=== PATIENT | male | born 1950 | race Caucasian/White ===

== ENCOUNTER 2022-11-16 11:36 | Observation (INO) | payer OTHER, SELFPAY ==
--- NOTE | ~2022-11-16 | CT_ITS ---
EXAMINATION: CT chest, abdomen and pelvis without IV contrast. CLINICAL INDICATIONS: Elevated LFTs. Unintentional weight loss. Smoker. COMPARISON: None. TECHNIQUE: 5 mm thin axial and reformatted 3 mm thin sagittal and coronal images of chest, abdomen and pelvis were obtained without contrast. DLP [id number]. This CT examination was performed using dose optimization technique as appropriate, variously including the following: Automated exposure control Adjustment of MA and/or KV according to patient size(this includes techniques or standardized protocols for targeted exams where dose is matched to indication/reason for exam; extremities or head. Use of iterative reconstruction techniques. FINDINGS: CHEST: LUNGS: There is minimal right apical scarring. Both lungs are otherwise fairly well-expanded and clear of acute pneumonic process. There is no consolidation, mass or atelectasis. Mediastinum: The thyroid lobes are symmetrical and normal. The central trachea and the bronchi widely patent. Heart size and the great vessels are normal caliber. No abnormal size mediastinal or hilar lymph nodes seen. No pericardial effusion seen. Pleura: There is no pleural effusion, thickening or calcified pleural plaques. Axilla: Benign lymph nodes are seen axilla. The chest wall is unremarkable. Osseous structures: No aggressive lytic or sclerotic process seen. Abdomen and pelvis: Liver, ducts and gallbladder: The liver is homogeneous in density, lobulated contour and normal size. There is diffuse ascites. No radiopaque gallstones or wall thickening seen. Spleen: Spleen is borderline normal measuring 12). There is a small accessory splenule inferior to the hilum Pancreas: Unremarkable. Adrenal glands: Unremarkable. Kidneys: There is maintained cortical thickness without any radiopaque calculi or hydronephrosis. Right renal cysts with the largest exophytic midpole cyst measures 4.3 x 4.3 cm. GI tract: There is moderate scattered stool, diverticuli and gas seen throughout the colon without significant distention or diverticulitis. The small bowel loops is nondistended and appears unremarkable. There is diffuse ascites. Scratch that Abdominal wall: Unremarkable. Lymphovascular structures: Abdominal aorta is normal caliber. There are small bilateral retroperitoneal shotty lymph nodes. Prominent collateral vessels are seen in the upper abdomen. Pelvis: The bladder is distended without radiopaque calculi or bladder wall thickening. There is slightly high density urine noted in the bladder measuring 26 Hounsfield units. There is diffuse pelvic ascites. Osseous structures: No aggressive lytic or sclerotic process seen. There is superior endplate Schmorl's node L3 vertebra and vacuum disc phenomena from L2-L3 through L5/S1 disc level. CT/CT abdomen pelvis wo IV con IMPRESSION: No acute cardiopulmonary process seen in the chest. Cirrhosis with diffuse ascites and prominent collateral vessels likely varicose veins in the upper abdomen. Right renal cysts.
--- NOTE | ~2022-11-16 | US_ITS ---
EXAMINATION: US VENOUS ULTRASOUND WITH DOPPLER LOWER EXTREMITY, RIGHT CLINICAL INFORMATION: Evaluate for DVT COMPARISON: None available. TECHNIQUE: Ultrasound of the deep veins is performed from the hip to the calf with compression sonography and color and pulse Doppler assessment. Spectral analysis with color-flow imaging is performed. FINDINGS: There is normal venous compression and respiratory variation and augmented flow. The visualized common femoral vein, superficial femoral vein, profunda femoral vein, popliteal vein, and the trifurcation region shows no evidence of deep venous thrombosis. There is no significant popliteal fossa cyst. 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 Lymph node seen in the proximal left thigh measuring 0.7 cm in short axis (3.7 cm long, 2 cm transverse). If the patient's symptoms persist, followup ultrasound in 5 days 7 days might be of value to exclude proximal propagation from a non-visualized calf vein. US/US venous duplex LE RT IMPRESSION: No DVT demonstrated in the right lower extremity.
--- NOTE | ~2022-11-16 | US_ITS ---
EXAMINATION: Ultrasound-guided paracentesis CLINICAL INFORMATION: Ascites COMPARISON: Previous CT of the abdomen and pelvis 11/16/2022 TECHNIQUE: Procedure and risks and benefits including bleeding and infection were discussed with the patient and informed consent was obtained. The midline pelvis was prepped and draped in the usual sterile fashion. The skin and soft tissues were anesthetized with 1% lidocaine plain. Using ultrasound guidance and a 4 Maltese one stick catheter, access to the ascitic fluid was obtained. 120 mL of clear yellow fluid was removed. Diagnostic specimen was sent as requested by the ordering physician. FINDINGS: There is a small amount of ascites. US/US paracentesis abd w/image IMPRESSION: Ultrasound-guided paracentesis.
[2022-11-16 11:49] LABS: Glucose, Whole Blood 372 mg/dL (60-115)
[2022-11-16 12:05] VITALS: BP 159/94; PULSE 79; RESP 16; TEMP 36.4; O2SAT 97; BMI 23.6
--- NOTE | 2022-11-16 12:06 | ED_ITS ---
HPI - General Adult General Chief complaint: Extremity Injury, Lower Stated complaint: high bs Time Seen by Provider: 11/16/22 12:51 Source: patient Mode of arrival: ambulatory Limitations: no limitations History of Present Illness HPI narrative: This is a 72 years old male presented to the emergency room referred by the urgent care complaining of elevated blood sugar her right lower extremity rash pain ongoing for about 3 or 4 days. Patient denies any past medical history he does not take any medicine he is not a smoker Onset (ago): day(s) (3) Location: lower extremity (rt leg) Radiation: non-radiation Severity: moderate Pain Consistency: constant Relieving factors: none Exacerbating factors: none Related Data Home Medications Medication Instructions Recorded Confirmed No Known Home Meds 11/16/22 11/16/22 Allergies Allergy/AdvReac Type Severity Reaction Status Date / Time No Known Allergies Allergy Verified 11/16/22 11:42 Review of Systems Constitutional: Constitutional: Reports as per HPI Cardiovascular: Cardiovascular: Reports no additional cardiovascular complaints Neurologic: Reports system reviewed and no additional complaints, except as documented PMFSH Past Medical History Attestation statement: The following information was validated with the patient. Social History Social History Smoked in Last 30 Days: Yes Use of substances other than those prescribed or required for medical reasons: No Advance Directives: No Advance Directives Information Provided: Yes Physical Exam ED Vital Signs: Vital Signs - 24 hr 11/16/22 12:05 11/16/22 12:49 11/16/22 14:00 Temperature 97.6 F Pulse Rate 79 Respiratory Rate 16 16 16 Blood Pressure 159/94 H Pulse Oximetry 97 Oxygen Delivery Method Room Air 11/16/22 15:29 Temperature 98.5 F Pulse Rate 73 Respiratory Rate 18 Blood Pressure 148/87 H Pulse Oximetry 96 Oxygen Delivery Method BMI result Body Mass Index 23.6 No toxic-appearing Const General: cooperative Nutritional Appearance: well nourished Orientation/consciousness: patient oriented x3 HENMT Head: Yes normal to inspection General nose exam: Normal external nose present Face and sinus: Yes normal facial exam Mouth: Normal oral and palatal mucosa present Throat: Yes posterior oropharynx normal Neck Neck: Yes normal visual inspection Chest Chest palpation & inspection: normal inspection of the chest Breast/axilla palpation: normal palpation of the breasts Resp Effort & Inspection: normal respiratory effort Auscultation: clear to auscultation bilaterally Cardio Jugular venous distension: no JVD Rate: regular rate Rhythm: regular rhythm GI Inspection: Yes normal to inspection Palpation (GI): Soft to palpation, not firm and nontender Auscultation: normal bowel sounds Neuro General: patient oriented x3 Extrem Other: Right lower extremity exam shows good perfusion of the foot I was able to palpate the pulses. There is a large area of of redness in the ant leg General: Yes capillary refill normal Course Course Course Narrative: This is an RME: Additional HPI, ROS, PE not included below will be deferred to primary provider. Patient is a 72-year-old male presents emergency department from urgent care. He presented there initially for evaluation of a painful itchy rash to the right lower extremity present for about 3 days, He states that he was informed while they are that he has high blood sugar, 370's and was referred to the emergency department. Plan: Labs, placed in WR pending bed availability Medications Administered Generic Name Dose Route Start Last Admin Trade Name Freq PRN Reason Stop Dose Admin Cephalexin HCl 500 mg 11/16/22 15:30 11/16/22 15:43 Cephalexin 500 Mg Capsule PO 500 mg Q12H BHUMIKA Administration Sodium Chloride 3 ml 11/16/22 16:00 11/16/22 15:44 0.9 % Sodium Chloride Flush 3 Ml Syringe IVFLUSH Not Given QSHIFT BHUMIKA Discontinued Medications Generic Name Dose Route Start Last Admin Trade Name Freq PRN Reason Stop Dose Admin Sodium Chloride 1,000 mls @ 999 mls/hr 11/16/22 13:15 11/16/22 15:03 Ns IVCONT 11/16/22 14:15 Infused .Q1H1M BHUMIKA Infusion Ceftriaxone Sodium 1 gm/ 50 mls @ 100 mls/hr 11/16/22 14:45 11/16/22 15:44 Sodium Chloride IV 11/16/22 15:14 Infused ONCE ONE Infusion Insulin Human Lispro 5 unit 11/16/22 14:45 11/16/22 15:04 Insulin Lispro 100 Unit/Ml 3 Ml Vial SUBCUT 11/16/22 14:46 5 unit ONCE ONE Administration Medical Decision Making Medical Decision Making MDM Narrative: Patient presented to the emergency department complaining of with a blood sugar and right lower extremity redness. It is reasonable to do an ultrasound to rule out DVT Differential Diagnosis Differential Diagnoses: The differential diagnosis associated with the presentation includes DVT/ cellulitis Admission/Observation Consideration of admission/observation: Escalation of care including admission/observation considered Consult Healthcare Provider Management of the patient was discussed with: Hospitalist Lab Data MDM Lab Attestation statement: I reviewed the patient's lab results. 11/16/22 12:15 11/16/22 12:15 Labs: Lab Results 11/16/22 11/16/22 11/16/22 Range/Units 11:43 12:15 12:15 WBC 8.3 (4.8-10.8) X10*3/uL RBC 4.13 L (4.60-5.80) X10*6/uL Hgb 14.0 (14.0-18.0) g/dl Hct 41.1 L (42.0-52.0) % MCV 99.5 H (80.0-98.0) fL MCH 33.9 H (27.0-33.0) pg MCHC 34.1 (31.0-36.0) g/dl RDW 12.4 (11.0-16.0) % Plt Count 91 L (160-400) X10*3/uL MPV 10.1 (9.4-12.4) fL Immature Gran % (Auto) 0.4 (0.0-0.4) % Neut % (Auto) 65.3 (45-73) % Lymph % (Auto) 25.3 (20-40) % [place] % (Auto) 7.8 (2-11) % Eos % (Auto) 0.8 (0-4) % Baso % (Auto) 0.4 (0-2) % Lymph # (Auto) 2.1 (1.2-4.9) X10*3/uL [place] # (Auto) 0.7 (0.1-1.2) X10*3/uL Eos # (Auto) 0.1 (0.0-0.4) X10*3/uL Baso # (Auto) 0.0 (0.0-0.2) X10*3/uL Abs Immat Gran (auto) 0.03 (0.00-0.03) X10*3/uL Absolute Neuts (auto) 5.4 (2.0-8.3) x10*3/uL Absolute Nucleated RBC 0.000 (0.0-0.012) X10*3/uL Nucleated RBC % (auto) 0.0 (0.0-0.2) /100WBC ESR (0-15) MM/HR Sodium 137 (135-145) mmol/L Potassium 4.8 (3.3-5.1) mmol/L Chloride 102 (96-108) mmol/L Carbon Dioxide 30 H (22-29) mmol/L Anion Gap 10 L (12-20) BUN 11 (9-16) mg/dL Creatinine 0.97 (0.5-1.4) mg/dL Estim Creat Clear Calc 70.8 Estimated GFR > 60 POC Glucose 372 H* (60-115) mg/dL Random Glucose 387 H* (60-115) mg/dL Estimat Average Glucose mg/dL Hemoglobin A1c % % Calcium 9.0 (8.4-10.2) mg/dL Total Bilirubin 1.2 H (0.0-1.0) mg/dL AST 56 H (5-37) U/L ALT 86 H (0-40) U/L Alkaline Phosphatase 181 H (39-117) U/L C-Reactive Protein Cancelled Total Protein 6.9 (6.5-8.0) g/dL Albumin 3.1 L (3.5-5.0) g/dL 11/16/22 11/16/22 11/16/22 Range/Units 12:15 12:15 13:55 WBC (4.8-10.8) X10*3/uL RBC (4.60-5.80) X10*6/uL Hgb (14.0-18.0) g/dl Hct (42.0-52.0) % MCV (80.0-98.0) fL MCH (27.0-33.0) pg MCHC (31.0-36.0) g/dl RDW (11.0-16.0) % Plt Count (160-400) X10*3/uL MPV (9.4-12.4) fL Immature Gran % (Auto) (0.0-0.4) % Neut % (Auto) (45-73) % Lymph % (Auto) (20-40) % [place] % (Auto) (2-11) % Eos % (Auto) (0-4) % Baso % (Auto) (0-2) % Lymph # (Auto) (1.2-4.9) X10*3/uL [place] # (Auto) (0.1-1.2) X10*3/uL Eos # (Auto) (0.0-0.4) X10*3/uL Baso # (Auto) (0.0-0.2) X10*3/uL Abs Immat Gran (auto) (0.00-0.03) X10*3/uL Absolute Neuts (auto) (2.0-8.3) x10*3/uL Absolute Nucleated RBC (0.0-0.012) X10*3/uL Nucleated RBC % (auto) (0.0-0.2) /100WBC ESR 18 H (0-15) MM/HR Sodium (135-145) mmol/L Potassium (3.3-5.1) mmol/L Chloride (96-108) mmol/L Carbon Dioxide (22-29) mmol/L Anion Gap (12-20) BUN (9-16) mg/dL Creatinine (0.5-1.4) mg/dL Estim Creat Clear Calc Estimated GFR POC Glucose (60-115) mg/dL Random Glucose (60-115) mg/dL Estimat Average Glucose 260 mg/dL Hemoglobin A1c % 10.7 % Calcium (8.4-10.2) mg/dL Total Bilirubin (0.0-1.0) mg/dL AST (5-37) U/L ALT (0-40) U/L Alkaline Phosphatase (39-117) U/L C-Reactive Protein 4.73 H Total Protein (6.5-8.0) g/dL Albumin (3.5-5.0) g/dL Independent Interpretation I performed an independent interpretation of an: Ultrasound Interpretation: no dvt Radiology Impression Discussion of test interpretation with radiology: I have reviewed the radiologist's reading. Independent Historian FINDINGS: There is normal venous compression and respiratory variation and augmented flow. The visualized common femoral vein, superficial femoral vein, profunda femoral vein, popliteal vein, and the trifurcation region shows no evidence of deep venous thrombosis. ? There is no significant popliteal fossa cyst. There is a spray unit feeder vessel demonstrated in the calf. Lymph node seen in the proximal left thigh measuring 0.7 cm in short axis (3.7 cm long, 2 cm transverse). If the patient's symptoms persist, followup ultrasound in 5 days 7 days might be of value to exclude proximal propagation from a non-visualized calf vein. US/US venous duplex LE RT IMPRESSION: No DVT demonstrated in the right lower extremity. Dictated By: Giovanny Crawford MD Signed By: <Electronically signed by Giovanny Crawford MD in [place]> 11/16/22 1405 Prescription Management I considered prescription management with: Antibiotic Discharge Plan Discharge Clinical Impression: Cellulitis of right leg, Newly diagnosed diabetes, Thrombocytopenia Patient Disposition: Admitted As Inpatient
[2022-11-16 12:19] LABS: MANUAL DIFF FLAG NO
[2022-11-16 12:26] LABS: Basophils Percent Auto 0.4 % (0-2); Eosinophils Absolute Auto 0.1 X10*3/uL (0.0-0.4); Eosinophils Percent Auto 0.8 % (0-4); Hematocrit 41.1 % (42.0-52.0); Imm Gran Abs Auto 0.03 X10*3/uL (0.00-0.03); Imm Gran Pct Auto 0.4 % (0.0-0.4); Lymphocytes Absolute Auto 2.1 X10*3/uL (1.2-4.9); Lymphocytes Percent Auto 25.3 % (20-40); Mean Corpuscular HGB Conc 34.1 g/dl (31.0-36.0); Mean Corpuscular Hemoglobin 33.9 pg (27.0-33.0); Mean Corpuscular Volume 99.5 fL (80.0-98.0); Mean Platelet Volume 10.1 fL (9.4-12.4); Monocytes Absolute Auto 0.7 X10*3/uL (0.1-1.2); Monocytes Percent Auto 7.8 % (2-11); Neutrophils Absolute Auto 5.4 x10*3/uL (2.0-8.3); Neutrophils Percent Auto 65.3 % (45-73); Platelet Count 91 X10*3/uL (160-400); Red Blood Count 4.13 X10*6/uL (4.60-5.80); Red Cell Distribution Width 12.4 % (11.0-16.0); White Blood Count 8.3 X10*3/uL (4.8-10.8)
[2022-11-16 12:27] LABS: Estimated Average Glucose 260 mg/dL; Hemoglobin A1c % 10.7 %
[2022-11-16 12:39] LABS: Alanine Aminotransferase 86 U/L (0-40); Albumin Level 3.1 g/dL (3.5-5.0); Alkaline Phosphatase 181 U/L (39-117); Anion Gap 10 (12-20); Aspartate Amino Transferase 56 U/L (5-37); Bilirubin Total 1.2 mg/dL (0.0-1.0); Blood Urea Nitrogen 11 mg/dL (9-16); Carbon Dioxide 30 mmol/L (22-29); Chloride 102 mmol/L (96-108); Creatinine Clr Calc Pharmacy 70.8; Estimated Glomerular Filt Rate > 60; Glucose Random 387 mg/dL (60-115); Potassium 4.8 mmol/L (3.3-5.1); Sodium 137 mmol/L (135-145); Total Protein 6.9 g/dL (6.5-8.0)
[2022-11-16 12:49] VITALS: RESP 16
[2022-11-16] MEDS: 0.9 % Sodium Chloride 1,000 ML 999 ML IVCONT (13:56)
[2022-11-16 13:57] LABS: Erythrocyte Sedimentation Rate 18 MM/HR (0-15)
[2022-11-16 14:00] VITALS: RESP 16
[2022-11-16 14:14] LABS: C Reactive Protein 4.73 mg/dL (< or = 0.50)
[2022-11-16] MEDS: cefTRIAXone sodium 1 GM in 0.9 % Sodium Chloride 50 ML IV (15:04)
[2022-11-16] MEDS: Insulin Lispro 100 UNIT/ML 3 ML VIAL SUBCUT ×3 (15:04→20:53)
--- NOTE | 2022-11-16 15:19 | PC.NURSE ---
pt a&o x4, pleasant, calm, and cooperative. resting quietly on stretcher in no apparent distress. medicated per mar. compliant with care plan. rr even/unlabored. given warm blanket. wctm
--- NOTE | 2022-11-16 15:25 | PHA.MEDREC ---
Pharmacy Consult ? Medication Reconciliation Pharmacy has completed the medication reconciliation.
[2022-11-16 15:29] VITALS: BP 148/87; PULSE 73; RESP 18; TEMP 36.9; O2SAT 96
--- NOTE | 2022-11-16 15:33 | PM.IMHP ---
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 noted several days of RLE cramping, prutitis, then 2 days ptp had red/purple rash on lower leg. denies fever or chills. reports on and off swelling after driving. also reporting about 20lbs unintentional weight loss over several weeks. polydypsia. in ED found to have hyperglycemia. Review of Systems Review of Systems: Yes all other systems are reviewed and are negative [facility] Social History Smoked in Last 30 Days: Yes Use of substances other than those prescribed or required for medical reasons: No Advance Directives: No Advance Directives Information Provided: Yes Meds Allergies Allergy/AdvReac Type Severity Reaction Status Date / Time No Known Allergies Allergy Verified 11/16/22 11:42 Active Medications: Current Medications Cephalexin HCl (Cephalexin 500 Mg Capsule) 500 mg PO Q12H BHUMIKA Dextrose (Dextrose 50 % 25 Gm/50 Ml Syringe) 25 gm IVPUSH Q15M PRN; Protocol PRN Reason: per Hypoglycemia Standing Ord. Glucose (Glucose Gel 15 Gm Gel..Gram.) 15 gm PO Q15M PRN; Protocol PRN Reason: per Hypoglycemia Standing Ord. Insulin Glargine (Insulin Glargine,Hum.Rec.Anlog 100 Unit/Ml 10 Ml Vial) 15 unit SUBCUT BEDTIME BHUMIKA Insulin Human Lispro (Insulin Lispro 100 Unit/Ml 3 Ml Vial) 0 unit SUBCUT QIDACHS BHUMIKA; Protocol Home Medications Medication Instructions Recorded Confirmed Last Taken Type No Known Home Meds 11/16/22 11/16/22 Unknown History Physical Exam Vital Signs and Narrative: Vital Signs: Last Vital Signs Temp 98.5 F 11/16/22 15:29 Pulse 73 11/16/22 15:29 Resp 18 11/16/22 15:29 BP 148/87 H 11/16/22 15:29 Pulse Ox 96 11/16/22 15:29 O2 Del Method Room Air 11/16/22 12:05 BMI result Body Mass Index 23.6 General: AO X 3, no acute distress Resp: CTA bilateral, no accessory muscles used CVS: S1,S2,RRR GI: soft, non tender, non distended Neuro: motor grossly intact, alert Psych: appropriate affect, appropriate insight skin: RLE purple/red rash, non tender, no swelling Results Labs 11/16/22 12:15 11/16/22 12:15 Labs: Laboratory Results - last 24 hr 11/16/22 11/16/22 11/16/22 11:43 12:15 12:15 MCV 99.5 H MCH 33.9 H MCHC 34.1 RDW 12.4 Plt Count 91 L MPV 10.1 Immature Gran % (Auto) 0.4 Neut % (Auto) 65.3 Lymph % (Auto) 25.3 [place] % (Auto) 7.8 Eos % (Auto) 0.8 Baso % (Auto) 0.4 Lymph # (Auto) 2.1 [place] # (Auto) 0.7 Eos # (Auto) 0.1 Baso # (Auto) 0.0 Abs Immat Gran (auto) 0.03 Absolute Neuts (auto) 5.4 Absolute Nucleated RBC 0.000 Nucleated RBC % (auto) 0.0 ESR Anion Gap 10 L Estim Creat Clear Calc 70.8 Estimated GFR > 60 POC Glucose 372 H* Random Glucose 387 H* Estimat Average Glucose Hemoglobin A1c % Calcium 9.0 Total Bilirubin 1.2 H AST 56 H ALT 86 H Alkaline Phosphatase 181 H C-Reactive Protein Cancelled Total Protein 6.9 Albumin 3.1 L 11/16/22 11/16/22 11/16/22 12:15 12:15 13:55 MCV MCH MCHC RDW Plt Count MPV Immature Gran % (Auto) Neut % (Auto) Lymph % (Auto) [place] % (Auto) Eos % (Auto) Baso % (Auto) Lymph # (Auto) [place] # (Auto) Eos # (Auto) Baso # (Auto) Abs Immat Gran (auto) Absolute Neuts (auto) Absolute Nucleated RBC Nucleated RBC % (auto) ESR 18 H Anion Gap Estim Creat Clear Calc Estimated GFR POC Glucose Random Glucose Estimat Average Glucose 260 Hemoglobin A1c % 10.7 Calcium Total Bilirubin AST ALT Alkaline Phosphatase C-Reactive Protein 4.73 H Total Protein Albumin Imaging Radiologist's Impressions: Impressions Venous Duplex 11/16/22 13:24 IMPRESSION: No DVT demonstrated in the right lower extremity. Assessment and Plan (1) Newly diagnosed diabetes: Status: Acute Plan 72M no significant PMH presented with new onset DM and RLE erythema new onset DM with hyperglycemia start basal bolus insulin monitor pocs diabetes education RLE ertyhema differential includes: cellulitis - though not septic, will cover with keflex venous stasis dermaitis - unusual to be unilateral ?vasculitis - also unusual to be unilateral, surgery eval for possible biopsy, check anca, hiv, viral hepatitis thrombocytopenia unkown chornicity monitor elevated lfts ?[place] check ct abd unintentioanl wieght loss in smoker could be from DM check ct chest rule out lung malignancy dvt prophylaxis - lovenox full code Time Spent With Patient Time: Total time managing care of this patient today ____ minutes. Quality Stroke Does the patient have a stroke diagnosis?: No VTE Prior VTE?: No VTE Risk Level:: Medical - moderate - high VTE Device Contraindication: Treatment Not Indicated VTE Drug Contraindication: N/A - Med Ordered
[2022-11-16] MEDS: cephALEXin 500 MG CAPSULE PO (15:43)
--- NOTE | 2022-11-16 16:25 | PM.CNGS ---
History of Present Illness Consult details Consult date: 11/16/22 Narrative: 72M referred for possible biopsy of a leg rash. He ahs noticed red to purplish discoloration of his right lower from belokw the knee to just above the ankle for about 3 days now. He denies trauma to the area. He says he has had itching as well. He does state that the total area seems to have subsided a little bit today. He does not see any PCP. He was found top have elevated blood sugars, and a plately ct of 91. Review of Systems Constitutional: Constitutional: Denies chills and Denies fever(s) Cardiovascular: Cardiovascular: Denies chest pain, Denies dyspnea and Denies dyspnea on exertion Respiratory: Respiratory: Denies cough, Denies dyspnea and Denies dyspnea on exertion Gastrointestinal: Gastrointestinal: Denies hematochezia and Denies change in bowel habits Genitourinary: Genitourinary: Denies hematuria and Denies difficulty urinating Musculoskeletal: Musculoskeletal: Denies back pain and Denies limited range of motion Neurologic: Denies focal weakness and Denies convulsions Psychiatric: Psychiatric: Denies depression and Denies mood swings [facility] Social History Social History Household Members: None Housing: Other 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, 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 Do you presently have visiting nurse or other home services: No Patient Tobacco Use Status: Current someday Tobacco user Tobacco use type: Cigarette Cigarette Packs Per Day: 1 Cigarettes Per Day: 20.0 Smoked in Last 30 Days: Yes Patient Interested in Nicotine Replacement: Yes Patient Given Instructions on How to Stop Smoking: Yes Date Education Initiated: 11/17/22 Second Hand Smoke Exposure: Yes Use of substances other than those prescribed or required for medical reasons: No Currently Displaying Signs/Symptoms of Drug Intoxication Withdrawal: No Have you been hit, kicked, punched, or otherwise hurt by someone within the past year? If so, by whom?: No Do you feel safe in your current relationship?: No Current Relationship Is there a partner from a previous relationship who is making you feel unsafe now?: No Are you made to feel afraid or neglected: No Advance Directives: No Advance Directives Information Provided: Yes Do you have thoughts of harming others: None Do you have a plan to hurt others: No Plan Recently lost weight without trying: No Eating poorly because of decreased appetite: No Nutrition Risks: No Nutritional Risk Poor oral hygiene: No service: No Meds Allergies Allergy/AdvReac Type Severity Reaction Status Date / Time No Known Allergies Allergy Verified 11/16/22 11:42 Active Medications: Current Medications Cephalexin HCl (Cephalexin 500 Mg Capsule) 500 mg PO Q12H [facility] Last Admin: 11/16/22 15:43 Dose: 500 mg Dextrose (Dextrose 50 % 25 Gm/50 Ml Syringe) 25 gm IVPUSH Q15M PRN; Protocol PRN Reason: per Hypoglycemia Standing Ord. Enoxaparin Sodium (Enoxaparin Sodium 40 Mg/0.4 Ml Syringe) 40 mg SUBCUT Q24H BHUMIKA Glucose (Glucose Gel 15 Gm Gel..Gram.) 15 gm PO Q15M PRN; Protocol PRN Reason: per Hypoglycemia Standing Ord. Insulin Glargine (Insulin Glargine,Hum.Rec.Anlog 100 Unit/Ml 10 Ml Vial) 15 unit SUBCUT BEDTIME BHUMIKA Insulin Human Lispro (Insulin Lispro 100 Unit/Ml 3 Ml Vial) 0 unit SUBCUT QIDACHS [facility]; Protocol Sodium Chloride (0.9 % Sodium Chloride Flush 3 Ml Syringe) 3 ml IVFLUSH QSHIFT [facility] Last Admin: 11/16/22 15:44 Dose: Not Given Home Medications Medication Instructions Recorded Confirmed Last Taken Type No Known Home Meds 11/16/22 11/16/22 Unknown History Physical Exam Vital Signs: Vital Signs: Last Vital Signs Temp 98.5 F 11/16/22 15:29 Pulse 73 11/16/22 15:29 Resp 18 11/16/22 15:29 BP 148/87 H 11/16/22 15:29 Pulse Ox 96 11/16/22 15:29 O2 Del Method Room Air 11/16/22 12:05 BMI result Body Mass Index 23.6 Const: General: comfortable and no acute distress Orientation/consciousness: patient oriented x3 Neck: Neck: Yes no lymphadenopathy Resp: Auscultation: clear to auscultation bilaterally Cardio: Rhythm: regular rhythm GI: Palpation (GI): Soft to palpation, nontender and no guarding Neuro: General: patient oriented x3 Extrem: Other: entire skin from below knee to just above ankle with a diffuse confluent macular rash, no oepn wound, no flcutuance Results Labs 11/16/22 12:15 11/16/22 12:15 Labs: Abnormal lab results 11/16/22 11/16/22 11/16/22 Range/Units 11:43 12:15 12:15 RBC 4.13 L (4.60-5.80) X10*6/uL Hct 41.1 L (42.0-52.0) % MCV 99.5 H (80.0-98.0) fL MCH 33.9 H (27.0-33.0) pg Plt Count 91 L (160-400) X10*3/uL ESR (0-15) MM/HR Carbon Dioxide 30 H (22-29) mmol/L Anion Gap 10 L (12-20) POC Glucose 372 H* (60-115) mg/dL Random Glucose 387 H* (60-115) mg/dL Total Bilirubin 1.2 H (0.0-1.0) mg/dL AST 56 H (5-37) U/L ALT 86 H (0-40) U/L Alkaline Phosphatase 181 H (39-117) U/L C-Reactive Protein (< or = 0.50) mg/dL Albumin 3.1 L (3.5-5.0) g/dL 11/16/22 11/16/22 Range/Units 12:15 13:55 RBC (4.60-5.80) X10*6/uL Hct (42.0-52.0) % MCV (80.0-98.0) fL MCH (27.0-33.0) pg Plt Count (160-400) X10*3/uL ESR 18 H (0-15) MM/HR Carbon Dioxide (22-29) mmol/L Anion Gap (12-20) POC Glucose (60-115) mg/dL Random Glucose (60-115) mg/dL Total Bilirubin (0.0-1.0) mg/dL AST (5-37) U/L ALT (0-40) U/L Alkaline Phosphatase (39-117) U/L C-Reactive Protein 4.73 H (< or = 0.50) mg/dL Albumin (3.5-5.0) g/dL Short CBC 11/16/22 Range/Units 12:15 WBC 8.3 (4.8-10.8) X10*3/uL Hgb 14.0 (14.0-18.0) g/dl Hct 41.1 L (42.0-52.0) % Plt Count 91 L (160-400) X10*3/uL BMP 11/16/22 12:15 Sodium 137 Potassium 4.8 Chloride 102 Carbon Dioxide 30 H BUN 11 Creatinine 0.97 Calcium 9.0 Liver Function 11/16/22 Range/Units 12:15 Total Bilirubin 1.2 H (0.0-1.0) mg/dL AST 56 H (5-37) U/L ALT 86 H (0-40) U/L Alkaline Phosphatase 181 H (39-117) U/L Albumin 3.1 L (3.5-5.0) g/dL All other labs normal. Assessment and Plan (1) Cellulitis of right leg: Status: Acute This appears to be more a macular rash and may be related to his low paltelet count. He has newly diagnosed diabetes. He looks well clinically. He does state that the area of the rash may have lessened compalred to yesterday. If this persists and biopsy for diagnosis is required, I can do it at bedside. I will follow while he is in the hospital. Time Spent With Patient Time: Total time managing care of this patient today ____ minutes. Procedures Date of Service Date of Service: 11/19/22
--- NOTE | 2022-11-16 17:11 | PC.NURSE ---
pt changed over to hospital attire, IV placed, labs drawn, pt medicated per mar. awaiting bed assignment. warm blanket given. in no apparent distress gabby. wctm
[2022-11-16 18:21] VITALS: BP 135/70; PULSE 75; RESP 18; TEMP 36.8; O2SAT 97
[2022-11-16 18:23] LABS: Glucose, Whole Blood 167 mg/dL (60-115)
[2022-11-16 20:36] LABS: Glucose, Whole Blood 280 mg/dL (60-115)
[2022-11-16] MEDS: Insulin Glargine,Hum.rec.anlog 100 UNIT/ML 10 ML VIAL 15 UNIT SUBCUT (20:52)
--- NOTE | 2022-11-16 23:33 | PC.NURSE ---
pt awake, denies any pain, waiting for admission
[2022-11-17 00:09] VITALS: BP 138/67; PULSE 76; RESP 16; TEMP 36.8; O2SAT 95
[2022-11-17] MEDS: cephALEXin 500 MG CAPSULE PO ×2 (03:19→16:07)
[2022-11-17 04:15] VITALS: BP 126/68; PULSE 71; RESP 18; TEMP 37; O2SAT 93
[2022-11-17 05:24] LABS: PLT CLUMP 1; Red Cell Distribution Width 12.5 % (11.0-16.0)
[2022-11-17 05:26] LABS: Hematocrit 36.2 % (42.0-52.0); Hemoglobin 12.7 g/dl (14.0-18.0); Mean Corpuscular HGB Conc 35.1 g/dl (31.0-36.0); Mean Corpuscular Hemoglobin 34.5 pg (27.0-33.0); Mean Corpuscular Volume 98.4 fL (80.0-98.0); Mean Platelet Volume 10.4 fL (9.4-12.4); Platelet Count 87 X10*3/uL (160-400); Red Blood Count 3.68 X10*6/uL (4.60-5.80); White Blood Count 5.8 X10*3/uL (4.8-10.8)
[2022-11-17 05:33] LABS: INTERNATIONAL NORM RATIO 1.2 (0.9-1.1); Prothrombin Time 13.8 SEC (10.0-13.1)
[2022-11-17 05:36] LABS: Partial Thromboplastin Time 31.3 SEC (26.0-36.4)
[2022-11-17 05:43] LABS: Anion Gap 9 (12-20); Blood Urea Nitrogen 10 mg/dL (9-16); Calcium 8.2 mg/dL (8.4-10.2); Carbon Dioxide 27 mmol/L (22-29); Chloride 106 mmol/L (96-108); Creatinine Clr Calc Pharmacy 89.2; Estimated Glomerular Filt Rate > 60; Glucose Fasting 273 mg/dL (60-99); Potassium 3.4 mmol/L (3.3-5.1); Sodium 139 mmol/L (135-145)
[2022-11-17 05:57] VITALS: BP 131/76; PULSE 71; RESP 18; TEMP 37.1; O2SAT 93
[2022-11-17 07:46] LABS: Glucose, Whole Blood 275 mg/dL (60-115)
[2022-11-17] MEDS: Insulin Lispro 100 UNIT/ML 3 ML VIAL SUBCUT ×4 (07:47→20:59)
--- NOTE | 2022-11-17 08:29 | PC.NURSE ---
assumed care of pt at 0700. pt a&o x4, pleasant, calm, and cooperative. ate breakfast. medicated per jun. resting quietly on stretcher. awaiting urine sample and bed assignment. currently resting quietly on stretcher in no apparent distress. vss. [email or web address]
[2022-11-17 08:49] LABS: Iron 110 mcg/dL (45-160); Percent Iron Saturation 59 % (15-50); Total Iron Binding Capacity 185 mcg/dL (228-428); Unsaturated Iron Binding 75 ug/dL
--- NOTE | 2022-11-17 09:19 | P.PNIM_ITS ---
Subjective Subjective Date of Service: 11/17/22 Interval History: bloated Physical Exam Vital Signs: Vital Signs: Last Vital Signs Temp 98.7 F 11/17/22 05:57 Pulse 71 11/17/22 05:57 Resp 18 11/17/22 05:57 BP 131/76 11/17/22 05:57 Pulse Ox 93 11/17/22 05:57 O2 Del Method Room Air 11/17/22 05:57 BMI result Body Mass Index 23.6 General: AO X 3, no acute distress Resp: CTA bilateral, no accessory muscles used CVS: S1,S2,RRR GI: soft, non tender, distended Neuro: motor grossly intact, alert Psych: appropriate affect, appropriate insight rle unchanged Objective Data Active Medications Cephalexin HCl (Cephalexin 500 Mg Capsule) 500 mg PO Q12H [facility] Last Admin: 11/17/22 03:19 Dose: 500 mg Documented By: PILO Dextrose (Dextrose 50 % 25 Gm/50 Ml Syringe) 25 gm IVPUSH Q15M PRN; Protocol PRN Reason: per Hypoglycemia Standing Ord. Enoxaparin Sodium (Enoxaparin Sodium 40 Mg/0.4 Ml Syringe) 40 mg SUBCUT Q24H [facility] Glucose (Glucose Gel 15 Gm Gel..Gram.) 15 gm PO Q15M PRN; Protocol PRN Reason: per Hypoglycemia Standing Ord. Insulin Glargine (Insulin Glargine,Hum.Rec.Anlog 100 Unit/Ml 10 Ml Vial) 15 unit SUBCUT BEDTIME [facility] Last Admin: 11/16/22 20:52 Dose: 15 unit Documented By: PILO Insulin Human Lispro (Insulin Lispro 100 Unit/Ml 3 Ml Vial) 0 unit SUBCUT QIDACHS [facility]; Protocol Last Admin: 11/17/22 07:47 Dose: 6 unit Documented By: JOHN Sodium Chloride (0.9 % Sodium Chloride Flush 3 Ml Syringe) 3 ml IVFLUSH QSHIFT [facility] Last Admin: 11/17/22 07:07 Dose: Not Given Documented By: JOHN Non-Admin Reason: Med Not Available Labs 11/17/22 04:54 11/17/22 04:54 Labs: Laboratory Results - last 24 hr 11/16/22 11/16/22 11/16/22 11:43 12:15 12:15 MCV 99.5 H MCH 33.9 H MCHC 34.1 RDW 12.4 Plt Count 91 L MPV 10.1 Immature Gran % (Auto) 0.4 Neut % (Auto) 65.3 Lymph % (Auto) 25.3 Mchenry % (Auto) 7.8 Eos % (Auto) 0.8 Baso % (Auto) 0.4 Lymph # (Auto) 2.1 Mchenry # (Auto) 0.7 Eos # (Auto) 0.1 Baso # (Auto) 0.0 Abs Immat Gran (auto) 0.03 Absolute Neuts (auto) 5.4 Absolute Nucleated RBC 0.000 Nucleated RBC % (auto) 0.0 ESR PT INR APTT Anion Gap 10 L Estim Creat Clear Calc 70.8 Estimated GFR > 60 POC Glucose 372 H* Random Glucose 387 H* Fasting Glucose Estimat Average Glucose Hemoglobin A1c % Calcium 9.0 Iron TIBC % Saturation Unsat Iron Binding Total Bilirubin 1.2 H AST 56 H ALT 86 H Alkaline Phosphatase 181 H C-Reactive Protein Cancelled Total Protein 6.9 Albumin 3.1 L 11/16/22 11/16/22 11/16/22 12:15 12:15 13:55 MCV MCH MCHC RDW Plt Count MPV Immature Gran % (Auto) Neut % (Auto) Lymph % (Auto) Mchenry % (Auto) Eos % (Auto) Baso % (Auto) Lymph # (Auto) Mchenry # (Auto) Eos # (Auto) Baso # (Auto) Abs Immat Gran (auto) Absolute Neuts (auto) Absolute Nucleated RBC Nucleated RBC % (auto) ESR 18 H PT INR APTT Anion Gap Estim Creat Clear Calc Estimated GFR POC Glucose Random Glucose Fasting Glucose Estimat Average Glucose 260 Hemoglobin A1c % 10.7 Calcium Iron TIBC % Saturation Unsat Iron Binding Total Bilirubin AST ALT Alkaline Phosphatase C-Reactive Protein 4.73 H Total Protein Albumin 11/16/22 11/16/22 11/17/22 18:17 20:31 04:54 MCV 98.4 H MCH 34.5 H MCHC 35.1 RDW 12.5 Plt Count 87 L MPV 10.4 Immature Gran % (Auto) Neut % (Auto) Lymph % (Auto) Mchenry % (Auto) Eos % (Auto) Baso % (Auto) Lymph # (Auto) Mchenry # (Auto) Eos # (Auto) Baso # (Auto) Abs Immat Gran (auto) Absolute Neuts (auto) Absolute Nucleated RBC 0.000 Nucleated RBC % (auto) 0.0 ESR PT INR APTT Anion Gap Estim Creat Clear Calc Estimated GFR POC Glucose 167 H 280 H Random Glucose Fasting Glucose Estimat Average Glucose Hemoglobin A1c % Calcium Iron TIBC % Saturation Unsat Iron Binding Total Bilirubin AST ALT Alkaline Phosphatase C-Reactive Protein Total Protein Albumin 11/17/22 11/17/22 11/17/22 04:54 04:54 07:42 MCV MCH MCHC RDW Plt Count MPV Immature Gran % (Auto) Neut % (Auto) Lymph % (Auto) Mchenry % (Auto) Eos % (Auto) Baso % (Auto) Lymph # (Auto) Mchenry # (Auto) Eos # (Auto) Baso # (Auto) Abs Immat Gran (auto) Absolute Neuts (auto) Absolute Nucleated RBC Nucleated RBC % (auto) ESR PT 13.8 H INR 1.2 H APTT 31.3 Anion Gap 9 L Estim Creat Clear Calc 89.2 Estimated GFR > 60 POC Glucose 275 H Random Glucose Fasting Glucose 273 H Estimat Average Glucose Hemoglobin A1c % Calcium 8.2 L D Iron 110 TIBC 185 L % Saturation 59 H Unsat Iron Binding 75 Total Bilirubin AST ALT Alkaline Phosphatase C-Reactive Protein Total Protein Albumin Assessment and Plan (1) Liver cirrhosis: Status: Acute Plan 72M no significant PMH presented with new onset DM and RLE erythema new onset DM with hyperglycemia started basal bolus insulin monitor pocs diabetes education new diagnosis of liver cirrhosis seen on CT complicated by ascites, thrombocytopenia (likely chronic), unintentional weight loss follow up viral hepatitis, iron studies GI eval diagnostic and therapeutic paracentesis planned for 11/18/22 RLE ertyhema differential includes: cellulitis - though not septic, will cover with keflex venous stasis dermaitis - unusual to be unilateral ?vasculitis - also unusual to be unilateral, check anca, hiv, viral hepatitis dvt prophylaxis - lovenox full code reason for continued hospitalization:working up new cirrhosis Time Spent With Patient Time: Total time managing care of this patient today ____ minutes. Quality Stroke Does the patient have a stroke diagnosis?: No VTE Prior VTE?: No VTE Risk Level:: Medical - moderate - high VTE Device Contraindication: Treatment Not Indicated VTE Drug Contraindication: N/A - Med Ordered
[2022-11-17 09:21] LABS: Ferritin 469 ng/mL (20-250)
[2022-11-17] MEDS: Enoxaparin Sodium 40 MG/0.4 ML SYRINGE SUBCUT (09:52)
--- NOTE | 2022-11-17 12:12 | PM.GICN ---
History of Present Illness Data of Consult Service Date: 11/17/22 Requesting physician: Ravinder Barney Primary Care Provider: Unknown Physician HPI Reason for consult: Cirrhosis 72 YM seen at [facility] on 11/16/22 for an elevated blood sugar and right lower extremity rash for 3 to 4 days.? Patient denies any past medical history he does not take any medicine. Pt reports having progressive abdominal distension for the past 2-3 yrs. He also notes early satiety and intermittent rectal bleeding (attributes to hemorrhoids) Pt reports a remote hx of having Hep B which resolved spontaneously. He gives a hx of constipation alternating with diarrhea. 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 States he has been donating his money to the [employer] He gives a hx of wt loss of 20 lbs over the past 6 mths (from 160 to 140 lbs). Pt denies having a colonoscopy in the past. Patient denies major cardiac or pulmonary problems, loud snoring or sleep apnea Denies taking NSAIDS or being on chronic anticoagulation. Pt admits to smoking 1 PPD x 30-40 yrs and quitted recently He denies ETOH abuse Family hx is positive for Esophageal cancer in his Dad. 11/16/22 ABD & PELVIC CT SCAN SHOWED: Liver, ducts and gallbladder: The liver is homogeneous in density, lobulated contour and normal size. There is diffuse ascites. No radiopaque gallstones or wall thickening seen. Spleen: Spleen is borderline normal measuring 12). There is a small accessory splenule inferior to the hilum GI tract: There is moderate scattered stool, diverticuli and gas seen throughout the colon without significant distention or diverticulitis. The small bowel loops is nondistended and appears unremarkable. There is diffuse ascites. Scratch that Lymphovascular structures: Abdominal aorta is normal caliber. There are small bilateral retroperitoneal shotty lymph nodes. Prominent collateral vessels are seen in the upper abdomen. Pelvis: The bladder is distended without radiopaque calculi or bladder wall thickening. There is slightly high density urine noted in the bladder measuring 26 Hounsfield units. There is diffuse pelvic ascites. IMPRESSION: ?No acute cardiopulmonary process seen in the chest. ?Cirrhosis with diffuse ascites and prominent collateral vessels likely varicose veins in the upper abdomen. ?Right renal cysts. Review of Systems Constitutional: Constitutional: Denies chills and Denies fever(s) Cardiovascular: Cardiovascular: Denies chest pain, Denies dyspnea and Denies dyspnea on exertion Respiratory: Respiratory: Denies cough, Denies dyspnea and Denies dyspnea on exertion Gastrointestinal: Gastrointestinal: Denies hematochezia and Denies change in bowel habits Genitourinary: Genitourinary: Denies hematuria and Denies difficulty urinating Musculoskeletal: Musculoskeletal: Denies back pain and Denies limited range of motion Neurologic: Denies focal weakness and Denies convulsions Psychiatric: Psychiatric: Denies depression and Denies mood swings [facility] Past Medical History Medical History (Updated 02/28/23 @ 18:40 by Malia Krueger MD) Hepatitis B History of abdominal paracentesis Cellulitis Liver cirrhosis Diabetes Thrombocytopenia Hepatitis C Social History Social History Household Members: None Housing: Other Housing Other:: 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, 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 Do you presently have visiting nurse or other home services: No Patient Tobacco Use Status: Current everyday Tobacco user Tobacco use type: Cigarette Cigarette Packs Per Day: 0.5 Cigarettes Per Day: 10.0 Second Hand Smoke Exposure: Yes Use of substances other than those prescribed or required for medical reasons: No Are you DNR?: No Advance Directives: No Advance Directives Information Provided: Yes service: No Meds Allergies Allergy/AdvReac Type Severity Reaction Status Date / Time No Known Allergies Allergy Verified 12/13/22 09:01 Active Medications: Current Medications Cephalexin HCl (Cephalexin 500 Mg Capsule) 500 mg PO Q12H [facility] Last Admin: 11/17/22 03:19 Dose: 500 mg Dextrose (Dextrose 50 % 25 Gm/50 Ml Syringe) 25 gm IVPUSH Q15M PRN; Protocol PRN Reason: per Hypoglycemia Standing Ord. Enoxaparin Sodium (Enoxaparin Sodium 40 Mg/0.4 Ml Syringe) 40 mg SUBCUT Q24H [facility] Last Admin: 11/17/22 09:52 Dose: 40 mg Glucose (Glucose Gel 15 Gm Gel..Gram.) 15 gm PO Q15M PRN; Protocol PRN Reason: per Hypoglycemia Standing Ord. Insulin Glargine (Insulin Glargine,Hum.Rec.Anlog 100 Unit/Ml 10 Ml Vial) 15 unit SUBCUT BEDTIME [facility] Last Admin: 11/16/22 20:52 Dose: 15 unit Insulin Human Lispro (Insulin Lispro 100 Unit/Ml 3 Ml Vial) 0 unit SUBCUT QIDACHS [facility]; Protocol Last Admin: 11/17/22 07:47 Dose: 6 unit Sodium Chloride (0.9 % Sodium Chloride Flush 3 Ml Syringe) 3 ml IVFLUSH QSMDFT [facility] Last Admin: 11/17/22 07:07 Dose: Not Given Home Medications Medication Instructions Recorded Confirmed Last Taken Type magnesium 02/28/23 02/27/23 History Physical Exam Vital Signs: Vital Signs: Last Vital Signs Temp 98.7 F 11/17/22 05:57 Pulse 71 11/17/22 05:57 Resp 18 11/17/22 05:57 BP 131/76 11/17/22 05:57 Pulse Ox 93 11/17/22 05:57 O2 Del Method Room Air 11/17/22 05:57 BMI result Body Mass Index 23.6 Const: General: no acute distress Nutritional Appearance: average body habitus Orientation/consciousness: patient oriented x3 Limitations: no limitations HEENT: Head: Yes normal to inspection Ears: hearing grossly normal bilaterally Mouth: Normal oral and palatal mucosa present Eyes: Sclerae: sclerae normal Pupils: Equal, round and reactive pupils present Neck: Neck: Yes normal visual inspection Chest: Chest palpation & inspection: normal inspection of the chest Resp: Effort & Inspection: normal respiratory effort Auscultation: clear to auscultation bilaterally Cardio: Palpation: normal PMI Rate: regular rate Rhythm: regular rhythm Heart sounds: S1 normal heart sound present, S2 normal heart sound present and no murmurs GI: Inspection: Yes distended (due to ascites) Palpation (GI): Soft to palpation, nontender and No hepatosplenomegaly present Auscultation: normal bowel sounds Rectal Exam - Male: Yes deferred Skin: Rashes: other (maculo-papular skin rash over Rt LE) Neuro: General: patient oriented x3, gait normal and moves all extremities Cranial nerves: Yes Equal, round and reactive pupils present Psych: Appearance: grossly normal Mental Status: mental status grossly normal Results Labs 11/18/22 05:34 11/18/22 05:32 Labs: Short CBC 11/16/22 11/17/22 Range/Units 12:15 04:54 WBC 8.3 5.8 (4.8-10.8) X10*3/uL Hgb 14.0 12.7 L (14.0-18.0) g/dl Hct 41.1 L 36.2 L (42.0-52.0) % Plt Count 91 L 87 L (160-400) X10*3/uL BMP 11/16/22 11/17/22 12:15 04:54 Sodium 137 139 Potassium 4.8 3.4 D Chloride 102 106 Carbon Dioxide 30 H 27 BUN 11 10 Creatinine 0.97 0.77 Calcium 9.0 8.2 L D Liver Function 11/16/22 Range/Units 12:15 Total Bilirubin 1.2 H (0.0-1.0) mg/dL AST 56 H (5-37) U/L ALT 86 H (0-40) U/L Alkaline Phosphatase 181 H (39-117) U/L Albumin 3.1 L (3.5-5.0) g/dL Assessment and Plan (1) Liver cirrhosis: Status: Acute (2) Thrombocytopenia: Status: Acute Plan 72 YM seen at [facility] on 11/16/22 for an elevated blood sugar and right lower extremity rash for 3 to 4 days.? Pt reports having progressive abdominal distension for the past 2-3 yrs. He also notes early satiety and intermittent rectal bleeding (attributes to hemorrhoids) Pt reports a remote hx of having ?Hep B which resolved spontaneously. He gives a hx of wt loss of 20 lbs over the past 6 mths (from 160 to 140 lbs). He denies ETOH abuse Abd CT scan showed Cirrhosis with diffuse ascites and prominent collateral vessels likely varicose veins in the upper abdomen. MELD score is 9 Etiology of cirrhosis is unclear - possibly viral hepatitis, hemochromatosis, SWENSON, autoimmune hepatitis, celiac disease RECOMMENDATIONS: 1. Check TIP, Anti dsDNA, AMA, ASMA, SPEP, celiac serologies - added to am labs 2. US guided paracenteses and send ascitic fluid for cell count, albumin, protein and amylase 11/18/22 Labs showed positive Hep C ab Advise checking Hep C viral load, genotype and cryoglobulins to determine if pt has active Hep C and needs treatment. TIP, Anti dsDNA, AMA, ASMA, SPEP, celiac serologies were negative Iron studies were consistent with anemia of chronic disease. Hepatitis C genotype was 1b and cryoglobulins were negative Patient is scheduled for a follow-up appointment in the GI clinic to discuss and initiate treatment for hepatitis-C. Time Spent With Patient Time: Total time managing care of this patient today ____ minutes. Procedures Date of Service Date of Service: 03/01/23
[2022-11-17 13:04] LABS: Glucose, Whole Blood 227 mg/dL (60-115)
[2022-11-17 14:30] VITALS: BP 136/75; PULSE 83; RESP 18; TEMP 36.4; O2SAT 96
[2022-11-17 15:35] VITALS: BP 118/69; PULSE 80; RESP 16; TEMP 36.6; O2SAT 97
[2022-11-17] MEDS: 0.9 % Sodium Chloride Flush 3 ML SYRINGE IVFLUSH ×2 (16:07→21:00)
[2022-11-17 16:17] LABS: Glucose, Whole Blood 268 mg/dL (60-115)
[2022-11-17 19:08] VITALS: BP 130/75; PULSE 77; RESP 16; TEMP 36.9; O2SAT 95
[2022-11-17 20:27] LABS: Glucose, Whole Blood 219 mg/dL (60-115)
[2022-11-17] MEDS: Insulin Glargine,Hum.rec.anlog 100 UNIT/ML 10 ML VIAL 15 UNIT SUBCUT (20:59)
[2022-11-18] MEDS: cephALEXin 500 MG CAPSULE PO ×2 (03:08→14:59)
[2022-11-18 04:00] VITALS: BP 124/76; PULSE 70; RESP 16; TEMP 36.2; O2SAT 94
[2022-11-18 06:33] LABS: Hematocrit 36.7 % (42.0-52.0); Hemoglobin 12.8 g/dl (14.0-18.0); Mean Corpuscular HGB Conc 34.9 g/dl (31.0-36.0); Mean Corpuscular Hemoglobin 34.1 pg (27.0-33.0); Mean Corpuscular Volume 97.9 fL (80.0-98.0); Mean Platelet Volume 10.1 fL (9.4-12.4); Red Blood Count 3.75 X10*6/uL (4.60-5.80); Red Cell Distribution Width 12.5 % (11.0-16.0); White Blood Count 5.4 X10*3/uL (4.8-10.8)
[2022-11-18 06:36] LABS: Platelet Count 93 X10*3/uL (160-400)
[2022-11-18 06:41] LABS: Alanine Aminotransferase 72 U/L (0-40); Albumin Level 2.5 g/dL (3.5-5.0); Alkaline Phosphatase 118 U/L (39-117); Anion Gap 9 (12-20); Aspartate Amino Transferase 70 U/L (5-37); Bilirubin Direct 0.6 mg/dL (0.0-0.5); Bilirubin Total 1.1 mg/dL (0.0-1.0); Blood Urea Nitrogen 12 mg/dL (9-16); Calcium 8.2 mg/dL (8.4-10.2); Carbon Dioxide 28 mmol/L (22-29); Chloride 107 mmol/L (96-108); Creatinine Clr Calc Pharmacy 92.8; Estimated Glomerular Filt Rate > 60; Glucose Fasting 218 mg/dL (60-99); Potassium 3.5 mmol/L (3.3-5.1); Sodium 140 mmol/L (135-145); Total Protein 5.7 g/dL (6.5-8.0)
[2022-11-18 06:58] LABS: Amphetamine Screen Urine Not Detected (Not Detect); Barbiturates, Urine Not Detected (Not Detect); Benzodiazepines Screen Urine Not Detected (Not Detect); Cannabinoid Screen Urine Not Detected (Not Detect); Cocaine Screen Urine Not Detected (Not Detect); Fentanyl, urine Not Detected (Not Detect); Opiate Screen Urine Not Detected (Not Detect); Phencyclidine Screen Urine Not Detected (Not Detect)
[2022-11-18] MEDS: 0.9 % Sodium Chloride Flush 3 ML SYRINGE IVFLUSH ×3 (07:15→22:21)
[2022-11-18 07:35] LABS: Glucose, Whole Blood 188 mg/dL (60-115)
[2022-11-18] MEDS: Insulin Lispro 100 UNIT/ML 3 ML VIAL SUBCUT ×4 (07:51→22:21)
[2022-11-18 07:53] VITALS: BP 130/72; PULSE 65; RESP 16; TEMP 36.2; O2SAT 93
--- NOTE | 2022-11-18 08:08 | P.PNIM_ITS ---
Subjective Subjective Date of Service: 11/18/22 Interval History: no new complaints Physical Exam Vital Signs: Vital Signs: Last Vital Signs Temp 97.1 F 11/18/22 07:53 Pulse 65 11/18/22 07:53 Resp 16 11/18/22 07:53 BP 130/72 11/18/22 07:53 Pulse Ox 93 11/18/22 07:53 O2 Del Method Room Air 11/18/22 07:53 BMI result Body Mass Index 23.6 Const: General: no acute distress Nutritional Appearance: average body habitus Orientation/consciousness: patient oriented x3 Limitations: no limitations HEENT: Head: Yes normal to inspection Ears: hearing grossly normal bilaterally Mouth: Normal oral and palatal mucosa present Eyes: Sclerae: sclerae normal Pupils: Equal, round and reactive pupils present Neck: Neck: Yes normal visual inspection Chest: Chest palpation & inspection: normal inspection of the chest Resp: Effort & Inspection: normal respiratory effort Auscultation: clear to auscultation bilaterally Cardio: Palpation: normal PMI Rate: regular rate Rhythm: regular rhythm Heart sounds: S1 normal heart sound present, S2 normal heart sound present and no murmurs GI: Inspection: Yes distended (due to ascites) Palpation (GI): Soft to palpation, nontender and No hepatosplenomegaly present Auscultation: normal bowel sounds Rectal Exam - Male: Yes deferred Skin: Rashes: other (maculo-papular skin rash over Rt LE) Neuro: General: patient oriented x3, gait normal and moves all extremities Cranial nerves: Yes Equal, round and reactive pupils present Psych: Appearance: grossly normal Mental Status: mental status grossly normal Objective Data Active Medications Cephalexin HCl (Cephalexin 500 Mg Capsule) 500 mg PO Q12H [facility] Last Admin: 11/18/22 03:08 Dose: 500 mg Documented By: SENIA Dextrose (Dextrose 50 % 25 Gm/50 Ml Syringe) 25 gm IVPUSH Q15M PRN; Protocol PRN Reason: per Hypoglycemia Standing Ord. Enoxaparin Sodium (Enoxaparin Sodium 40 Mg/0.4 Ml Syringe) 40 mg SUBCUT Q24H [facility] Last Admin: 11/18/22 07:15 Dose: Not Given Documented By: MIRTA Non-Admin Reason: paracentesis today Glucose (Glucose Gel 15 Gm Gel..Gram.) 15 gm PO Q15M PRN; Protocol PRN Reason: per Hypoglycemia Standing Ord. Insulin Glargine (Insulin Glargine,Hum.Rec.Anlog 100 Unit/Ml 10 Ml Vial) 15 unit SUBCUT BEDTIME [facility] Last Admin: 11/17/22 20:59 Dose: 15 unit Documented By: SENIA Insulin Human Lispro (Insulin Lispro 100 Unit/Ml 3 Ml Vial) 0 unit SUBCUT QIDACHS [facility]; Protocol Last Admin: 11/18/22 07:51 Dose: 2 unit Documented By: MIRTA Sodium Chloride (0.9 % Sodium Chloride Flush 3 Ml Syringe) 3 ml IVFLUSH QSHIFT [facility] Last Admin: 11/18/22 07:15 Dose: 3 ml Documented By: MIRTA Labs 11/18/22 05:34 11/18/22 05:32 Labs: Laboratory Results - last 24 hr 11/17/22 11/17/22 11/17/22 04:54 12:54 16:07 MCV MCH MCHC RDW Plt Count MPV Absolute Nucleated RBC Nucleated RBC % (auto) Anion Gap Estim Creat Clear Calc Estimated GFR POC Glucose 227 H 268 H Fasting Glucose Calcium Iron 110 TIBC 185 L % Saturation 59 H Unsat Iron Binding 75 Ferritin 469 H Total Bilirubin Direct Bilirubin AST ALT Alkaline Phosphatase Total Protein Albumin Urine Opiates Screen Urine Fentanyl Screen Ur Barbiturates Screen Ur Phencyclidine Scrn Ur Amphetamines Screen U Benzodiazepines Scrn Urine Cocaine Screen U Marijuana (THC) Screen Urine Ethyl Alcohol 11/17/22 11/18/22 11/18/22 20:08 05:32 05:34 MCV 97.9 MCH 34.1 H MCHC 34.9 RDW 12.5 Plt Count 93 L MPV 10.1 Absolute Nucleated RBC 0.000 Nucleated RBC % (auto) 0.0 Anion Gap 9 L Estim Creat Clear Calc 92.8 Estimated GFR > 60 POC Glucose 219 H Fasting Glucose 218 H Calcium 8.2 L Iron TIBC % Saturation Unsat Iron Binding Ferritin Total Bilirubin 1.1 H Direct Bilirubin 0.6 H AST 70 H ALT 72 H Alkaline Phosphatase 118 H Total Protein 5.7 L Albumin 2.5 L Urine Opiates Screen Urine Fentanyl Screen Ur Barbiturates Screen Ur Phencyclidine Scrn Ur Amphetamines Screen U Benzodiazepines Scrn Urine Cocaine Screen U Marijuana (THC) Screen Urine Ethyl Alcohol 11/18/22 11/18/22 11/18/22 06:26 06:27 07:26 MCV MCH MCHC RDW Plt Count MPV Absolute Nucleated RBC Nucleated RBC % (auto) Anion Gap Estim Creat Clear Calc Estimated GFR POC Glucose 188 H Fasting Glucose Calcium Iron TIBC % Saturation Unsat Iron Binding Ferritin Total Bilirubin Direct Bilirubin AST ALT Alkaline Phosphatase Total Protein Albumin Urine Opiates Screen Not Detected Urine Fentanyl Screen Not Detected Ur Barbiturates Screen Not Detected Ur Phencyclidine Scrn Not Detected Ur Amphetamines Screen Not Detected U Benzodiazepines Scrn Not Detected Urine Cocaine Screen Not Detected U Marijuana (THC) Screen Not Detected Urine Ethyl Alcohol Cancelled Assessment and Plan (1) Liver cirrhosis: Status: Acute Plan 72M no significant PMH presented with new onset DM and RLE erythema new onset DM with hyperglycemia started basal bolus insulin monitor pocs diabetes education new diagnosis of liver cirrhosis seen on CT complicated by ascites, thrombocytopenia (likely chronic), unintentional weight loss follow up viral hepatitis, AI studies, GI appreciated diagnostic and therapeutic paracentesis planned for 11/18/22 RLE ertyhema differential includes: cellulitis - though not septic, will cover with keflex venous stasis dermatitis - unusual to be unilateral ?vasculitis - also unusual to be unilateral, check anca, hiv, viral hepatitis dvt prophylaxis - lovenox full code reason for continued hospitalization:working up new cirrhosis Time Spent With Patient Time: Total time managing care of this patient today ____ minutes. Quality Stroke Does the patient have a stroke diagnosis?: No VTE Prior VTE?: No VTE Risk Level:: Medical - moderate - high VTE Device Contraindication: Treatment Not Indicated VTE Drug Contraindication: N/A - Med Ordered
--- NOTE | 2022-11-18 09:00 | MHC.CLN ---
nUTRITION INCREASED KCALS TO DIABETIC 2000 KCALS.
[2022-11-18 09:02] LABS: HBS Num1 0.32 mIU/mL (0-7.99); HBc Num1 0.35 S/CO (0.00-0.79); HBsAGNum1 0.42 S/CO (0.00-0.99); HIV AB/AG Nonreactive (Nonreactive); HIV Num 1 0.05 S/CO (0.00-0.99); Hepatitis B Core Antibody Nonreactive (Nonreactive); Hepatitis B Surface Antigen Negative (Negative); ~HepC Num1 14.19 S/CO (0.00-0.79); ~Hepatitis B Surface Antibody NONREACTIVE (Nonreactive); ~Hepatitis C Antibody Reactive (Nonreactive)
[2022-11-18 11:17] LABS: Glucose, Whole Blood 247 mg/dL (60-115)
--- NOTE | 2022-11-18 11:39 | MHC.CM.PN ---
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
--- NOTE | 2022-11-18 14:45 | HO.RADPN ---
RADIOLOGY Narrative Narrative: RLQ/pelvis paracentesis performed using 4 fr catheter. 120 mL clear yellow fluid removed. Speimen sent.
[2022-11-18] MEDS: Lidocaine HCl 1 % MPF 5 ML VIAL SUBCUT (15:09)
[2022-11-18 15:28] VITALS: BP 133/76; PULSE 62; RESP 16; TEMP 35.9; O2SAT 97
[2022-11-18 15:45] LABS: Glucose, Whole Blood 201 mg/dL (60-115)
[2022-11-18 15:51] LABS: MN% 34.7 %; PMN% 65.3 %; RBC Peritoneal Fluid 0.002 X10*6/uL; WBC Peritoneal Fluid 1.503 X10*3/uL
[2022-11-18 18:19] LABS: BF Shift QC OK YES; Lymphocyte Peritoneal Fl 46 %; Monocytes Peritoneal Fl 20 %; Neutrophils Peritoneal Fluid 33 %; Other Peritioneal Fl 1 %
--- NOTE | 2022-11-18 18:53 | PC.NURSE ---
Pt with post paracentesis dressing to lower right abdomen. CDI. denies pain
[2022-11-18 20:00] VITALS: BP 144/71; PULSE 69; RESP 16; TEMP 36.3; O2SAT 96
[2022-11-18 20:41] LABS: Glucose, Whole Blood 323 mg/dL (60-115)
[2022-11-18] MEDS: Insulin Glargine,Hum.rec.anlog 100 UNIT/ML 10 ML VIAL 15 UNIT SUBCUT (22:21)
[2022-11-18 22:33] LABS: Albumin Peritoneal Fluid 0.6 GM/DL; Glucose Peritoneal Fluid 268 MG/DL; Total Protein Peritoneal Fluid 0.9 GM/DL
[2022-11-19] MEDS: cephALEXin 500 MG CAPSULE PO (03:45)
[2022-11-19 04:00] VITALS: BP 115/88; PULSE 78; RESP 16; TEMP 36.6; O2SAT 95
[2022-11-19 07:26] LABS: Glucose, Whole Blood 225 mg/dL (60-115)
[2022-11-19 07:30] VITALS: BP 123/72; PULSE 65; RESP 16; TEMP 36.1; O2SAT 95
[2022-11-19] MEDS: 0.9 % Sodium Chloride Flush 3 ML SYRINGE IVFLUSH (08:06)
[2022-11-19] MEDS: Insulin Lispro 100 UNIT/ML 3 ML VIAL SUBCUT (08:06)
--- NOTE | 2022-11-19 10:27 | P.DS_ITS ---
DS: Providers Provider Date of Service: 11/19/22 Date of admission: 11/16/22 15:31 Primary care physician: Unknown Physician Consults: 11/16/22 15:30 Consult to General Surgery Routine Consulting Provider: [facility] General Surgeons Reason for consultation: ?vasculitic rash for biopsy 11/17/22 08:23 Consult to Gastroenterology Routine Consulting Provider: Malia Krueger Reason for consultation: new diagnosis cirrhosis DS: Diagnosis Discharge Diagnosis (1) Cellulitis of right leg: Status: Acute DS: Summary Hospital Course Hospital Course: from initial hpi: 72M no significant PMH, 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 noted several days of RLE cramping, prutitis, then 2 days ptp had red/purple rash on lower leg. denies fever or chills. reports on and off swelling after driving. also reporting about 20lbs unintentional weight loss over several weeks. polydypsia. in ED found to have hyperglycemia. hospital course: patient was amditted for new onset DM with hyperlgycemia, was treated with baseal bolus insulin. on discharge will be given metformin and januvia. patient had CT abd and chest to investigate weight loss. revealed new diagnosis of liver cirrhosis, varices, ascites. work up revealed positive hcv, viral load pending. underwent diagnostic paracentesis, total WBC 1500 with 33% PMNs, will be treated with 3 more days ceftin and then will do bactrim ds daily for prophylaxis as total protein only 0.9. patient's initial complaint was of RLE macular rash with possible overlying bacterial cellulitis,. it improved with keflex. rash may be related to thrombocyotpenia from cirrhosis, can follow up outpatient. Time Spent with Patient Time attestation: Total time managing care of this patient today ____ minutes. Discharge coordination time: Greater than 30 minutes Quality: Safe Use of Opioids Does Pt have an Active Cancer Diagnosis on the Problem List?: No Quality: Stroke Does the patient have a stroke diagnosis?: No Physical Exam Vital Signs: Vital Signs: Last Vital Signs Temp 97.0 F 11/19/22 07:30 Pulse 65 11/19/22 07:30 Resp 16 11/19/22 07:30 BP 123/72 11/19/22 07:30 Pulse Ox 95 11/19/22 07:30 O2 Del Method Room Air 11/19/22 07:30 BMI result Body Mass Index 23.6 ao times 3, abd less distended, rle rash improved DS: Data Data Completed and Pending Pending studies at discharge: Pending at discharge 11/18/22 14:44 Cytology [PTH] Routine Labs on day of discharge: Laboratory Results - last 24 hr 11/18/22 11/18/22 11/18/22 11:08 14:36 14:36 POC Glucose 247 H Peritoneal WBC 1.503 Peritoneal RBC 0.002 Periton Neutrophils 33 Periton Lymphocytes 46 Peritoneal Monocytes 20 Peritoneal Other Cells 1 Peritoneal Tot Protein 0.9 Peritoneal Albumin 0.6 Peritoneal Glucose 268 11/18/22 11/18/22 11/19/22 15:41 20:28 07:12 POC Glucose 201 H 323 H 225 H Peritoneal WBC Peritoneal RBC Periton Neutrophils Periton Lymphocytes Peritoneal Monocytes Peritoneal Other Cells Peritoneal Tot Protein Peritoneal Albumin Peritoneal Glucose Preliminary micro results at discharge 11/18/22 14:36 Routine Culture - Preliminary Abdominal Fluid No growth to date. Anaerobic Culture - Preliminary No growth to date. Discharge Plan Discharge Anticipated Discharge Date/Time: 11/19/22 10:21 Patient Disposition: Home, Self-Care Discharge Diagnosis: new DM, HCV cirrhosis, SBP Referrals: Malia Krueger MD [Physician] - 1 Week Physician,Unknown J [Primary Care Provider] - 1 Week Discharge Medications: New metformin 1,000 mg tablet 1,000 mg PO BIDWMEAL Qty: 60 0RF Januvia 50 mg tablet 50 mg PO DAILY Qty: 30 0RF (DME) FreeStyle Lite Strips Strip Qty: 100 0RF Rx Instructions: Test four times a day or as directed. (DME) blood-glucose meter [FreeStyle Lite Meter] Kit Qty: 1 0RF Rx Instructions: As Directed alcohol swabs Pads, Medicated 1 pad TOPICAL QIDACHS Qty: 100 0RF Rx Instructions: Use four times a day or as directed. (DME) lancets [FreeStyle Lancets] 28 gauge misc Qty: 100 0RF Rx Instructions: Test four times a day or as directed. sulfamethoxazole-trimethoprim [Bactrim DS] 800-160 mg tablet 1 tab PO DAILY Qty: 30 0RF cefuroxime axetil 500 mg tablet 500 mg PO BID Qty: 6 0RF Discharge Orders: Discharge Order (Routine); Ordered 11/19/22 Ordered By: Ravinder Barney Diet: Diabetic diet Activity on Discharge: As tolerated Stand Alone Forms: Patient Portal Discharge page Care Plan Goals: manage new diagnoses Health Concerns: hcv cirrhosis, sbp, diabetes Plan of Treatment: for diabetes - start metformin, januvia, monitor sugars in morning, evening, and before meals, bring data to next appointment for HCV cirrhosis with SBP - follow up with gi, ceftin 3 more days for SBP, then bactrim once daily for prophylaxis Assessment: see above
--- NOTE | 2022-11-19 10:39 | MHC.CM.PN ---
pt dcd home with no skilled servceis ordered by
[2022-11-20 13:09] LABS: Alpha Fetoprotein 2.2 ng/mL (<6.1)
[2022-11-20 13:28] LABS: Prot Elec - Albumin 2.6 g/dL (3.8-4.8); Prot Elec - Alpha1 0.2 g/dL (0.2-0.3); Prot Elec - Alpha2 0.5 g/dL (0.5-0.9); Prot Elec - Beta 1 0.3 g/dL (0.4-0.6); Prot Elec - Beta 2 0.4 g/dL (0.2-0.5); Prot Elec - Gamma 1.3 g/dL (0.8-1.7); Prot Elec - Total Protein 5.3 g/dL (6.1-8.1)
[2022-11-20 14:08] LABS: Alpha 1 Anti-trypsin 140 mg/dL (83-199)
[2022-11-20 14:58] LABS: Immunoglobulin A 376 mg/dL (70-320)
[2022-11-20 15:19] LABS: Immunoglobulin A 387 mg/dL (70-320)
[2022-11-20 17:12] LABS: Myeloperoxidase Antibody <1.0 AI; Proteinase 3 PR3 Antibodies <1.0 AI
[2022-11-20 17:12] LABS: Transglutaminase Ab IgG <1.0 U/mL; Transglutaminase IgA <1.0 U/mL
[2022-11-21 14:39] LABS: Mitochondrial Antibodies NEGATIVE (NEGATIVE)
[2022-11-21 15:28] LABS: HCV Log PCR 5.68 Log IU/mL (NOT DETECTED); HepC Viral Load 477000 IU/mL (NOT DETECTED)
[2022-11-22 08:29] LABS: Anti Nuclear Antibody Screen NEGATIVE (NEGATIVE)
[2022-11-23 13:39] LABS: Smooth Muscle Antibody <20 U (<20)
[2022-11-25 12:33] LABS: DNAds, Crithidia Antibody Negative (Negative)
== END 2022-11-19 11:54 | disposition home or self-care (01) ==
LOC: HO.ED 15:07 → HO.EDOVER 15:44 → HO.S3 11-17 12:06
PROVIDERS: Internal Medicine Gastroenterology; Nurse Practitioner Family; Radiology Diagnostic Radiology; Admitting Provider Internal Medicine; Emergency Provider Emergency Medicine; Visit Provider Internal Medicine
DX: L03.115 Cellulitis of right lower limb (principal); E11.9 Type 2 diabetes mellitus without complications; K74.60 Unspecified cirrhosis of liver; B19.20 Unspecified viral hepatitis C without hepatic coma; K65.2 Spontaneous bacterial peritonitis; D69.6 Thrombocytopenia, unspecified; M79.661 Pain in right lower leg; R63.4 Abnormal weight loss; Z68.23 Body mass index [BMI] 23.0-23.9, adult; Z79.899 Other long term (current) drug therapy
CPT/HCPCS: 36415; 49083; 71250; 74176; 80048; 80053; 80076; 80307; 82042; 82103; 82105; 82595; 82728; 82784; 82945; 82947; 83036; 83540; 84157; 84165; 85025; 85027; 85610; 85652; 85730; 86015; 86021; 86038; 86140; 86255; 86256; 86364; 86704; 86706; 86803; 87070; 87073; 87205; 87340; 87389; 87522; 87902; 88112; 89051; 93971; 96361; 96365; 96372; 99221; 99285; J0696; J1650

== ENCOUNTER → 2022-11-16 11:50 | Outpatient (BNV) | payer OTHER, SELFPAY | PROVIDERS: Emergency Provider Emergency Medicine; Visit Provider Internal Medicine | DX: L03.115 Cellulitis of right lower limb (principal) | CPT/HCPCS: 99223; 99232; 99233; 99239 ==

== ENCOUNTER 2022-11-16 15:31 | Outpatient (BNV) | payer OTHER, SELFPAY | END 2022-11-18 14:22 | PROVIDERS: Admitting Provider Internal Medicine; Emergency Provider Emergency Medicine; Visit Provider Radiology Diagnostic Radiology | DX: K74.60 Unspecified cirrhosis of liver (principal); R18.8 Other ascites | CPT/HCPCS: 49083 ==

== ENCOUNTER → 2022-11-16 15:31 | Outpatient (BNV) | payer OTHER, SELFPAY | PROVIDERS: Admitting Provider Internal Medicine; Emergency Provider Emergency Medicine; Visit Provider Surgery | DX: L03.115 Cellulitis of right lower limb (principal) | CPT/HCPCS: 99222 ==

== ENCOUNTER → 2022-11-16 15:31 | Outpatient (BNV) | payer OTHER, SELFPAY | PROVIDERS: Admitting Provider Internal Medicine; Emergency Provider Emergency Medicine; Visit Provider Internal Medicine Gastroenterology | DX: K74.60 Unspecified cirrhosis of liver (principal); D69.6 Thrombocytopenia, unspecified; R18.8 Other ascites | CPT/HCPCS: 99232 ==

== ENCOUNTER 2022-12-13 08:57 | Outpatient (AMB) | payer OTHER, SELFPAY ==
--- NOTE | 2022-12-13 09:01 | A.OFFVIS_ITS ---
Intake Vital Signs 12/13/22 09:03 Height 5 ft 10 in Weight 138 lb BMI 19.8 BP 154/94 H Blood Pressure Location Lt brachial Position Sitting Pulse 102 H Intake Visit Reasons: ED follow up Intake Note: Patient new consult for ED follow up Patient denies any GI issues. Manager Books Required: No Accompanied by: Self / Same As Patient Allergies No Known Allergies Allergy (Verified 12/13/22 09:01) Medication List - Last Reconciled 12/13/22 by Malia Krueger MD alcohol swabs 1 pad topical QIDACHS blood sugar diagnostic (FreeStyle Lite Strips) Test four times a day or as directed. blood-glucose meter (FreeStyle Lite Meter kit) As Directed cefuroxime axetil 500 mg PO BID furosemide (Lasix) 20 mg PO DAILY lancets (FreeStyle Lancets) Test four times a day or as directed. metformin 1,000 mg PO BIDWMEAL sitagliptin phosphate (Januvia) 50 mg PO DAILY sulfamethoxazole-trimethoprim 800-160 mg (Bactrim DS) 1 tab PO DAILY HPI ED follow up HPI Details GI clinic visit for this 72 YM for follow-up after recent hospitalization for chronic hepatitis C and cirrhosis complicated by ascites and SBP MELD score was 9 LABS IN [facility] : [] IMAGING STUDIES: [] ENDOSCOPIC STUDIES: [] TODAY'S VISIT: Has been doing ok since discharged Had Hep B in the mid 90s - from drinking out of a very dirty glass . Unsure how he acquired Hep C - denies IVDA or blood transfusion or exposure to anyone with Hep C. Appetite is good and abd distension has improved. Denies diarrhea, constipation or black stools. Notes rectal bleeding which is very rare. Patient denies symptoms of heartburn, dysphagia, nausea, vomiting, change in appetite or weight. Denies recent change in bowel habits, constipation, diarrhea, black stools or rectal bleeding. Patient denies major cardiac or pulmonary problems, loud snoring or sleep apnea Denies taking NSAIDS or being on chronic anticoagulation. Pt admits to smoking 1 PPD x 30-40 yrs and quitted recently He denies ETOH abuse Family hx is positive for Esophageal cancer in his Dad. Patient denies major cardiac or pulmonary problems, loud snoring or sleep apnea Denies problems with anesthesia in the past. Denies being on chronic anticoagulation. Patient denies known family history of colon polyps, colon cancer or other GI malignancies. PAST EGD/COLONOSCOPY PAST GI HISTORY BY REVIEW OF MEDICAL RECORDS: 11/17/22 Pt was seen during hospitalizati on at [facility]: 72 YM seen at [facility] ED on 11/16/22 for an e levated blood sugar and right lower extremity rash for 3 to 4 days.? Patient denies any past medical history he does not take any medicine. Pt reports having progressive abdominal distension for the past 2-3 yrs. He also notes early satiety and intermittent rectal bleeding (attributes to hemorrhoids) Pt reports a remote hx of having Hep B which resolved spontaneously. He gives a hx of constipation alternating with diarrhea. 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 States he has been donating his money to the [employer] He gives a hx of wt loss of 20 lbs over the past 6 mths (from 160 to 140 lbs). Pt denies having a colonoscopy in the past. Plan 72 YM seen at [facility] ED on 11/16/22 for an e levated blood sugar and right lower extremity rash for 3 to 4 days.? Pt reports having progressive abdominal distension for the past 2-3 yrs. He also notes early satiety and intermittent rectal bleeding (attributes to hemorrhoids) Pt reports a remote hx of having ?Hep B which resolved spontaneously. He gives a hx of wt loss of 20 lbs over the past 6 mths (from 160 to 140 lbs). He denies ETOH abuse Abd CT scan showed?Cirrhosis with diffuse ascites and prominent collateral vesse ls likely varicose veins in the upper abdomen. MELD score is 9 Etiology of cirrhosis is unclear - possibly viral hepatitis, hemochromatosis, SWENSON, autoimmune hepatitis, celiac disease RECOMMENDATIONS: 1.? Check TIP, Anti dsDNA, AMA, ASMA, SP EP, celiac serologies - added to am labs 2.? US guided paracenteses and send asci tic fluid for cell count, albumin, protein and amylase 11/18/22 Labs showed positive Hep C ab Advise checking Hep C viral load, genotype and cryoglobulins to determine if pt has active Hep C and needs treatment. 11/16/22 ABD & PELVIC CT SCAN SHOWED: Liver, ducts and gallbladder: The liver is homogeneous in density, lobulated contour and normal size. There is diffuse ascites. No radiopaque gallstones or wall thickening seen. Spleen: Spleen is borderline normal measuring 12). There is a small accessory splenule inferior to the hilum GI tract: There is moderate scattered stool, diverticuli and gas seen throughout the colon without significant distention or diverticulitis. The small bowel loops is nondistended and appears unremarkable. There is diffuse ascites. Scratch that Lymphovascular structures: Abdominal aorta is normal caliber. There are small bilateral retroperitoneal shotty lymph nodes. Prominent collateral vessels are seen in the upper abdomen. Pelvis: The bladder is distended without radiopaque calculi or bladder wall thickening. There is slightly high density urine noted in the bladder measuring 26 Hounsfield units. There is diffuse pelvic ascites. IMPRESSION: ?No acute cardiopulmonary process seen in the chest. ?Cirrhosis with diffuse ascites and prominent collateral vessels likely varicose veins in the upper abdomen. ?Right renal cysts. 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 Do you presently have visiting nurse or other home services: No Patient Tobacco Use Status: Current everyday Tobacco user Tobacco use type: Cigarette Cigarette Packs Per Day: 0.5 Cigarettes Per Day: 10.0 Second Hand Smoke Exposure: Yes Use of substances other than those prescribed or required for medical reasons: No Are you DNR?: No Advance Directives: No Advance Directives Information Provided: Yes service: No Physical Exam Vital Signs: Last Vital Signs Pulse 102 H 12/13/22 09:03 BP 154/94 H 12/13/22 09:03 BMI result Body Mass Index 19.8 Assessment & Plan Assessment & Plan (1) Liver cirrhosis: Code(s): K74.60 - Unspecified cirrhosis of liver (2) Chronic hepatitis C virus genotype 1b infection: Code(s): B18.2 - Chronic viral hepatitis C Plan 72 YM admitted to [facility] in October, for an elevated blood sugar and right lower extremity rash for 3 to 4 days.? Pt reported progressive abdominal distension for the past 2-3 yrs, early satiety and intermittent rectal bleeding (which he attributed to hemorrhoids) He gave a hx of wt loss of 20 lbs over the past 6 mths (from 160 to 140 lbs). He denied ETOH abuse Abd CT scan showed Cirrhosis with diffuse ascites and prominent collateral vessels likely varicose veins in the upper abdomen. 11/18/22 Labs showed positive Hep C ab TIP, Anti dsDNA, AMA, ASMA, SPEP, celiac serologies were negative Iron studies were consistent with anemia of chronic disease. Hepatitis C genotype was 1b and cryoglobulins were negative MELD score was 9 REDUCING THE RISK OF LIVER PROGRESSION: patient was advised to completely avoid use of alcohol HCC SURVEILLANCE: the patient is at risk of developing hepatocellular carcinoma given the presence of cirrhosis and need 6 monthly imaging surveillance with either abdominal ultrasound (US) or multiphase cross-sectional imaging (CT or MRI). Last Abd CT in 10/2022 had shown no focal liver lesions suspicious of HCC. He will be scheduled for follow-up liver ultrasound in Apr, 2023 for ongoing surveillance. VACCINATIONS: Pt does not have serological evidence of prior exposure to or vaccination against hepatitis B. Order placed for Hep A ab(Ig G) Patient should also remain up-to-date with all age-appropriate vaccinations including vaccination against pneumococcus. Since pt does not have a PCP, he was advised to establish care with a PCP.. SURVEILLANCE FOR GASTROESOPHAGEAL VARICES: Schedule an EGD to screen for varices - scheduled on 02/28/23. QUESTION OF LIVER TRANSPLANTATION: As pt has a MELD score of 9, liver transplantation does not need to be considered at this time. Pt referred to the Hepatology clinic at [facility] for evaluation prior to initiating Hep C treatment (likely with Epclusa + Ribavarin) since he is at risk for worsening of liver disease with Hepatitis C treatment FU in 4 weeks Orders: Orders Zinc 12/13/22 K74.60 - Unspecified cirrhosis of liver Hepatitis A IgG 12/13/22 K74.60 - Unspecified cirrhosis of liver Cryoglobulin 12/13/22 K74.60 - Unspecified cirrhosis of liver Vitamin B12 and Folate 12/13/22 K74.60 - Unspecified cirrhosis of liver Vitamin D 25-OH Total 12/13/22 K74.60 - Unspecified cirrhosis of liver Comprehensive [place]. Panel Fast 12/13/22 K74.60 - Unspecified cirrhosis of liver Referrals Gastroenterology Referral K74.60 - Unspecified cirrhosis of liver, B18.2 - Chronic viral hepatitis C Medications: Changed From furosemide 20 mg PO DAILY 30 tabs 0RF To furosemide (Lasix) 20 mg PO DAILY 90 tabs 1RF 90 days From metformin 1,000 mg PO BIDWMEAL 60 tabs 0RF To metformin 1,000 mg PO BIDWMEAL 60 tabs 1RF From sitagliptin phosphate 50 mg PO DAILY 30 tabs 0RF To sitagliptin phosphate (Januvia) 50 mg PO DAILY 30 tabs 1RF 30 days From sulfamethoxazole-trimethoprim 800-160 mg 1 tab PO DAILY 30 tabs 0RF To sulfamethoxazole-trimethoprim 800-160 mg (Bactrim DS) 1 tab PO DAILY 90 tabs 1RF 90 days Coding Level of Care Code Est Pt Level 4 (42417) Diagnoses Liver cirrhosis K74.60 Chronic hepatitis C virus genotype 1b infection B18.2 Time Spent (min) 32
[2022-12-13 09:03] VITALS: BP 154/94; PULSE 102; BMI 19.8
== END 2022-12-13 10:16 | disposition home or self-care (01) ==
PROVIDERS: Visit Provider Internal Medicine Gastroenterology
DX: K74.60 Unspecified cirrhosis of liver (principal); B18.2 Chronic viral hepatitis C
CPT/HCPCS: 99214

== ENCOUNTER → 2022-12-13 08:57 | Outpatient (BNVA) | payer OTHER, SELFPAY | PROVIDERS: Visit Provider Internal Medicine Gastroenterology | DX: K74.60 Unspecified cirrhosis of liver (principal); B18.2 Chronic viral hepatitis C; Z80.0 Family history of malignant neoplasm of digestive organs; Z59.02 Unsheltered homelessness | CPT/HCPCS: 99212 ==

== ENCOUNTER 2023-02-28 12:10 | Day surgery (SDC) | payer OTHER, SELFPAY ==
[2023-02-26 11:48] VITALS: BMI 19.8
--- NOTE | 2023-02-27 12:04 | P.CONAN_ITS ---
Documented by User: Oriana Ponce NP 02/27/23 12:09 HPI - Anesthesia Eval Consult details Narrative: 72yo M for Upper Endoscopy Cirrhosis with thrombocytopenia s/p paracentesis 10/2022 of 120ml PMFSH Active Problems Active Problems: All Active Problems (Updated 02/26/23 @ 11:51 by Ashley Lorenzo RN) Chronic hepatitis C virus genotype 1b infection (Acute) Liver cirrhosis (Acute) Thrombocytopenia (Acute) Newly diagnosed diabetes (Acute) Cellulitis of right leg (Acute) Past Medical History Medical History (Updated 02/26/23 @ 11:51 by Ashley Lorenzo RN) Hepatitis B History of abdominal paracentesis Cellulitis Liver cirrhosis Diabetes Thrombocytopenia Hepatitis C Social History Social History Household Members: None 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, 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 Do you presently have visiting nurse or other home services: No Patient Tobacco Use Status: Current everyday Tobacco user Tobacco use type: Cigarette Cigarette Packs Per Day: 0.5 Cigarettes Per Day: 10.0 Second Hand Smoke Exposure: Yes Use of substances other than those prescribed or required for medical reasons: No Are you DNR?: No Advance Directives: No Advance Directives Information Provided: Yes service: No Meds Allergies Allergy/AdvReac Type Severity Reaction Status Date / Time No Known Allergies Allergy Verified 12/13/22 09:01 Home Medications Medication Instructions Recorded Confirmed Last Taken Type magnesium 02/28/23 02/27/23 History Exam Exam Date and Time: February 27, 2023 1204 Height,Weight and Vital Signs: Height 5 ft 10 in Weight 62.596 kg Pertinent Lab Results Pertinent Lab Results: Laboratory Tests 11/18/22 05:32 Sodium 140 Potassium 3.5 Chloride 107 Carbon Dioxide 28 BUN 12 Creatinine 0.74 Laboratory Tests 11/18/22 05:34 WBC 5.4 Hgb 12.8 L Hct 36.7 L Plt Count 93 L Assessment and Plan Assessment Anesthesia Assessment: Chart Reviewed Documented by User: Bar Mcmahon MD 02/28/23 15:37 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 Do you presently have visiting nurse or other home services: No Patient Tobacco Use Status: Current everyday Tobacco user Tobacco use type: Cigarette Cigarette Packs Per Day: 0.5 Cigarettes Per Day: 10.0 Second Hand Smoke Exposure: Yes Use of substances other than those prescribed or required for medical reasons: No Are you DNR?: No Advance Directives: No Advance Directives Information Provided: Yes service: No Meds Allergies Allergy/AdvReac Type Severity Reaction Status Date / Time No Known Allergies Allergy Verified 12/13/22 09:01 Home Medications Medication Instructions Recorded Confirmed Last Taken Type magnesium 02/28/23 02/27/23 History Exam Airway Mallampati Class: II TM Dist: >3cm Neck ROM: Full Denture: Upper Assessment and Plan Final Anesthetic Review Family History of Problems with Anesthesia: No History of Problems with Anesthesia: No NPO: Yes ASA Class: III Final Preanesthetic Review: No Changes in Pt Med Stat, Meds/Allgs Chart Reviewed, Consent Obtained/Reviewed and Anes Risks/Benef Reviewed Patient Risk: Intermediate Procedure Risk: Low Anesthetic Plan Anesthetic Plan: MAC: Disposition: Standard PACU
[2023-02-28 13:30] VITALS: BP 127/87; PULSE 83; RESP 16; TEMP 36.9; O2SAT 98
[2023-02-28 13:35] LABS: Glucose, Whole Blood 116 mg/dL (60-115)
[2023-02-28] MEDS: Lactated Ringers 1,000 ML 100 ML IVCONT (13:57)
--- NOTE | 2023-02-28 15:05 | P.HPSUR_ITS ---
Pre-Procedural Eval Section A Date of Service: 02/28/23 The patient is an INPATIENT: No The History & Physical has been completed within 30 days and I have reviewed it.: No Section B Chief Complaint: cirrhosis, screen for varices Relevant Family History (Specify if Yes): No Relevant Social History: Tobacco Use Present Medications: see Short Stay Collaborative assessment Medical History: Significant History (Hepatitis B History of abdominal paracentesis Cellulitis Liver cirrhosis Diabetes Thrombocytopenia Hepatitis C) History of Previous Operations: No relevant previous surgery Allergies: Allergies Allergy/AdvReac Type Severity Reaction Status Date / Time No Known Allergies Allergy Verified 12/13/22 09:01 Review of Systems Sugical H&P ROS: Negative: Constitution, Cardiovascular, Respiratory and Gastro intestinal Exam Surgical H&P Exam: Normal: Heart, Normal: Lungs, Normal: Extremities and Normal: Abdomen Plan Diagnosis/Plan: Unchanged I have reviewed the history and physical and performed a pertinent physical examination on my patient. No changes have occurred unless specified. Time Spent With Patient Time: Total time managing care of this patient today ____ minutes.
--- NOTE | 2023-02-28 15:07 | W.PM.OPN ---
Operative Note Operative Note Date of Service: 02/28/23 Narrative: FLEXIBLE TRANSORAL UPPER GASTROINTESTINAL ENDOSCOPY WITH BIOPSIES AND BAND LIGATION OF ESOPHAGEAL VARICES Pre-op diagnosis: cirrhosis - screen for varices Post-op diagnosis: esophageal varices, portal hypertensive gastropathy, duodenal bulb ulcers Endoscopist:? Malia Krueger MD Anesthesia:?MAC Consent: Indications for the procedure and potential complications of bleeding, perforation, reaction to medications and missed diagnosis were discussed with the patient and informed consent was obtained. Instrument: Olympus GIF H 190 mid size upper endoscope Monitoring: Vital signs and clinical assessment, continuous EKG monitoring, Pulse oximetry, Carbon Dioxide monitoring and blood pressure monitoring were done throughout the procedure. Procedure: The patient was placed in the left lateral decubitis position and pre-procedure medications were administered and a bite block was placed. The endoscope was inserted into the mouth and advanced under direct vision to the third part of duodenum. A careful inspection was made as the upper endoscope was withdrawn including a retroflexed examination of the proximal stomach; Findings and interventions are described below. Findings: Larynx: Normal Esophagus: GE junction at 40 cms. Grade 2 to 3 four column non-bleeding varices from 32 to 40 cms with red laura signs. Band ligation of varices was performed and five bands were placed with flattening of varices. Stomach: Moderate portal hypertensive gastropathy. Antral biopsies were obtained to check for H Pylori. A 2.5 cms non bleeding gastric varix in the fundus and grade 2 flap valve on retroflexed examination of the cardia. Duodenum: Two 5 to 8 mm superficial non bleeding ulcers in the bulb and normal descending duodenum Intervention: Biopsies as noted above Impression and Post Procedure Diagnosis: Endoscopy Findings: ESOPHAGUS: Grade 2 to 3 four column non-bleeding varices from 32 to 40 cms with red laura signs. Band ligation of varices was performed and five bands were placed with flattening of varices. STOMACH: Moderate portal hypertensive gastropathy. Antral biopsies were obtained to check for H Pylori. A 2.5 cms non bleeding gastric varix in the fundus and grade 2 flap valve on retroflexed examination of the cardia. DUODENUM: Two 5 to 8 mm superficial non bleeding ulcers in the bulb Plan: Await pathology results Patient has an appointment on 03/06/23 in the GI Clinic with Malia Krueger M.D.. Above findings were reviewed with the patient and Esophageal Varices and Esophageal Banding handouts were given in the discharge area. Pt was advised to start Omeprazole 20 mg daily for PUD and prophylaxis for banding ulcers. Repeat EGD in 3-4 months for FU of esophageal varices BIOPSIES SHOWED: Stomach, antrum, biopsy: Gastric antral mucosa within normal limits; negative for Helicobacter pylori, intestinal metaplasia and dysplasia
[2023-02-28 15:37] VITALS: BP 134/74; PULSE 85; RESP 8; TEMP 36.6; O2SAT 97
[2023-02-28 15:52] VITALS: BP 136/76; PULSE 76; RESP 14; O2SAT 99
[2023-02-28 16:07] VITALS: BP 136/75; PULSE 72; RESP 14; TEMP 36.7; O2SAT 99
== END 2023-02-28 16:15 | disposition home or self-care (01) ==
PROVIDERS: PCP Family Medicine; Visit Provider Internal Medicine Gastroenterology
PROC: 0DJ08ZZ Inspection of Upper Intestinal Tract, Via Natural or Artificial Opening Endoscopic (ICD-10-PCS; CPT 43235; principal; 2023-02-28 14:00)
DX: K74.60 Unspecified cirrhosis of liver (principal); B18.2 Chronic viral hepatitis C; B19.10 Unspecified viral hepatitis B without hepatic coma; K76.6 Portal hypertension; K31.89 Other diseases of stomach and duodenum; I85.10 Secondary esophageal varices without bleeding; I86.4 Gastric varices; K26.9 Duodenal ulcer, unspecified as acute or chronic, without hemorrhage or perforation; E11.9 Type 2 diabetes mellitus without complications; D69.6 Thrombocytopenia, unspecified; Z79.84 Long term (current) use of oral hypoglycemic drugs; Z79.899 Other long term (current) drug therapy; F17.210 Nicotine dependence, cigarettes, uncomplicated
CPT/HCPCS: 43244; 43239; 82947; 88305; 88342

== ENCOUNTER → 2023-02-28 12:10 | Outpatient (BNV) | payer OTHER, SELFPAY | PROVIDERS: PCP Family Medicine; Visit Provider Internal Medicine Gastroenterology | DX: K74.60 Unspecified cirrhosis of liver (principal); I85.00 Esophageal varices without bleeding; K76.6 Portal hypertension; I86.4 Gastric varices | CPT/HCPCS: 43244 ==

== ENCOUNTER 2023-03-06 13:15 | Outpatient (AMB) | payer OTHER, SELFPAY ==
--- NOTE | 2023-03-06 13:19 | A.OFFVIS_ITS ---
Vital Signs 03/06/23 13:24 Height 5 ft 10 in Weight 143 lb BMI 20.5 BP 145/81 H Blood Pressure Location Lt brachial Position Sitting Pulse 91 Intake Visit Reasons: S/P EGD; Dr. Krueger Intake Note: Patient follow up for Cirrhosis and EGD results. Patient denies any other GI issues. Managing Consultant Required: No Accompanied by: Self / Same As Patient Allergies No Known Allergies Allergy (Verified 01/15/24 13:13) Medication List - Last Reconciled 03/06/23 by Malia Krueger MD alcohol swabs 1 pad topical QIDACHS blood sugar diagnostic (FreeStyle Lite Strips) Test four times a day or as directed. blood-glucose meter (FreeStyle Lite Meter kit) As Directed cefuroxime axetil 500 mg PO BID furosemide (Lasix) 20 mg PO DAILY 90 days lancets (FreeStyle Lancets) Test four times a day or as directed. [magnesium ] metformin 1,000 mg PO BID omeprazole 20 mg PO .daily 60 days sitagliptin phosphate (Januvia) 50 mg PO DAILY sulfamethoxazole-trimethoprim 800-160 mg (Bactrim DS) 1 tab PO DAILY 90 days HPI HPI S/P EGD; Dr. Krueger: Details: GI clinic visit for this 72 YM for follow-up after recent hospitalization for chronic hepatitis C and cirrhosis complicated by ascites and SBP MELD score was 9 LABS IN [facility] : Reviewed IMAGING STUDIES: 10/[address] SCAN SHOWED: No acute cardiopulmonary process seen in the chest. Cirrhosis with diffuse ascites and prominent collateral vessels likely varicose veins in the upper abdomen. Right renal cysts. ENDOSCOPIC STUDIES: 02/28/23 EGD SHOWED: ESOPHAGUS: Grade 2 to 3 four column non-bleeding varices from 32 to 40 cms with red laura signs. Band ligation of varices was performed and five bands were placed with flattening of varices. STOMACH: Moderate portal hypertensive gastropathy. Antral biopsies were obtained to check for H Pylori. A 2.5 cms non bleeding gastric varix in the fundus and grade 2 flap valve on retroflexed examination of the cardia. DUODENUM: Two 5 to 8 mm superficial non bleeding ulcers in the bulb Plan: Above findings were reviewed with the patient and Esophageal Varices and Esophageal Banding handouts were given in the discharge area. Pt was advised to start Omeprazole 20 mg daily for PUD and prophylaxis for banding ulcers. Repeat EGD in 3-4 months for FU of esophageal varices BIOPSIES SHOWED: Stomach, antrum, biopsy: Gastric antral mucosa within normal limits; negative for Helicobacter pylori, intestinal metaplasia and dysplasia TODAY'S VISIT: EGD results reviewed with the patient. Noted some throat pain after the procedure which resolved after 1 day. Denies abdominal distension PAST VISITS: Has been doing ok since discharged Had Hep B in the mid 90's - from drinking out of a very dirty glass . Unsure how he acquired Hep C - denies IVDA or blood transfusion or exposure to anyone with Hep C. Appetite is good and abd distension has improved. Denies diarrhea, constipation or black stools. Notes rectal bleeding which is very rare. Patient denies symptoms of heartburn, dysphagia, nausea, vomiting, change in rolanda etite or weight. Denies recent change in bowel habits, constipation, diarrhea, black stools or rectal bleeding. Patient denies major cardiac or pulmonary problems, loud snoring or sleep apnea Denies taking NSAIDS or being on chronic anticoagulation. Pt admits to smoking 1 PPD x 30-40 yrs and quitted recently He denies ETOH abuse Family hx is positive for Esophageal cancer in his Dad. Patient denies major cardiac or pulmonary problems, loud snoring or sleep apnea Denies problems with anesthesia in the past. Denies being on chronic anticoagulation. Patient denies known family history of colon polyps, colon cancer or other GI malignancies. PAST GI HISTORY BY REVIEW OF MEDICAL RECORDS: 11/17/22 Pt was seen during hospitalization at [facility]: 72 YM seen at [facility] ED on 11/16/22 for an elevated blood sugar and right lower extremity rash for 3 to 4 days.?Patient denies any past medical history he does not take any medicine. Pt reports having progressive abdominal distension for the past 2-3 yrs. He also notes early satiety and intermittent rectal bleeding (attributes to hemorrhoids) Pt reports a remote hx of having Hep B which resolved spontaneously. He gives a hx of constipation alternating with diarrhea. 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 States he has been donating his money to the [employer] He gives a hx of wt loss of 20 lbs over the past 6 mths (from 160 to 140 lbs). Pt denies having a colonoscopy in the past. Plan 72 YM seen at [facility] ED on 11/16/22 for an elevated blood sugar and right lower extremity rash for 3 to 4 days.?Pt reports having progressive abdominal distension for the past 2-3 yrs. He also notes early satiety and intermittent rectal bleeding (attributes to hemorrhoids) Pt reports a remote hx of having ?Hep B which resolved spontaneously. He gives a hx of wt loss of 20 lbs over the past 6 mths (from 160 to 140 lbs). He denies ETOH abuse Abd CT scan showed?Cirrhosis with diffuse ascites and prominent collateral vessels likely varicose veins in the upper abdomen. MELD score is 9 Etiology of cirrhosis is unclear - possibly viral hepatitis, hemochromatosis, SWENSON, autoimmune hepatitis, celiac disease RECOMMENDATIONS: 1.? Check TIP, Anti dsDNA, AMA, ASMA, SPEP, celiac serologies - added to am labs 2.? US guided paracenteses and send ascitic fluid for cell count, albumin, protein and amylase 11/18/22 Labs showed positive Hep C abAdvise checking Hep C viral load, genotype and cryoglobulins to determine if pt has active Hep C and needs treatment. 11/16/22 ABD & PELVIC CT SCAN SHOWED:Liver, ducts and gallbladder: The liver is homogeneous in density, lobulated contour and normal size. There is diffuse ascites. No radiopaque gallstones or wall thickening seen. Spleen: Spleen is borderline normal measuring 12). There is a small accessory splenule inferior to the hilum GI tract: There is moderate scattered stool, diverticuli and gas seen throughout the colon without significant distention or diverticulitis. The small bowel loops is nondistended and appears unremarkable. There is diffuse ascites. Scratch that Lymphovascular structures: Abdominal aorta is normal caliber. There are small bilateral retroperitoneal shotty lymph nodes. Prominent collateral vessels are seen in the upper abdomen. Pelvis: The bladder is distended without radiopaque calculi or bladder wall thickening. There is slightly high density urine noted in the bladder measuring 26 Hounsfield units. There is diffuse pelvic ascites. IMPRESSION: ?No acute cardiopulmonary process seen in the chest. ?Cirrhosis with diffuse ascites and prominent collateral vessels likely varicose veins in the upper abdomen. 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 If needs a place will stay with sister. 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 Cognitive needs: No Hearing needs: No Vision needs: No Physical Exam Vital Signs: Last Vital Signs Pulse 91 03/06/23 13:24 BP 145/81 H 03/06/23 13:24 BMI result Body Mass Index 20.5 Const General: no acute distress Nutritional Appearance: average body habitus Orientation/consciousness: patient oriented x3 Limitations: no limitations HEENT Head: Yes normal to inspection Ears: hearing grossly normal bilaterally Mouth: Normal oral and palatal mucosa present Teeth and gingiva: poor dentition Eyes Sclerae: sclerae normal Pupils: Equal, round and reactive pupils present Neck Neck: Yes normal visual inspection Chest Chest palpation & inspection: normal inspection of the chest Resp Effort & Inspection: normal respiratory effort Auscultation: clear to auscultation bilaterally Cardio Palpation: normal PMI Rate: regular rate Rhythm: regular rhythm Heart sounds: S1 normal heart sound present, S2 normal heart sound present and no murmurs GI Inspection: Yes distended (due to ascites) Palpation (GI): Soft to palpation, nontender and No hepatosplenomegaly present Auscultation: normal bowel sounds Rectal Exam - Male: Yes deferred Skin General skin exam: no rashes or lesions noted and spider nevi Neuro General: patient oriented x3, gait normal and moves all extremities Cranial nerves: Yes Equal, round and reactive pupils present Psych Appearance: grossly normal Mental Status: mental status grossly normal Assessment & Plan Assessment & Plan (1) Peptic ulcer disease: Code(s): K27.9 - Peptic ulcer, site unspecified, unspecified as acute or chronic, without hemorrhage or perforation Category: Medical (2) Chronic hepatitis C virus genotype 1b infection: Code(s): B18.2 - Chronic viral hepatitis C Category: Medical (3) Liver cirrhosis: Code(s): K74.60 - Unspecified cirrhosis of liver Category: Medical (4) Thrombocytopenia: Code(s): D69.6 - Thrombocytopenia, unspecified Category: Medical (5) Esophageal and gastric varices: Code(s): I85.00 - Esophageal varices without bleeding; I86.4 - Gastric varices Category: Medical Plan 72 YM admitted to [facility] in October, for an elevated blood sugar and right lower extremity rash for 3 to 4 days.? Pt reported progressive abdominal distension for the past 2-3 yrs, early satiety and intermittent rectal bleeding (which he attributed to hemorrhoids) He gave a hx of wt loss of 20 lbs over the past 6 mths (from 160 to 140 lbs). He denied ETOH abuse Abd CT scan showed Cirrhosis with diffuse ascites and prominent collateral vessels likely varicose veins in the upper abdomen. 11/18/22 Labs showed positive Hep C ab TIP, Anti dsDNA, AMA, ASMA, SPEP, celiac serologies were negative Iron studies were consistent with anemia of chronic disease. Hepatitis C genotype was 1b and cryoglobulins were negative MELD score was 9 REDUCING THE RISK OF LIVER PROGRESSION: patient was advised to completely avoid use of alcohol HCC SURVEILLANCE: the patient is at risk of developing hepatocellular carcinoma given the presence of cirrhosis and need 6 monthly imaging surveillance with either abdominal ultrasound (US) or multiphase cross-sectional imaging (CT or MRI). Last Abd CT in 10/2022 had shown no focal liver lesions suspicious of HCC. He will be scheduled for follow-up liver ultrasound in Apr, 2023 for ongoing surveillance. VACCINATIONS: Pt does not have serological evidence of prior exposure to or vaccination against hepatitis B. Order placed for Hep A ab(Ig G) Patient should also remain up-to-date with all age-appropriate vaccinations including vaccination against pneumococcus. Since pt does not have a PCP, he was advised to establish care with a PCP.. SURVEILLANCE FOR GASTROESOPHAGEAL VARICES: Schedule an EGD to screen for varices - scheduled on 02/28/23. QUESTION OF LIVER TRANSPLANTATION: As pt has a MELD score of 8, liver transplantation does not need to be considered at this time. Pt referred to the Hepatology clinic at [facility] for evaluation prior to initiating Hep C treatment (likely with Epclusa + Ribavarin) since he is at risk for worsening of liver disease with Hepatitis C treatment FU in 3 months ADDENDUM: Labs showed an increase is LFTs - elevated AST and ALT Pt called and labs reviewed - increase LFT likely hepatotoxicity related to Bactrim Pt advised to stop bactrim and have repeat LFTs checked on 03/11 or 03/12. Orders: Orders Prothrombin Time INR 03/06/23 K74.60 - Unspecified cirrhosis of liver Complete Blood Count Auto Diff 03/06/23 K74.60 - Unspecified cirrhosis of liver Comprehensive Met. Panel 03/06/23 K74.60 - Unspecified cirrhosis of liver Liver Panel 03/11/23 R79.89 - Other specified abnormal findings of blood chemistry Referrals Gastroenterology Referral I85.00 - Esophageal varices without bleeding, I86.4 - Gastric varices Medications: New carvedilol must administer with a meal/food 3.125 mg PO Q12H 60 tabs 3RF 30 days I85.00 - Esophageal varices without bleeding, I86.4 - Gastric varices Discontinued cefuroxime axetil Discontinued Reason: Patient Completed Course 500 mg PO BID 6 tabs 0RF Coding Level of Care Code Est Pt Level 4 (19562) Diagnoses Peptic ulcer disease K27.9 Chronic hepatitis C virus genotype 1b infection B18.2 Liver cirrhosis K74.60 Thrombocytopenia D69.6 Esophageal and gastric varices I85.00; I86.4 Time Spent (min) 22
[2023-03-06 13:24] VITALS: BP 145/81; PULSE 91; BMI 20.5
== END 2023-03-06 15:39 | disposition home or self-care (01) ==
PROVIDERS: PCP Family Medicine; Visit Provider Internal Medicine Gastroenterology
DX: K27.9 Peptic ulcer, site unspecified, unspecified as acute or chronic, without hemorrhage or perforation (principal); B18.2 Chronic viral hepatitis C; K74.60 Unspecified cirrhosis of liver; D69.6 Thrombocytopenia, unspecified; I85.00 Esophageal varices without bleeding; I86.4 Gastric varices
CPT/HCPCS: 99499

== ENCOUNTER 2023-03-06 13:15 | Outpatient (REF) | payer OTHER, SELFPAY ==
[2023-03-06 15:17] LABS: Basophils Absolute Auto 0.1 X10*3/uL (0.0-0.2); Eosinophils Absolute Auto 0.1 X10*3/uL (0.0-0.4); Eosinophils Percent Auto 1.8 % (0-4); Hematocrit 40.9 % (42.0-52.0); Imm Gran Abs Auto 0.01 X10*3/uL (0.00-0.03); Imm Gran Pct Auto 0.2 % (0.0-0.4); Lymphocytes Absolute Auto 1.9 X10*3/uL (1.2-4.9); Lymphocytes Percent Auto 30.7 % (20-40); MANUAL DIFF FLAG NO; Mean Corpuscular HGB Conc 34.2 g/dl (31.0-36.0); Mean Corpuscular Hemoglobin 34.3 pg (27.0-33.0); Mean Corpuscular Volume 100.2 fL (80.0-98.0); Mean Platelet Volume 10.3 fL (9.4-12.4); Monocytes Absolute Auto 0.6 X10*3/uL (0.1-1.2); Monocytes Percent Auto 9.4 % (2-11); Neutrophils Absolute Auto 3.5 x10*3/uL (2.0-8.3); Neutrophils Percent Auto 56.9 % (45-73); Platelet Count 110 X10*3/uL (160-400); Red Blood Count 4.08 X10*6/uL (4.60-5.80); White Blood Count 6.1 X10*3/uL (4.8-10.8)
[2023-03-06 15:18] LABS: INTERNATIONAL NORM RATIO 1.1 (0.9-1.1); Prothrombin Time 12.8 SEC (11.1-13.3)
[2023-03-06 15:50] LABS: Alanine Aminotransferase 373 U/L (0-40); Alkaline Phosphatase 199 U/L (39-117); Anion Gap 15 (12-20); Aspartate Amino Transferase 292 U/L (5-37); Bilirubin Total 1.1 mg/dL (0.0-1.0); Blood Urea Nitrogen 14 mg/dL (9-16); Calcium 9.3 mg/dL (8.4-10.2); Carbon Dioxide 26 mmol/L (22-29); Chloride 109 mmol/L (96-108); Estimated Glomerular Filt Rate > 60; Glucose Fasting 69 mg/dL (60-99); Glucose Random 68 mg/dL (60-115); Potassium 3.9 mmol/L (3.3-5.1); Sodium 146 mmol/L (135-145)
[2023-03-06 16:04] LABS: Vitamin D 25-OH Total 17.5 ng/mL (>30)
[2023-03-06 16:17] LABS: Folate 10.7 ng/mL (> or = 4.0); Vitamin B12 774 pg/mL (200-900)
[2023-03-07 08:36] LABS: Hepatitis A Antibody IgG Nonreactive (Nonreactive); ~Hepatitis A Antibody IgG 0.52 S/CO (0.00-0.99)
[2023-03-08 16:13] LABS: Zinc 68 mcg/dL (60-130)
== END 2023-03-06 13:16 | disposition home or self-care (01) ==
LOC: HO.LAB 13:15
PROVIDERS: PCP Family Medicine; Visit Provider Internal Medicine Gastroenterology
DX: K74.60 Unspecified cirrhosis of liver (principal); K27.9 Peptic ulcer, site unspecified, unspecified as acute or chronic, without hemorrhage or perforation; B18.2 Chronic viral hepatitis C; D69.6 Thrombocytopenia, unspecified; I85.00 Esophageal varices without bleeding; I86.4 Gastric varices; R79.89 Other specified abnormal findings of blood chemistry; Z79.899 Other long term (current) drug therapy
CPT/HCPCS: 36415; 80053; 82306; 82607; 82746; 84630; 85025; 85610; 86708

== ENCOUNTER 2023-03-11 11:33 | Outpatient (REF) | payer OTHER, SELFPAY ==
[2023-03-11 14:09] LABS: Alanine Aminotransferase 309 U/L (0-40); Albumin Level 3.4 g/dL (3.5-5.0); Alkaline Phosphatase 210 U/L (39-117); Aspartate Amino Transferase 228 U/L (5-37); Bilirubin Direct 0.7 mg/dL (0.0-0.5); Bilirubin Total 1.5 mg/dL (0.0-1.0); Total Protein 6.9 g/dL (6.5-8.0)
== END 2023-03-11 11:34 | disposition home or self-care (01) ==
LOC: HO.HMGCLDS 11:33
PROVIDERS: PCP Family Medicine; Visit Provider Internal Medicine Gastroenterology
DX: R79.89 Other specified abnormal findings of blood chemistry (principal)
CPT/HCPCS: 36415; 80076

== ENCOUNTER 2023-05-01 09:38 | Outpatient (AMB) | payer OTHER, SELFPAY ==
--- NOTE | 2023-05-01 09:41 | MHC.PC.OV ---
Vital Signs 05/01/23 09:42 Height 5 ft 10 in Weight 154 lb BMI 22.1 BP 138/78 Blood Pressure Location Rt brachial Position Sitting Pulse 73 Pulse Source Pulse Oximeter Pulse Oximetry (%) 97 Oxygen Delivery Method Room Air Intake Visit Reasons: New patient- est care Intake Note: Patient is here as a new patient, needs a primary care doctor. Allergies No Known Allergies Allergy (Verified 05/01/23 09:43) Tobacco use date assessed: 05/01/23 Fall risk assessment: No Falls in past year Last assessed Fall Risk: 05/01/23 Dental Screening Dental Screen Date: 05/01/23 Did you have a dental visit in the last 12 months?: Yes Did you have a dental problem in the last 6 months where you did not have access to dental care?: No Was dental information given to patient?: Patient has dentist HPI New patient- est care HPI Details New patient Prior PCP:?No PCP Acute issue(s): Est Care PMHx: Diabetes, Hep C. Cirrhosis. SurgHx: None FHx: Father: Spine Cancer. 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 EtOH none. No drugs. 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 Cognitive needs: No Hearing needs: No Vision needs: No Questionnaire PHQ-9 Over the last 2 weeks, how often have you been bothered by any of the following problems? 1. Little interest or pleasure in doing things: not at all 2. Feeling down, depressed, or hopeless: not at all 3. Trouble falling or staying asleep, or sleeping too much: not at all 4. Feeling tired or having little energy: not at all 5. Poor appetite or overeating: not at all 6. Feeling bad about yourself - or that you are a failure or have let yourself or your family down: not at all 7. Trouble concentrating on things, such as reading the newspaper or watching television: not at all 8. Moving or speaking so slowly that other people could have noticed. Or the opposite - being so fidgety or restless that you have been moving around a lot more than usual: not at all 9. Thoughts that you would be better off or of hurting yourself in some way: not at all Total score: 0 Source: Developed by Drs. John Guy, Dana Izquierdo, Cesario Live and colleagues, with an educational cristian from [employer]. Thrive Questionnaire Date Thrive assessed: 11/18/22 I am a: Patient What is your living situation today?: I have a steady place to live Within the past 12 months, did the food you bought not last and you didn't have the money to get more?: Never true Within the past 12 months, did you worry whether your food would run out before you got money to buy more?: Never true Do you have trouble paying for medicines?: No Do you have trouble getting transportation to medical appointments?: No Do you have trouble paying your heating and electricity bill?: No Do you have trouble taking care of your child, family member or friend?: No Do you have trouble with day-to-day activities such as bathing, preparing meals, shopping, managing finances, etc.?: No Are you currently unemployed and looking for a job?: No Are you interested in more education?: No AUDIT C Alcohol Use Questionnaire (AUDIT-C) 1. How often do you have a drink containing alcohol?: Never 3. How often do you have six or more drinks on one occasion?: Never Total Score: 0 JOHN-7 AMB Questionnaire JOHN-7 Date JOHN - 7 assessed: 05/01/23 Feeling nervous, anxious, or on edge: 0 = Not at all Not being able to stop or control worryin = Not at all Worrying too much about different things: 0 = Not at all Trouble relaxin = Not at all Being so restless that it is hard to sit still: 0 = Not at all Becoming easily annoyed or irritable: 0 = Not at all Feeling afraid as if something awful might happen: 0 = Not at all Total JOHN-7 score (0-4 normal; 5-9 mild; 10-14 moderate; 15-21 severe): 0 Source: Developed by Drs. John Guy, Dana Izquierdo, Cesario Live and colleagues, with an educational cristian from [employer]. Review of Systems Const Denies chills, Denies fatigue, Denies fever(s), Denies headache(s) and Denies weakness ENT Denies dizziness and Denies headache(s) Card Denies chest pain, Denies lightheadedness, Denies dyspnea and Denies other (Palpitations) Resp Denies cough, Denies dyspnea, Denies wheezing and Denies other ( shortness of breath) Musc Denies numbness and Denies tingling Neuro Denies dizziness, Denies headache(s), Denies numbness, Denies tingling, Denies paresthesias and Denies weakness Psych Denies anxiety and Denies depression Endo Denies fatigue Aller/Immun Denies wheezing Physical exam (Primary Care) Vital Signs: Last Vital Signs Pulse 73 05/01/23 09:42 BP 138/78 05/01/23 09:42 Pulse Ox 97 05/01/23 09:42 Oxygen Delivery Method Room Air 05/01/23 09:42 BMI result Body Mass Index 22.1 Tobacco/Smoking Status: Tobacco use Status Tobacco use date assessed 05/01/23 05/01/23 09:45 Patient Tobacco Use Status Current everyday Tobacco 05/01/23 09:45 Tobacco use type Cigarette 05/01/23 09:45 e-Cigarette/Vaping Use Never Used 05/01/23 09:45 PHQ-9: PHQ-9 Score PHQ-9: Total score 0 05/01/23 09:55 Thrive Assessment: Date of Thrive Assessment Date Thrive assessed 11/18/22 05/01/23 09:45 Const General: no acute distress and well developed Nutritional Appearance: well nourished Orientation/consciousness: patient oriented x3 HENMT Head: Yes normocephalic and Yes atraumatic Eyes General: appearance normal, both eyes and all related structures Pupils: Equal, round and reactive pupils present EOM: EOMs intact bilaterally Resp Effort & Inspection: normal respiratory effort Auscultation: clear to auscultation bilaterally Cardio Rate: regular rate Rhythm: regular rhythm Heart sounds: S1 normal heart sound present, S2 normal heart sound present, no gallops, no murmurs and no rubs Neuro General: patient oriented x3 and gait normal Cranial nerves: Yes Equal, round and reactive pupils present Psych Affect: normal affect Assessment and Plan Assessment & Plan (1) Diabetes: Code(s): E11.9 - Type 2 diabetes mellitus without complications Plan: Patient?is?on?Januvia?and?metformin Check?A1c?and?fasting?blood?sugar (2) Hepatitis C: Code(s): B19.20 - Unspecified viral hepatitis C without hepatic coma Plan: Now?followed?by? (3) Liver cirrhosis: Code(s): K74.60 - Unspecified cirrhosis of liver Plan: As?above,?followed?by?Dr.?Malik Maria (4) Smoker: Code(s): F17.200 - Nicotine dependence, unspecified, uncomplicated Plan: Patient?is?weaning?down?and?I?encouraged?this (5) Laboratory exam ordered as part of routine general medical examination: Code(s): Z00.00 - Encounter for general adult medical examination without abnormal findings Plan: Check?lab Orders: Orders Complete Blood Count Auto Diff Today Z00.00 - Encounter for general adult medical examination without abnormal findings Lipid Panel Today Z00.00 - Encounter for general adult medical examination without abnormal findings Microalbumin, Random (w Creat) Today I10 - Essential (primary) hypertension UA and rflx microscopic Today Z00.00 - Encounter for general adult medical examination without abnormal findings TSH reflex Free T4 Today Z00.00 - Encounter for general adult medical examination without abnormal findings Vitamin B12 and Folate Today E53.8 - Deficiency of other specified B group vitamins Comprehensive [place]. Panel Fast Today Z00.00 - Encounter for general adult medical examination without abnormal findings Prostate Specific Antigen Scr Today Z12.5 - Encounter for screening for malignant neoplasm of prostate Hemoglobin A1c Today R73.01 - Impaired fasting glucose Coding Level of Care Code New Pt Level 3 (63621) Diagnoses Diabetes E11.9 Hepatitis C B19.20 Liver cirrhosis K74.60 Smoker F17.200 Laboratory exam ordered as part of routine general medical examination Z00.00
[2023-05-01 09:42] VITALS: BP 138/78; PULSE 73; O2SAT 97; BMI 22.1
== END 2023-05-01 10:19 | disposition home or self-care (01) ==
PROVIDERS: PCP Family Medicine; Visit Provider Family Medicine
DX: E11.9 Type 2 diabetes mellitus without complications (principal); B19.20 Unspecified viral hepatitis C without hepatic coma; K74.60 Unspecified cirrhosis of liver; F17.200 Nicotine dependence, unspecified, uncomplicated; Z00.00 Encounter for general adult medical examination without abnormal findings
CPT/HCPCS: 99203

== ENCOUNTER 2023-08-14 08:19 | Outpatient (REF) | payer OTHER, SELFPAY ==
[2023-08-14 10:20] LABS: MANUAL DIFF FLAG NO
[2023-08-14 10:42] LABS: INTERNATIONAL NORM RATIO 1.3 (0.9-1.1); Prothrombin Time 15.4 SEC (11.1-13.3)
[2023-08-14 10:43] LABS: Basophils Absolute Auto 0.1 X10*3/uL (0.0-0.2); Basophils Percent Auto 0.9 % (0-2); Eosinophils Absolute Auto 0.5 X10*3/uL (0.0-0.4); Eosinophils Percent Auto 5.2 % (0-4); Hematocrit 38.9 % (42.0-52.0); Hemoglobin 13.4 g/dl (14.0-18.0); Imm Gran Abs Auto 0.03 X10*3/uL (0.00-0.03); Imm Gran Pct Auto 0.3 % (0.0-0.4); Lymphocytes Absolute Auto 3.3 X10*3/uL (1.2-4.9); Mean Corpuscular HGB Conc 34.4 g/dl (31.0-36.0); Mean Corpuscular Hemoglobin 35.6 pg (27.0-33.0); Mean Corpuscular Volume 103.5 fL (80.0-98.0); Mean Platelet Volume 10.1 fL (9.4-12.4); Monocytes Absolute Auto 0.9 X10*3/uL (0.1-1.2); Monocytes Percent Auto 10.6 % (2-11); Neutrophils Absolute Auto 4.1 x10*3/uL (2.0-8.3); Red Blood Count 3.76 X10*6/uL (4.60-5.80); Red Cell Distribution Width 14.9 % (11.0-16.0); White Blood Count 8.8 X10*3/uL (4.8-10.8)
[2023-08-14 10:46] LABS: Platelet Count 91 X10*3/uL (160-400)
[2023-08-14 11:23] LABS: Alanine Aminotransferase 94 U/L (0-40); Alkaline Phosphatase 165 U/L (39-117); Anion Gap 10 (12-20); Aspartate Amino Transferase 120 U/L (5-37); Bilirubin Total 2.2 mg/dL (0.0-1.0); Blood Urea Nitrogen 11 mg/dL (9-16); Carbon Dioxide 28 mmol/L (22-29); Chloride 110 mmol/L (96-108); Estimated Glomerular Filt Rate > 60; Glucose Random 133 mg/dL (60-115); Potassium 4.8 mmol/L (3.3-5.1); Sodium 143 mmol/L (135-145); Total Protein 7.4 g/dL (6.5-8.0)
== END 2023-08-14 08:20 | disposition home or self-care (01) ==
LOC: HO.LAB 08:19
PROVIDERS: PCP Family Medicine; Visit Provider Internal Medicine Gastroenterology
DX: K74.60 Unspecified cirrhosis of liver (principal); B18.2 Chronic viral hepatitis C; K27.9 Peptic ulcer, site unspecified, unspecified as acute or chronic, without hemorrhage or perforation; I85.00 Esophageal varices without bleeding; I86.4 Gastric varices; R79.89 Other specified abnormal findings of blood chemistry; Z23 Encounter for immunization; Z20.828 Contact with and (suspected) exposure to other viral communicable diseases; Z79.899 Other long term (current) drug therapy
CPT/HCPCS: 36415; 80053; 85025; 85610; 90471; 90632; 90746; 99212

== ENCOUNTER 2023-08-14 08:19 | Outpatient (AMB) | payer OTHER, SELFPAY ==
--- NOTE | 2023-08-14 08:31 | A.OFFVIS_ITS ---
Vital Signs 08/14/23 08:33 Height 5 ft 10 in Weight 144 lb BMI 20.7 BP 123/62 Blood Pressure Location Lt brachial Position Sitting Pulse 69 Intake Visit Reasons: Cirrhosis HCV Intake Note: Patient follow up for Cirrhosis/HCV and lab results Patient cc: diarrhea on and off, abdominal bloating. Denies any other GI issues. Hydrator Operator Required: No Accompanied by: Self / Same As Patient Allergies No Known Allergies Allergy (Verified 08/14/23 08:31) Medication List - Last Reconciled 08/14/23 by Malia Krueger MD alcohol swabs 1 pad topical QIDACHS blood sugar diagnostic (FreeStyle Lite Strips) Test four times a day or as directed. blood-glucose meter (FreeStyle Lite Meter kit) As Directed carvedilol 3.125 mg PO Q12H 30 days cholecalciferol (vitamin D3) 50 mcg PO DAILY 30 days furosemide 20 mg PO DAILY 90 days lancets (FreeStyle Lancets) Test four times a day or as directed. [magnesium ] metformin 1,000 mg PO BID 30 days omeprazole 20 mg PO .daily 60 days sitagliptin phosphate (Januvia) 50 mg PO DAILY 30 days HPI HPI Cirrhosis HCV: Details: GI clinic visit for this 73 YM for follow-up after recent hospitalization for chronic hepatitis C and cirrhosis complicated by ascites and SBP MELD score was 9 LABS IN [facility] : Reviewed IMAGING STUDIES: 10/[address] SCAN SHOWED: No acute cardiopulmonary process seen in the chest. Cirrhosis with diffuse ascites and prominent collateral vessels likely varicose veins in the upper abdomen. Right renal cysts. ENDOSCOPIC STUDIES: 02/28/23 EGD SHOWED: ESOPHAGUS: Grade 2 to 3 four column non-bleeding varices from 32 to 40 cms with red laura signs. Band ligation of varices was performed and five bands were placed with flattening of varices. STOMACH: Moderate portal hypertensive gastropathy. Antral biopsies were obtained to check for H Pylori. A 2.5 cms non bleeding gastric varix in the fundus and grade 2 flap valve on retroflexed examination of the cardia. DUODENUM: Two 5 to 8 mm superficial non bleeding ulcers in the bulb Plan: Above findings were reviewed with the patient and Esophageal Varices and Esophageal Banding handouts were given in the discharge area. Pt was advised to start Omeprazole 20 mg daily for PUD and prophylaxis for banding ulcers. Repeat EGD in 3-4 months for FU of esophageal varices BIOPSIES SHOWED: Stomach, antrum, biopsy: Gastric antral mucosa within normal limits; negative for Helicobacter pylori, intestinal metaplasia and dysplasia TODAY'S VISIT: Patient cc: diarrhea on and off, abdominal bloating. Denies any other GI issues. Has not been seen at [facility] since he has been on the road. Denies ETOH abuse. EGD results reviewed with the patient. Noted some throat pain after the procedure which resolved after 1 day. Denies abdominal distension PAST VISITS: Has been doing ok since discharged Had Hep B in the mid s - from drinking out of a very dirty glass . Unsure how he acquired Hep C - denies IVDA or blood transfusion or exposure to anyone with Hep C. Appetite is good and abd distension has improved. Denies diarrhea, constipation or black stools. Notes rectal bleeding which is very rare. Patient denies symptoms of heartburn, dysphagia, nausea, vomiting, change in appetite or weight. Denies recent change in bowel habits, constipation, diarrhea, black stools or rectal bleeding. Patient denies major cardiac or pulmonary problems, loud snoring or sleep apnea Denies taking NSAIDS or being on chronic anticoagulation. Pt admits to smoking 1 PPD x 30-40 yrs and quitted recently He denies ETOH abuse Family hx is positive for Esophageal cancer in his Dad. Patient denies major cardiac or pulmonary problems, loud snoring or sleep apnea Denies problems with anesthesia in the past. Denies being on chronic anticoagulation. Patient denies known family history of colon polyps, colon cancer or other GI malignancies. PAST GI HISTORY BY REVIEW OF MEDICAL RECORDS: 11/17/22 Pt was seen during hospitalization at [facility]: 72 YM seen at [facility] ED on 11/16/22 for an elevated blood sugar and right lower extremity rash for 3 to 4 days.?Patient denies any past medical history he does not take any medicine.Pt reports having progressive abdominal distension for the past 2-3 yrs. He also notes early satiety and intermittent rectal bleeding (attributes to hemorrhoids) Pt reports a remote hx of having Hep B which resolved spontaneously. He gives a hx of constipation alternating with diarrhea. 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 States he has been donating his money to the [employer] He gives a hx of wt loss of 20 lbs over the past 6 mths (from 160 to 140 lbs). Pt denies having a colonoscopy in the past. Plan 72 YM seen at [facility] ED on 11/16/22 for an elevated blood sugar and right lower extremity rash for 3 to 4 days.?Pt reports having progressive abdominal distension for the past 2-3 yrs.He also notes early satiety and intermittent rectal bleeding (attributes to hemorrhoids) Pt reports a remote hx of having ?Hep B which resolved spontaneously. He gives a hx of wt loss of 20 lbs over the past 6 mths (from 160 to 140 lbs). He denies ETOH abuse Abd CT scan showed?Cirrhosis with diffuse ascites and prominent collateral vessels likely varicose veins in the upper abdomen. MELD score is 9 Etiology of cirrhosis is unclear - possibly viral hepatitis, hemochromatosis, SWENSON, autoimmune hepatitis, celiac disease RECOMMENDATIONS: 1.? Check TIP, Anti dsDNA, AMA, ASMA, SPEP, celiac serologies - added to am labs 2.? US guided paracenteses and send ascitic fluid for cell count, albumin, protein and amylase 11/18/22 Labs showed positive Hep C abAdvise checking Hep C viral load, genotype and cryoglobulins to determine if pt has active Hep C and needs treatment. 11/16/22 ABD & PELVIC CT SCAN SHOWED:Liver, ducts and gallbladder: The liver is homogeneous in density,lobulated contour and normal size. There is diffuse ascites. No radiopaque gallstones or wall thickening seen. Spleen: Spleen is borderline normal measuring 12). There is a small accessory splenule inferior to the hilum GI tract: There is moderate scattered stool, diverticuli and gas seen throughout the colon without significant distention or diverticulitis. The small bowel loops is nondistended and appears unremarkable. There is diffuse ascites. Scratch that Lymphovascular structures: Abdominal aorta is normal caliber. There are small bilateral retroperitoneal shotty lymph nodes. Prominent collateral vessels are seen in the upper abdomen. Pelvis: The bladder is distended without radiopaque calculi or bladder wall thickening. There is slightly high density urine noted in the bladder measuring 26 Hounsfield units. There is diffuse pelvic ascites. IMPRESSION: ?No acute cardiopulmonary process seen in the chest. ?Cirrhosis with diffuse ascites and prominent collateral vessels likely varicose veins in the upper abdomen. 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 Cognitive needs: No Hearing needs: No Vision needs: No Review of Systems Const All systems reviewed & are unremarkable except as noted in HPI and below Physical Exam Vital Signs: Last Vital Signs Pulse 69 08/14/23 08:33 BP 123/62 08/14/23 08:33 BMI result Body Mass Index 20.7 Const General: no acute distress Nutritional Appearance: average body habitus Orientation/consciousness: patient oriented x3 Limitations: no limitations HEENT Head: Yes normal to inspection Ears: hearing grossly normal bilaterally Mouth: Normal oral and palatal mucosa present Teeth and gingiva: poor dentition Eyes Sclerae: sclerae normal Pupils: Equal, round and reactive pupils present Neck Neck: Yes normal visual inspection Chest Chest palpation & inspection: normal inspection of the chest Resp Effort & Inspection: normal respiratory effort Auscultation: clear to auscultation bilaterally Cardio Palpation: normal PMI Rate: regular rate Rhythm: regular rhythm Heart sounds: S1 normal heart sound present, S2 normal heart sound present and no murmurs GI Inspection: Yes distended (due to ascites) Palpation (GI): Soft to palpation, nontender and No hepatosplenomegaly present Auscultation: normal bowel sounds Rectal Exam - Male: Yes deferred Skin General skin exam: no rashes or lesions noted and spider nevi Neuro General: patient oriented x3, gait normal and moves all extremities Cranial nerves: Yes Equal, round and reactive pupils present Psych Appearance: grossly normal Mental Status: mental status grossly normal Assessment & Plan Assessment & Plan (1) Chronic hepatitis C virus genotype 1b infection: Code(s): B18.2 - Chronic viral hepatitis C Category: Medical (2) Liver cirrhosis: Code(s): K74.60 - Unspecified cirrhosis of liver Category: Medical (3) Peptic ulcer disease: Code(s): K27.9 - Peptic ulcer, site unspecified, unspecified as acute or chronic, without hemorrhage or perforation Category: Medical (4) Esophageal and gastric varices: Code(s): I85.00 - Esophageal varices without bleeding; I86.4 - Gastric varices Category: Medical (5) Elevated LFTs: Code(s): R79.89 - Other specified abnormal findings of blood chemistry Category: Medical Plan 72 YM admitted to [facility] in October, for an elevated blood sugar and right lower extremity rash for 3 to 4 days.? Pt reported progressive abdominal distension for the past 2-3 yrs, early satiety and intermittent rectal bleeding (which he attributed to hemorrhoids) He gave a hx of wt loss of 20 lbs over the past 6 mths (from 160 to 140 lbs). He denied ETOH abuse Abd CT scan showed Cirrhosis with diffuse ascites and prominent collateral vessels likely varicose veins in the upper abdomen. 11/18/22 Labs showed positive Hep C ab TIP, Anti dsDNA, AMA, ASMA, SPEP, celiac serologies were negative Iron studies were consistent with anemia of chronic disease. Hepatitis C genotype was 1b and cryoglobulins were negative MELD score was 9 REDUCING THE RISK OF LIVER PROGRESSION: patient was advised to completely avoid use of alcohol Pt referred to [facility] Hepatology for Hep C treatment and has not been seen at [facility] since he has been on the road. (Called [facility] and they stated they have reached out several times to the patient but never got an answer or call back) HCC SURVEILLANCE: the patient is at risk of developing hepatocellular carcinoma given the presence of cirrhosis and need 6 monthly imaging surveillance with either abdominal ultrasound (US) or multiphase cross-sectional imaging (CT or MRI). Last Abd CT in 10/2022 had shown no focal liver lesions suspicious of HCC. He will be scheduled for follow-up liver ultrasound for ongoing surveillance. VACCINATIONS: Pt does not have serological evidence of prior exposure to or vaccination against hepatitis B or Hep A - GI RN to give 1st dose of Hep A and Hep B vaccine today Patient should also remain up-to-date with all age-appropriate vaccinations including vaccination against pneumococcus. Since pt does not have a PCP, he was advised to establish care with a PCP.. SURVEILLANCE FOR GASTROESOPHAGEAL VARICES: Schedule EGD for FU of esophageal and gastric varices - scheduled on 02/28/23. QUESTION OF LIVER TRANSPLANTATION: As pt has a MELDNa score of 12, Pt has been referred to [facility] Hepatology clinic for Hep C treatment Pt referred to the Hepatology clinic at [facility] for evaluation prior to initiating Hep C treatment (likely with Epclusa + Ribavarin) since he is at risk for worsening of liver disease with Hepatitis C treatment 08/14/23 Denies ETOH abuse. EGD results reviewed with the patient. FU in 8 weeks Orders: Orders Hepatitis B Adult Immunization Today Z23 - Encounter for immunization Complete Blood Count Auto Diff Today K74.60 - Unspecified cirrhosis of liver Hepatitis A Adult Immunization Today Z23 - Encounter for immunization Prothrombin Time INR Today K74.60 - Unspecified cirrhosis of liver Comprehensive Met. Panel Today K74.60 - Unspecified cirrhosis of liver US abdomen limited Today K74.60 - Unspecified cirrhosis of liver
[2023-08-14 08:33] VITALS: BP 123/62; PULSE 69; BMI 20.7
== END 2023-08-14 10:07 | disposition home or self-care (01) ==
PROVIDERS: PCP Family Medicine; Visit Provider Internal Medicine Gastroenterology
DX: B18.2 Chronic viral hepatitis C (principal); K74.60 Unspecified cirrhosis of liver; K27.9 Peptic ulcer, site unspecified, unspecified as acute or chronic, without hemorrhage or perforation; I85.00 Esophageal varices without bleeding; I86.4 Gastric varices; R79.89 Other specified abnormal findings of blood chemistry; Z23 Encounter for immunization
CPT/HCPCS: 99214

== ENCOUNTER 2023-10-27 09:23 | Outpatient (REF) | payer OTHER, SELFPAY ==
--- NOTE | ~2023-10-27 | US_ITS ---
EXAMINATION: US ABDOMEN LIMITED CLINICAL INFORMATION: Unspecified cirrhosis of the liver. Screen for HCC. COMPARISON: CT abdomen and pelvis 11/16/2022. TECHNIQUE: Real-time imaging of the right upper quadrant abdominal viscera. Limited visualization due to bowel gas. FINDINGS: PANCREAS: Limited visualization due to bowel gas. LIVER: Coarse, heterogeneous hepatic echotexture with nodular hepatic margin compatible with given history of cirrhosis. Limited visualization. Moderate amount of ascites noted adjacent to the liver. GALLBLADDER: Gallbladder wall appears edematous with gallbladder wall thickening of 8 mm. No gallstones appreciated. COMMON BILE DUCT: Normal in caliber measuring 0.4 cm in diameter. RIGHT KIDNEY: 4.8 cm upper and 2.2 cm lower pole cysts with benign features. There is no specific indication for additional imaging. No hydronephrosis or renal calculi. The kidney measures 10.6 cm in maximum dimension. FREE FLUID: Moderate amount of free fluid adjacent to the liver. US/US abdomen limited IMPRESSION: 1. Coarse, heterogeneous hepatic echotexture with nodular hepatic margin compatible with given history of cirrhosis. Limited visualization. Moderate amount of ascites noted adjacent to the liver. 2. Gallbladder wall appears edematous with gallbladder wall thickening of 8 mm. No gallstones appreciated. 3. Right renal cysts with benign features. There is no specific indication for additional imaging.
== END 2023-10-27 09:24 | disposition home or self-care (01) ==
LOC: HO.HMGCX 09:23
PROVIDERS: PCP Family Medicine; Visit Provider Internal Medicine Gastroenterology
DX: K74.60 Unspecified cirrhosis of liver (principal)
CPT/HCPCS: 76705

== ENCOUNTER 2023-10-27 11:29 | Outpatient (AMB) | payer OTHER, SELFPAY ==
[2023-10-27 11:45] VITALS: BP 130/70; PULSE 66; O2SAT 96; BMI 21.4
--- NOTE | 2023-10-27 11:45 | A.OFFPC_ITS ---
Vital Signs 10/27/23 11:45 Height 5 ft 10 in Weight 149 lb 2 oz BMI 21.4 BP 130/70 Blood Pressure Location Lt brachial Position Sitting Pulse 66 Pulse Source Pulse Oximeter Pulse Oximetry (%) 96 Oxygen Delivery Method Room Air Intake Visit Reasons: DM f/u - see comments Intake Note: Patient is here for diabetes follow up. Allergies No Known Allergies Allergy (Verified 10/27/23 11:53) Medication List - Last Reconciled 10/27/23 by Bradley Stubbs MD alcohol swabs 1 pad topical QIDACHS blood sugar diagnostic (FreeStyle Lite Strips) Test four times a day or as directed. blood-glucose meter (FreeStyle Lite Meter kit) As Directed carvedilol 3.125 mg PO Q12H 30 days cholecalciferol (vitamin D3) 50 mcg PO DAILY 30 days furosemide 20 mg PO DAILY 90 days lancets (FreeStyle Lancets) Test four times a day or as directed. [magnesium ] metformin 1,000 mg PO BID 30 days omeprazole 20 mg PO .daily 60 days sitagliptin phosphate (Januvia) 50 mg PO DAILY 30 days Tobacco use date assessed: 10/27/23 Fall risk assessment: No Falls in past year Last assessed Fall Risk: 10/27/23 Dental Screening Dental Screen Date: 05/01/23 HPI DM f/u - see comments HPI Details 73 y/o male presents to f/u diabetes. A1c today 10/27/23 6.0%. He is on Januvia, metformin 1000mg b.i.d. He notes he does not check his blood sugars at home. He notes it has been about a year and a half since his last eye exam. 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 Cognitive needs: No Hearing needs: No Vision needs: No Questionnaire Thrive Questionnaire Date Thrive assessed: 11/18/22 JOHN-7 AMB Questionnaire JOHN-7 Date JOHN - 7 assessed: 05/01/23 Source: Developed by Drs. John Guy, Dana Izquierdo, Cesario Live and colleagues, with an educational cristian from [employer]. Review of Systems Const Denies chills, Denies fatigue, Denies fever(s), Denies headache(s) and Denies weakness ENT Denies dizziness and Denies headache(s) Card Denies dyspnea Resp Denies cough, Denies dyspnea, Denies wheezing and Denies other (shortness of breath) Musc Denies numbness and Denies tingling Neuro Denies dizziness, Denies headache(s), Denies numbness, Denies tingling and Denies weakness Psych Denies anxiety and Denies depression Endo Denies fatigue Aller/Immun Denies wheezing Physical exam (Primary Care) Vital Signs: Last Vital Signs Pulse 66 10/27/23 11:45 BP 130/70 10/27/23 11:45 Pulse Ox 96 10/27/23 11:45 Oxygen Delivery Method Room Air 10/27/23 11:45 BMI result Body Mass Index 21.4 Tobacco/Smoking Status: Tobacco use Status Tobacco use date assessed 10/27/23 10/27/23 11:58 Patient Tobacco Use Status Current everyday Tobacco 10/27/23 11:58 Tobacco use type Cigarette 10/27/23 11:58 e-Cigarette/Vaping Use Never Used 10/27/23 11:58 Thrive Assessment: Date of Thrive Assessment Date Thrive assessed 11/18/22 10/27/23 11:58 Const General: well developed; No acute distress Nutritional Appearance: well nourished Orientation/consciousness: patient oriented x3 HENMT Head: Yes normocephalic and Yes atraumatic Eyes General: appearance normal, both eyes and all related structures Pupils: Equal, round and reactive pupils present EOM: EOMs intact bilaterally Resp Effort & Inspection: normal respiratory effort Neuro General: patient oriented x3 and gait normal Cranial nerves: Yes Equal, round and reactive pupils present Psych Affect: normal affect Assessment and Plan Assessment & Plan (1) Diabetes: Code(s): E11.9 - Type 2 diabetes mellitus without complications Plan: A1c?6.0%?on?Januvia?and?metformin. Good?control.??Goal?is?less?than?7.0% Continue?current?medication?regimen Has?not?seen?Ophthalmology?in?about?18?months-made?referr al?to?Ophthalmology?for?diabetic?retinal?exam Orders: Orders AMB Hemoglobin A1c Today Z13.9 - Encounter for screening, unspecified Referrals Ophthalmology Referral E11.9 - Type 2 diabetes mellitus without complications Coding Level of Care Code Est Pt Level 3 (85824) Diagnoses Diabetes E11.9
== END 2023-10-27 12:18 | disposition home or self-care (01) ==
PROVIDERS: PCP Family Medicine; Visit Provider Family Medicine
DX: E11.9 Type 2 diabetes mellitus without complications (principal)
CPT/HCPCS: 99213

== ENCOUNTER 2023-10-29 14:48 | Outpatient (AMB) | payer OTHER, SELFPAY ==
--- NOTE | 2023-10-29 14:59 | AM.OFFVISNUR ---
Intake Visit Reasons: Hep B #2 Allergies No Known Allergies Allergy (Verified 10/27/23 11:53) Assessment & Plan Assessment & Plan Orders: Orders Hepatitis B Adult Immunization Today Z23 - Encounter for immunization Medications: New Engerix-B (PF) (hepatitis B virus vacc.rec(PF)) 1 mL IM ONCE 1 mL 0RF NS Z23 - Encounter for immunization
== END 2023-10-29 15:03 | disposition home or self-care (01) ==
PROVIDERS: PCP Family Medicine; Visit Provider Internal Medicine Gastroenterology
DX: Z23 Encounter for immunization (principal)

== ENCOUNTER → 2023-10-29 14:48 | Outpatient (BNVA) | payer OTHER, SELFPAY | PROVIDERS: PCP Family Medicine; Visit Provider Internal Medicine Gastroenterology | DX: Z23 Encounter for immunization (principal) | CPT/HCPCS: 90471; 90746; 99211 ==

== ENCOUNTER 2024-01-02 09:41 | Day surgery (SDC) | payer OTHER, SELFPAY ==
--- NOTE | 2024-01-01 09:29 | HO.ANESPROP2 ---
Documented by User: Oriana Ponce NP 01/01/24 09:33 HPI - Anesthesia Eval Consult details Narrative: 73yo M for Upper Endoscopy and Colonoscopy s/p EGD 02/2023 with TIVA Cirrhosis with thrombocytopenia Last paracentesis 2022. US 10/2023 shows mod amount of ascites. PMFSH Active Problems Active Problems: All Active Problems Laboratory exam ordered as part of routine general medical examination (Acute) Smoker (Acute) Liver cirrhosis (Acute) Hepatitis C (Acute) Diabetes (Acute) Elevated LFTs (Acute) Esophageal and gastric varices (Acute) Peptic ulcer disease (Acute) Chronic hepatitis C virus genotype 1b infection (Acute) Liver cirrhosis (Acute) Thrombocytopenia (Acute) Newly diagnosed diabetes (Acute) Cellulitis of right leg (Acute) Past Medical History Medical History Hepatitis B Cellulitis Liver cirrhosis Diabetes Thrombocytopenia Hepatitis C Family History Family history of problems with anesthesia: No Surgical History Surgical History (Updated 01/02/24 @ 11:29 by Lani Tariq RN) Hx of bilateral cataract extraction Hx of esophagogastroduodenoscopy History of abdominal paracentesis History of Problems with Anesthesia: No Social History Social History Household Members: None Housing: Other Housing 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 If needs a place will stay with sister. Are you a primary administrator health care facility to a significant other at home: No Do you presently have visiting nurse or other home services: No Patient Tobacco Use Status: Current everyday Tobacco user Tobacco use type: Cigarette Cigarette Packs Per Day: 0.5 Cigarettes Per Day: 7 Smoked in Last 30 Days: Yes e-Cigarette/Vaping Use: Never Used Patient Interested in Nicotine Replacement: No Second Hand Smoke Exposure: Yes Have you been hit, kicked, punched, or otherwise hurt by someone within the past year? 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 Cognitive needs: No Hearing needs: No Vision needs: No Meds Allergies Allergy/AdvReac Type Severity Reaction Status Date / Time No Known Allergies Allergy Verified 01/02/24 10:47 Home Medications ?Medication ?Instructions ?Recorded ?Confirmed ?Last Taken ?Type magnesium 02/28/23 10/27/23 02/27/23 History Exam Pertinent Lab Results Pertinent Lab Results: Laboratory Tests 08/14/23 10:19 Sodium 143 Potassium 4.8 Chloride 110 H Carbon Dioxide 28 BUN 11 Creatinine 0.81 Narrative Narrative: US abdomen limited 01/02/24 IMPRESSION: 1. Coarse, heterogeneous hepatic echotexture with nodular hepatic margin compatible with given history of cirrhosis. Limited visualization. Moderate amount of ascites noted adjacent to the liver. 2. Gallbladder wall appears edematous with gallbladder wall thickening of 8 mm. No gallstones appreciated. 3. Right renal cysts with benign features. There is no specific indication for additional imaging. Assessment and Plan Assessment Anesthesia Assessment: Chart Reviewed Final Anesthetic Review Family History of Problems with Anesthesia: No History of Problems with Anesthesia: No Documented by User: Bar Mcmahon MD 01/02/24 11:48 [facility] Past Medical History Medical History Hepatitis B Cellulitis Liver cirrhosis Diabetes Thrombocytopenia Hepatitis C Surgical History Surgical History (Updated 01/02/24 @ 11:29 by Lani Tariq RN) Hx of bilateral cataract extraction Hx of esophagogastroduodenoscopy History of abdominal paracentesis Social History Social History Household Members: None Housing: Other Housing 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 If needs a place will stay with sister. Are you a primary administrator health care facility to a significant other at home: No Do you presently have visiting nurse or other home services: No Patient Tobacco Use Status: Current everyday Tobacco user Tobacco use type: Cigarette Cigarette Packs Per Day: 0.5 Cigarettes Per Day: 7 Smoked in Last 30 Days: Yes e-Cigarette/Vaping Use: Never Used Patient Interested in Nicotine Replacement: No Second Hand Smoke Exposure: Yes Have you been hit, kicked, punched, or otherwise hurt by someone within the past year? 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 Cognitive needs: No Hearing needs: No Vision needs: No Meds Allergies Allergy/AdvReac Type Severity Reaction Status Date / Time No Known Allergies Allergy Verified 01/02/24 10:47 Home Medications ?Medication ?Instructions ?Recorded ?Confirmed ?Last Taken ?Type magnesium 02/28/23 10/27/23 02/27/23 History Exam Airway Mallampati Class: II TM Dist: >3cm Denture: Upper and Lower Assessment and Plan Assessment Anesthesia Assessment: Anesthesia Plan Discussed Final Anesthetic Review NPO: Yes ASA Class: III Final Preanesthetic Review: No Changes in Pt Med Stat, Meds/Allgs Chart Reviewed, Consent Obtained/Reviewed and Anes Risks/Benef Reviewed Patient Risk: Intermediate Procedure Risk: Low Anesthetic Plan Anesthetic Plan: TIVA Disposition: Standard PACU
[2024-01-02 10:49] VITALS: BMI 21.1
[2024-01-02 10:51] LABS: Hematocrit 35.7 % (42.0-52.0); Hemoglobin 12.3 g/dl (14.0-18.0); Mean Corpuscular HGB Conc 34.5 g/dl (31.0-36.0); Mean Corpuscular Hemoglobin 36.2 pg (27.0-33.0); Red Cell Distribution Width 13.6 % (11.0-16.0); White Blood Count 6.4 X10*3/uL (4.8-10.8)
[2024-01-02 10:52] LABS: Platelet Count 92 X10*3/uL (160-400)
[2024-01-02 10:55] LABS: INTERNATIONAL NORM RATIO 1.3 (0.9-1.1); Prothrombin Time 15.4 SEC (11.1-13.3)
[2024-01-02] MEDS: Lactated Ringers 1,000 ML 100 ML IVCONT (10:58)
[2024-01-02 11:05] LABS: Glucose, Whole Blood 106 mg/dL (60-115)
[2024-01-02 11:23] VITALS: BP 144/73; PULSE 72; RESP 18; TEMP 36.7; O2SAT 98
--- NOTE | 2024-01-02 11:24 | PC.NURSE ---
Dr. Krueger assessed patient's right lower leg as it is weeping and oozing in 2 areas and patient states that he has been taking care of it himself and has not been seen by a doctor. Patient has areas covered with bandaids which appear dry. No redness, warmth noted outside of bandaid border. Patient reports that he believes that it was his Januvia that caused this approx. 2 weeks ago and he stopped taking it and states PCP aware of him stopping the med. Dr. Krueger stated that she will send a message to patient's PCP, Dr. Stubbs regarding the above.
--- NOTE | 2024-01-02 11:47 | MHC.SHP ---
Pre-Procedural Eval Section A - 24 Hr Update-Section A only Date of Service: 01/02/24 The patient is an INPATIENT: No The patient has been examined within 24 hours of the surgical procedure. The History & Physical has been completed within 30 days and I have reviewed it.: No Section B - Complete if H&P > 30 days Chief Complaint: screening, fu of esophageal varices Relevant Family History (Specify if Yes): No Relevant Social History: Tobacco Use Present Medications: see Short Stay Collaborative assessment Medical History: Significant History (Hepatitis B Cellulitis Liver cirrhosis Diabetes Thrombocytopenia Hepatitis C) History of Previous Operations: Relevant previous surgery/procedure and date(s) (History of abdominal paracentesis) Allergies: Allergies Allergy/AdvReac Type Severity Reaction Status Date / Time No Known Allergies Allergy Verified 01/02/24 10:47 Review of Systems Sugical H&P ROS: Negative: Constitution, Cardiovascular, Respiratory and Gastrointestinal Exam Surgical H&P Exam: Normal: Heart, Normal: Lungs and Normal: Abdomen and Significant Findings: Extremities (cellulitis rt lower ext) Plan Diagnosis/Plan: Change (proceed with EGD (FU of varices) and colonoscopy (screening)) I have reviewed the history and physical and performed a pertinent physical examination on my patient. No changes have occurred unless specified. Time Spent With Patient Time: Total time managing care of this patient today ____ minutes.
--- NOTE | 2024-01-02 12:08 | P.OPN-COLO_ITS ---
Colonoscopy Operative Note Operative Note Date of Service: 01/02/24 Narrative: FLEXIBLE TRANSORAL UPPER GASTROINTESTINAL ENDOSCOPY WITH ESOPHAGEAL BAND LIGATION AND COLONOSCOPY TILL CECUM WITH BIOPSIES AND SNARE POLYPECTOMY Pre-op diagnosis: Colon cancer screening, FU esophageal varives Post-op diagnosis: Esophageal varices, portal hypertensive gastropathy, Colon Polyps, Daniels-diverticulosis, hemorrhoids Endoscopist:? Malia rKueger MD Anesthesia:?MAC UPPER ENDOSCOPY Consent: Indications for the procedure and potential complications of bleeding, perforation, reaction to medications and missed diagnosis were discussed with the patient and informed consent was obtained. Instrument: Olympus GIF H 190 mid size upper endoscope Monitoring: Vital signs and clinical assessment, continuous EKG monitoring, Pulse oximetry, Carbon Dioxide monitoring and blood pressure monitoring were done throughout the procedure. Procedure: The patient was placed in the left lateral decubitis position and pre-procedure medications were administered and a bite block was placed. The endoscope was inserted into the mouth and advanced under direct vision to the third part of duodenum. A careful inspection was made as the upper endoscope was withdrawn including a retroflexed examination of the proximal stomach; Findings and interventions are described below. Findings: Larynx: Normal Esophagus: GE junction at 40 cms. Grade 2 to 3 four column non-bleeding varices from 32 to 40 cms with red laura signs. Band ligation of varices was performed and three bands were placed with flattening of varices. Stomach: Moderate portal hypertensive gastropathy. Grade 2 flap valve on retroflexed examination of the cardia. Duodenum: Normal bulb and descending duodenum COLONOSCOPY PROCEDURE NOTE Instrument: Olympus CF H 190 L variable stiffness adult colonoscope Monitoring: Vital signs and clinical assessment, intermittent blood pressure monitoring, continuous EKG monitoring, Pulse oximetry and Carbon Dioxide monitoring were done throughout the procedure. Please see anesthesia flowsheet. Colon withdrawl time was 24 minutes. Procedure: The patient was placed in the left lateral decubitis position and pre-procedure medications were administered. After a digital rectal examination of the ano-rectum, the video colonoscope was inserted into the rectum and advanced through the colon to the cecum. The colonoscope was slowly withdrawn in a retrograde panoramic fashion and the colon mucosa was carefully examined including a retroflexed view of the rectum. Findings and interventions are described below. Procedure Difficulty: without difficulty Findings: Terminal Ileum: Not evaluated Cecum: Normal Ascending Colon: Moderate diverticulosis throughout the entire colon Transverse Colon: Moderate diverticulosis throughout the entire colon Descending Colon: Moderate diverticulosis throughout the entire colon Sigmoid Colon: A 7-8 mm sessile polyp - ablated with a hot snare and no specimen was retrieved. Severe diverticulosis with luminal narrowing Rectum: A 5-6 mm sessile polyp - removed with a cold biopsy. Some bleeding noted at the site - treated with cautery using the snare tip and one hemoclip Ano-rectum: Moderate internal hemorrhoids Colon preparation: Good after copious irrigation. [place] Bowel Preparation Scale Right colon; 2 Transverse colon: 2 Left colon; 2 (0 = Unprepared colon segment with mucosa not seen due to solid stool that cannot be cleared. 1 = Portion of mucosa of the colon segment seen, but other areas of the colon segment not well seen due to staining, residual stool and/or opaque liquid. 2 = Minor amount of residual staining, small fragments of stool and/or opaque liquid, but mucosa of colon segment seen well. 3 = Entire mucosa of colon segment seen well with no residual staining, small fragments of stool or opaque liquid) Impression and Post Procedure Diagnosis: Endoscopy Findings: ESOPHAGUS: Grade 2 to 3 four column non-bleeding varices from 32 to 40 cms with red laura signs - band ligation x 3 STOMACH: Moderate portal hypertensive gastropathy. Colonoscopy Findings: Two small polyps were removed Moderate to severe diverticulosis seen in the entire colon Moderate hemorrhoids on retroflexed exam. Plan: Pt has a FU appointment on 01/15/[address] Krueger Repeat EGD in 3 - 4 months (FU of esophageal varices - scheduled 05/24/23) and Colonoscopy in 5 years since a 7-8 mm sessile polyp was not retrieved. Above findings were reviewed with the patient and relevant handouts were given and the discharge area. BIOPSIES SHOWED: Colon, rectal polyp: Hyperplastic polyp.
[2024-01-02 12:52] VITALS: BP 123/82; PULSE 82; RESP 16; TEMP 36.1; O2SAT 99
[2024-01-02 13:07] VITALS: BP 110/74; PULSE 76; RESP 18; TEMP 36.2; O2SAT 98
== END 2024-01-02 13:34 | disposition home or self-care (01) ==
PROVIDERS: Nurse Practitioner; PCP Family Medicine; Visit Provider Internal Medicine Gastroenterology
PROC: (CPT 45385; principal; 2024-01-02 12:30)
DX: Z12.11 Encounter for screening for malignant neoplasm of colon (principal); K63.5 Polyp of colon; K62.1 Rectal polyp; K57.30 Diverticulosis of large intestine without perforation or abscess without bleeding; K64.8 Other hemorrhoids; K76.6 Portal hypertension; K31.89 Other diseases of stomach and duodenum; K21.9 Gastro-esophageal reflux disease without esophagitis; I85.00 Esophageal varices without bleeding; K29.50 Unspecified chronic gastritis without bleeding; K26.9 Duodenal ulcer, unspecified as acute or chronic, without hemorrhage or perforation; K31.7 Polyp of stomach and duodenum; K20.80 Other esophagitis without bleeding; K74.60 Unspecified cirrhosis of liver; B18.2 Chronic viral hepatitis C; B19.10 Unspecified viral hepatitis B without hepatic coma; D69.6 Thrombocytopenia, unspecified; L03.90 Cellulitis, unspecified; R79.89 Other specified abnormal findings of blood chemistry; E11.9 Type 2 diabetes mellitus without complications; Z79.84 Long term (current) use of oral hypoglycemic drugs; Z79.899 Other long term (current) drug therapy; Z98.890 Other specified postprocedural states; F17.210 Nicotine dependence, cigarettes, uncomplicated
CPT/HCPCS: 45385; 45380; 43244; 43239; 36415; 82947; 85027; 85610; 88305; J2704

== ENCOUNTER → 2024-01-02 09:41 | Outpatient (BNV) | payer OTHER, SELFPAY | PROVIDERS: PCP Family Medicine; Visit Provider Internal Medicine Gastroenterology | DX: Z12.11 Encounter for screening for malignant neoplasm of colon (principal); K63.5 Polyp of colon; K57.90 Diverticulosis of intestine, part unspecified, without perforation or abscess without bleeding; K64.9 Unspecified hemorrhoids; I85.00 Esophageal varices without bleeding; K31.89 Other diseases of stomach and duodenum | CPT/HCPCS: 43244; 45380; 45385 ==

== ENCOUNTER 2024-01-15 13:09 | Outpatient (AMB) | payer OTHER, SELFPAY ==
[2024-01-15 13:13] VITALS: BP 113/58; PULSE 56; BMI 20.9
--- NOTE | 2024-01-15 13:13 | A.OFFVIS_ITS ---
Vital Signs 01/15/24 13:13 Height 5 ft 10 in Weight 145 lb 8.081 oz BMI 20.9 BP 113/58 L Blood Pressure Location Lt brachial Position Sitting Pulse 56 Intake Visit Reasons: S/P double; Dr. Krueger Intake Note: Karsten presents in the office as a follow up EGD and COLO. CC: He states that he is here for the results. He has a sore on his leg that he would like you to look at. He stopped januvia due to them. He wants to know what you suggest that he do. He has an overactive digestive system and would like to know what the cause is. Questioning if he has Crohns Colitis. Main concern is what as should eat to have a good BM. Clipping Marker Required: No Allergies No Known Allergies Allergy (Verified 01/15/24 13:13) Medication List - Last Reconciled 01/15/24 by Malia Krueger MD blood sugar diagnostic (FreeStyle Lite Strips) Test four times a day or as directed. blood-glucose meter (FreeStyle Lite Meter kit) As Directed carvedilol 3.125 mg PO Q12H 30 days cholecalciferol (vitamin D3) 50 mcg PO DAILY 30 days furosemide 20 mg PO DAILY 90 days lancets (FreeStyle Lancets) Test four times a day or as directed. [magnesium ] metformin 1,000 mg PO BID 30 days omeprazole 20 mg PO .daily 60 days HPI HPI S/P double; Dr. Krueger: Details: GI clinic visit for this 73 YM for follow-up after recent hospitalization for chronic hepatitis C and cirrhosis complicated by ascites and SBP MELD score was 9 TODAY'S VISIT: Karsten presents in the office as a follow up EGD and COLO. CC: He states that he is here for the results. He has a sore on his leg that he would like you to look at. He stopped januvia due to them. He wants to know what you suggest that he do. He has an overactive digestive system and would like to know what the cause is. Questioning if he has Crohns Colitis. Main concern is what as should eat to have a good BM. EGD and colon results were reviewed with the patient Stopped taking Januvia on 12/29/23. Noted a rash with an ulcer on his right leg - clearing up since he stopped taking the Januvia Takes metformin. Can have diarrhea depending on his diet. Has not been back to work the month of December (sister cooks his meals) Diarrhea has been better since he has been taking home cooked meals Has not been seen at [facility] since he has been on the road. New referral sent and pt advised to make sure he follows up so decision can be made regarding Hep C treatment versus OLT PAST VISITS: Denies ETOH abuse. EGD results reviewed with the patient. Noted some throat pain after the procedure which resolved after 1 day. Denies abdominal distension Patient cc: diarrhea on and off, abdominal bloating. Denies any other GI issues. Has been doing ok since discharged Had Hep B in the mid s - from drinking out of a very dirty glass . Unsure how he acquired Hep C - denies IVDA or blood transfusion or exposure to anyone with Hep C. Appetite is good and abd distension has improved. Denies diarrhea, constipation or black stools. Notes rectal bleeding which is very rare. Patient denies symptoms of heartburn, dysphagia, nausea, vomiting, change in appetite or weight. Denies recent change in bowel habits, constipation, diarrhea, black stools or rectal bleeding. Patient denies major cardiac or pulmonary problems, loud snoring or sleep apnea Denies taking NSAIDS or being on chronic anticoagulation. Pt admits to smoking 1 PPD x 30-40 yrs and quitted recently He denies ETOH abuse Family hx is positive for Esophageal cancer in his Dad. Patient denies major cardiac or pulmonary problems, loud snoring or sleep apnea Denies problems with anesthesia in the past. Denies being on chronic anticoagulation. Patient denies known family history of colon polyps, colon cancer or other GI malignancies. LABS IN Telecardia : Reviewed IMAGING STUDIES: 10/[address] SCAN SHOWED: No acute cardiopulmonary process seen in the chest. Cirrhosis with diffuse ascites and prominent collateral vessels likely varicose veins in the upper abdomen. Right renal cysts. ENDOSCOPIC STUDIES: 02/28/23 EGD SHOWED: ESOPHAGUS: Grade 2 to 3 four column non-bleeding varices from 32 to 40 cms with red laura signs. Band ligation of varices was performed and five bands were placed with flattening of varices. STOMACH: Moderate portal hypertensive gastropathy. Antral biopsies were obtained to check for H Pylori. A 2.5 cms non bleeding gastric varix in the fundus and grade 2 flap valve on retroflexed examination of the cardia. DUODENUM: Two 5 to 8 mm superficial non bleeding ulcers in the bulb Plan: Above findings were reviewed with the patient and Esophageal Varices and Esophageal Banding handouts were given in the discharge area. Pt was advised to start Omeprazole 20 mg daily for PUD and prophylaxis for banding ulcers. Repeat EGD in 3-4 months for FU of esophageal varices BIOPSIES SHOWED: Stomach, antrum, biopsy: Gastric antral mucosa within normal limits; negative for Helicobacter pylori, intestinal metaplasia and dysplasia PAST GI HISTORY BY REVIEW OF MEDICAL RECORDS: 11/17/22 Pt was seen during hospitalization at [facility]: [address] [facility] ED on 11/16/22 for an elevated blood sugar and right lower extremity rash for 3 to 4 days.?Patient denies any past medical history he does not take any medicine.Pt reports having progressive abdominal distension for the past 2-3 yrs. He also notes early satiety and intermittent rectal bleeding (attributes to hemorrhoids) Pt reports a remote hx of having Hep B which resolved spontaneously. He gives a hx of constipation alternating with diarrhea. 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 States he has been donating his money to the [facility] He gives a hx of wt loss of 20 lbs over the past 6 mths (from 160 to 140 lbs). Pt denies having a colonoscopy in the past. Plan [address] [facility] ED on 11/16/22 for an elevated blood sugar and right lower extremity rash for 3 to 4 days.?Pt reports having progressive abdominal distension for the past 2-3 yrs.He also notes early satiety and intermittent rectal bleeding (attributes to hemorrhoids) Pt reports a remote hx of having ?Hep B which resolved spontaneously. He gives a hx of wt loss of 20 lbs over the past 6 mths (from 160 to 140 lbs). He denies ETOH abuse Abd CT scan showed?Cirrhosis with diffuse ascites and prominent collateral vessels likely varicose veins in the upper abdomen. MELD score is 9 Etiology of cirrhosis is unclear - possibly viral hepatitis, hemochromatosis, SWENSON, autoimmune hepatitis, celiac disease RECOMMENDATIONS: 1.? Check TIP, Anti dsDNA, AMA, ASMA, SPEP, celiac serologies - added to am labs 2.? US guided paracenteses and send ascitic fluid for cell count, albumin, protein and amylase 11/18/22 Labs showed positive Hep C abAdvise checking Hep C viral load, genotype and cryoglobulins to determine if pt has active Hep C and needs treatment. 11/16/22 ABD & PELVIC CT SCAN SHOWED:Liver, ducts and gallbladder: The liver is homogeneous in density,lobulated contour and normal size. There is diffuse ascites. No radiopaque gallstones or wall thickening seen. Spleen: Spleen is borderline normal measuring 12). There is a small accessory splenule inferior to the hilum GI tract: There is moderate scattered stool, diverticuli and gas seen throughout the colon without significant distention or diverticulitis. The small bowel loops is nondistended and appears unremarkable. There is diffuse ascites. Scratch that Lymphovascular structures: Abdominal aorta is normal caliber. There are small bilateral retroperitoneal shotty lymph nodes. Prominent collateral vessels are seen in the upper abdomen. Pelvis: The bladder is distended without radiopaque calculi or bladder wall thickening. There is slightly high density urine noted in the bladder measuring 26 Hounsfield units. There is diffuse pelvic ascites. IMPRESSION: ?No acute cardiopulmonary process seen in the chest. ?Cirrhosis with diffuse ascites and prominent collateral vessels likely varicose veins in the upper abdomen. 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 If needs a place will stay with sister. 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 Cognitive needs: No Hearing needs: No Vision needs: No Review of Systems Const All systems reviewed & are unremarkable except as noted in HPI and below Physical Exam Vital Signs: Last Vital Signs Pulse 56 01/15/24 13:13 BP 113/58 L 01/15/24 13:13 BMI result Body Mass Index 20.9 Const General: no acute distress Nutritional Appearance: average body habitus Orientation/consciousness: patient oriented x3 Limitations: no limitations HEENT Head: Yes normal to inspection Ears: hearing grossly normal bilaterally Mouth: Normal oral and palatal mucosa present Teeth and gingiva: poor dentition Eyes Sclerae: sclerae normal Pupils: Equal, round and reactive pupils present Neck Neck: Yes normal visual inspection Chest Chest palpation & inspection: normal inspection of the chest Resp Effort & Inspection: normal respiratory effort Auscultation: clear to auscultation bilaterally Cardio Palpation: normal PMI Rate: regular rate Rhythm: regular rhythm Heart sounds: S1 normal heart sound present, S2 normal heart sound present and no murmurs GI Inspection: Yes distended (due to ascites) Palpation (GI): Soft to palpation, nontender and No hepatosplenomegaly present Auscultation: normal bowel sounds Rectal Exam - Male: Yes deferred Skin General skin exam: no rashes or lesions noted and spider nevi Neuro General: patient oriented x3, gait normal and moves all extremities Cranial nerves: Yes Equal, round and reactive pupils present Psych Appearance: grossly normal Mental Status: mental status grossly normal Assessment & Plan Assessment & Plan (1) Thrombocytopenia: Code(s): D69.6 - Thrombocytopenia, unspecified Category: Medical (2) Liver cirrhosis: Code(s): K74.60 - Unspecified cirrhosis of liver Category: Medical (3) Chronic hepatitis C virus genotype 1b infection: Code(s): B18.2 - Chronic viral hepatitis C Category: Medical (4) Peptic ulcer disease: Code(s): K27.9 - Peptic ulcer, site unspecified, unspecified as acute or chronic, without hemorrhage or perforation Category: Medical (5) Esophageal and gastric varices: Code(s): I85.00 - Esophageal varices without bleeding; I86.4 - Gastric varices Category: Medical (6) Elevated LFTs: Code(s): R79.89 - Other specified abnormal findings of blood chemistry Category: Medical (7) Low vitamin D level: Code(s): R79.89 - Other specified abnormal findings of blood chemistry Category: Medical Plan [address] [facility] in October, for an elevated blood sugar and right lower extremity rash for 3 to 4 days.? Pt reported progressive abdominal distension for the past 2-3 yrs, early satiety and intermittent rectal bleeding (which he attributed to hemorrhoids) He gave a hx of wt loss of 20 lbs over the past 6 mths (from 160 to 140 lbs). He denied ETOH abuse Abd CT scan showed Cirrhosis with diffuse ascites and prominent collateral vessels likely varicose veins in the upper abdomen. 11/18/22 Labs showed positive Hep C ab TIP, Anti dsDNA, AMA, ASMA, SPEP, celiac serologies were negative Iron studies were consistent with anemia of chronic disease. Hepatitis C genotype was 1b and cryoglobulins were negative MELD score was 9 REDUCING THE RISK OF LIVER PROGRESSION: patient was advised to completely avoid use of alcohol Pt referred to [facility] Hepatology for Hep C treatment and has not been seen at [facility] since he has been on the road. (Called [facility] and they stated they have reached out several times to the patient but never got an answer or call back) HCC SURVEILLANCE: the patient is at risk of developing hepatocellular carcinoma given the presence of cirrhosis and need 6 monthly imaging surveil hitesh with either abdominal ultrasound (US) or multiphase cross-sectional imaging (CT or MRI). Last Abd CT in 10/2022 had shown no focal liver lesions suspicious of HCC. He will be scheduled for follow-up liver ultrasound for ongoing surveillance. VACCINATIONS: Pt does not have serological evidence of prior exposure to or vaccination against hepatitis B or Hep A - GI RN to give 1st dose of Hep A and Hep B vaccine today Patient should also remain up-to-date with all age-appropriate vaccinations including vaccination against pneumococcus. Since pt does not have a PCP, he was advised to establish care with a PCP.. SURVEILLANCE FOR GASTROESOPHAGEAL VARICES: Schedule EGD for FU of esophageal and gastric varices - scheduled on 02/28/23. QUESTION OF LIVER TRANSPLANTATION: As pt has a MELDNa score of 12, Pt has been referred to [facility] Hepatology clinic for Hep C treatment Pt referred to the Hepatology clinic at [facility] for evaluation for OLT prior to initiating Hep C treatment (likely with Epclusa + Ribavarin) since he is at risk for worsening of liver disease with Hepatitis C treatment. 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 New referral sent and pt advised to make sure he follows up so decision can be made regarding Hep C treatment versus OLT Repeat EGD in 3 months, FU in 4 months Orders: Orders Complete Blood Count Auto Diff Today K74.60 - Unspecified cirrhosis of liver Vitamin D 25-OH Total Today K74.60 - Unspecified cirrhosis of liver Comprehensive Met. Panel Today K74.60 - Unspecified cirrhosis of liver Hemoglobin A1c Today K74.60 - Unspecified cirrhosis of liver Referrals Gastroenterology Referral B18.2 - Chronic viral hepatitis C, K74.60 - Unspecified cirrhosis of liver Medications: Changed From furosemide 20 mg PO DAILY 90 days 90 tabs 1RF K74.60 - Unspecified cirrhosis of liver To furosemide 20 mg PO BID 90 days 180 tabs 1RF K74.60 - Unspecified cirrhosis of liver Discontinued cephalexin Discontinued Reason: Patient no longer taking 250 mg PO Q8H 10 days 30 caps 0RF L03.115 - Cellulitis of right lower limb sulfamethoxazole-trimethoprim 800-160 mg Discontinued Reason: Patient Completed Course 1 tab PO DAILY 90 days 90 tabs 1RF K65.2 - Spontaneous bacterial peritonitis Coding Level of Care Code Est Pt Level 4 (29029) Diagnoses Thrombocytopenia D69.6 Liver cirrhosis K74.60 Chronic hepatitis C virus genotype 1b infection B18.2 Peptic ulcer disease K27.9 Esophageal and gastric varices I85.00; I86.4 Elevated LFTs R79.89 Low vitamin D level R79.89 Time Spent (min) 29
== END 2024-01-15 15:57 | disposition home or self-care (01) ==
PROVIDERS: PCP Family Medicine; Visit Provider Internal Medicine Gastroenterology
DX: D69.6 Thrombocytopenia, unspecified (principal); K74.60 Unspecified cirrhosis of liver; B18.2 Chronic viral hepatitis C; K27.9 Peptic ulcer, site unspecified, unspecified as acute or chronic, without hemorrhage or perforation; I85.00 Esophageal varices without bleeding; I86.4 Gastric varices; R79.89 Other specified abnormal findings of blood chemistry
CPT/HCPCS: 99214

== ENCOUNTER → 2024-01-15 13:09 | Outpatient (BNVA) | payer OTHER, SELFPAY | PROVIDERS: PCP Family Medicine; Visit Provider Internal Medicine Gastroenterology | DX: D69.6 Thrombocytopenia, unspecified (principal); K74.60 Unspecified cirrhosis of liver; B18.2 Chronic viral hepatitis C; K27.9 Peptic ulcer, site unspecified, unspecified as acute or chronic, without hemorrhage or perforation; R79.89 Other specified abnormal findings of blood chemistry; I85.00 Esophageal varices without bleeding; I86.4 Gastric varices | CPT/HCPCS: 99212 ==

== ENCOUNTER 2024-03-05 12:51 | Outpatient (AMB) | payer OTHER, SELFPAY ==
--- NOTE | 2024-03-05 12:57 | AM.OFFVISNUR ---
Intake Visit Reasons: Hep B #3 Allergies No Known Allergies Allergy (Verified 01/15/24 13:13) Assessment & Plan Assessment & Plan Orders: Orders Hepatitis B Adult Immunization Today Z23 - Encounter for immunization Medications: New Engerix-B (PF) (hepatitis B virus vacc.rec(PF)) 1 mL IM ONCE 1 mL 0RF NS Z23 - Encounter for immunization
== END 2024-03-05 12:58 | disposition home or self-care (01) ==
PROVIDERS: PCP Family Medicine; Visit Provider Internal Medicine Gastroenterology
DX: Z23 Encounter for immunization (principal)

== ENCOUNTER → 2024-03-05 12:51 | Outpatient (BNVA) | payer OTHER, SELFPAY | PROVIDERS: PCP Family Medicine; Visit Provider Internal Medicine Gastroenterology | DX: Z23 Encounter for immunization (principal) | CPT/HCPCS: 90471; 90746; 99211 ==

== ENCOUNTER 2024-05-20 12:12 | Outpatient (AMB) | payer MEDICARE, SELFPAY ==
--- NOTE | 2024-05-20 12:21 | A.OFFVIS_ITS ---
Vital Signs 05/20/24 12:22 Height 5 ft 10 in Weight 173 lb BMI 24.8 BP 146/80 H Blood Pressure Location Lt brachial Position Sitting Pulse 99 Intake Visit Reasons: FU of cirrhosis 4 mo f/u Intake Note: Patient follow up for Chronic hepatitis C virus genotype 1b infection. Patient cc abdominal pain with bloating, between diarrhea and constipation. Denies any other GI issues. Director Of Income Tax Required: No Accompanied by: Self / Same As Patient Allergies No Known Allergies Allergy (Verified 05/20/24 12:21) Medication List - Last Reconciled 05/20/24 by Malia Krueger MD blood sugar diagnostic (FreeStyle Lite Strips) Test four times a day or as directed. blood-glucose meter (FreeStyle Lite Meter kit) As Directed carvedilol 3.125 mg PO Q12H 30 days cholecalciferol (vitamin D3) 50 mcg PO DAILY 30 days furosemide 20 mg PO BID 90 days lancets (FreeStyle Lancets) Test four times a day or as directed. [magnesium ] metformin 1,000 mg PO BID 30 days omeprazole 20 mg PO .daily 60 days HPI HPI FU of cirrhosis 4 mo f/u: Details: GI clinic visit for this 73 YM for follow-up of chronic hepatitis C and cirrhosis complicated by ascites and SBP MELD score was 9 TODAY'S VISIT: Patient cc abdominal pain with bloating, between diarrhea and constipation. Wt gain of 28 lbs over the past 4 months Notes worsening abdominal distension over the past few months Did not schedule an appt at [facility] center since he has been on the road working PAST VISITS: Karsten presents in the office as a follow up EGD and COLO. CC: He states that he is here for the results. He has a sore on his leg that he would like you to look at. He stopped januvia due to them. He wants to know what you suggest that he do. He has an overactive digestive system and would like to know what the cause is. Questioning if he has Crohns Colitis. Main concern is what as should eat to have a good BM. EGD and colon results were reviewed with the patient Stopped taking Januvia on 12/29/23. Noted a rash with an ulcer on his right leg - clearing up since he stopped taking the Januvia Takes metformin. Can have diarrhea depending on his diet. Has not been back to work the month of December (sister cooks his meals) Diarrhea has been better since he has been taking home cooked meals Has not been seen at [facility] since he has been on the road. New referral sent and pt advised to make sure he follows up so decision can be made regarding Hep C treatment versus OLT Denies ETOH abuse. EGD results reviewed with the patient. Noted some throat pain after the procedure which resolved after 1 day. Denies abdominal distension Patient cc: diarrhea on and off, abdominal bloating. Denies any other GI issues. Has been doing ok since discharged Had Hep B in the mid s - from drinking out of a very dirty glass . Unsure how he acquired Hep C - denies IVDA or blood transfusion or exposure to anyone with Hep C. Appetite is good and abd distension has improved. Denies diarrhea, constipation or black stools. Notes rectal bleeding which is very rare. Patient denies symptoms of heartburn, dysphagia, nausea, vomiting, change in appetite or weight. Denies recent change in bowel habits, constipation, diarrhea, black stools or rectal bleeding. Patient denies major cardiac or pulmonary problems, loud snoring or sleep apnea Denies taking NSAIDS or being on chronic anticoagulation. Pt admits to smoking 1 PPD x 30-40 yrs and quitted recently He denies ETOH abuse Family hx is positive for Esophageal cancer in his Dad. Patient denies major cardiac or pulmonary problems, loud snoring or sleep apnea Denies problems with anesthesia in the past. Denies being on chronic anticoagulation. Patient denies known family history of colon polyps, colon cancer or other GI malignancies. LABS IN [facility] : Reviewed IMAGING STUDIES: 10/[address] SCAN SHOWED: No acute cardiopulmonary process seen in the chest. Cirrhosis with diffuse ascites and prominent collateral vessels likely varicose veins in the upper abdomen. Right renal cysts. ENDOSCOPIC STUDIES: 02/28/23 EGD SHOWED: ESOPHAGUS: Grade 2 to 3 four column non-bleeding varices from 32 to 40 cms with red laura signs. Band ligation of varices was performed and five bands were placed with flattening of varices. STOMACH: Moderate portal hypertensive gastropathy. Antral biopsies were obtained to check for H Pylori. A 2.5 cms non bleeding gastric varix in the fundus and grade 2 flap valve on retroflexed examination of the cardia. DUODENUM: Two 5 to 8 mm superficial non bleeding ulcers in the bulb Plan: Above findings were reviewed with the patient and Esophageal Varices and Esophageal Banding handouts were given in the discharge area. Pt was advised to start Omeprazole 20 mg daily for PUD and prophylaxis for banding ulcers. Repeat EGD in 3-4 months for FU of esophageal varices BIOPSIES SHOWED: Stomach, antrum, biopsy: Gastric antral mucosa within normal limits; negative for Helicobacter pylori, intestinal metaplasia and dysplasia PAST GI HISTORY BY REVIEW OF MEDICAL RECORDS: 11/17/22 Pt was seen during hospitalization at [facility]: 72 YM seen at [facility] ED on 11/16/22 for an elevated blood sugar and right lower extremity rash for 3 to 4 days.?Patient denies any past medical history he does not take any medicine.Pt reports having progressive abdominal distension for the past 2-3 yrs. He also notes early satiety and intermittent rectal bleeding (attributes to hemorrhoids) Pt reports a remote hx of having Hep B which resolved spontaneously. He gives a hx of constipation alternating with diarrhea. 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 States he has been donating his money to the [employer] He gives a hx of wt loss of 20 lbs over the past 6 mths (from 160 to 140 lbs). Pt denies having a colonoscopy in the past. Plan 72 YM seen at [facility] ED on 11/16/22 for an elevated blood sugar and right lower extremity rash for 3 to 4 days.?Pt reports having progressive abdominal distension for the past 2-3 yrs.He also notes early satiety and intermittent rectal bleeding (attributes to hemorrhoids) Pt reports a remote hx of having ?Hep B which resolved spontaneously. He gives a hx of wt loss of 20 lbs over the past 6 mths (from 160 to 140 lbs). He denies ETOH abuse Abd CT scan showed?Cirrhosis with diffuse ascites and prominent collateral vessels likely varicose veins in the upper abdomen. MELD score is 9 Etiology of cirrhosis is unclear - possibly viral hepatitis, hemochromatosis, SWENSON, autoimmune hepatitis, celiac disease RECOMMENDATIONS: 1.? Check TIP, Anti dsDNA, AMA, ASMA, SPEP, celiac serologies - added to am labs 2.? US guided paracenteses and send ascitic fluid for cell count, albumin, protein and amylase 11/18/22 Labs showed positive Hep C abAdvise checking Hep C viral load, genotype and cryoglobulins to determine if pt has active Hep C and needs treatment. 11/16/22 ABD & PELVIC CT SCAN SHOWED:Liver, ducts and gallbladder: The liver is homogeneous in density,lobulated contour and normal size. There is diffuse ascites. No radiopaque gallstones or wall thickening seen. Spleen: Spleen is borderline normal measuring 12). There is a small accessory splenule inferior to the hilum GI tract: There is moderate scattered stool, diverticuli and gas seen throughout the colon without significant distention or diverticulitis. The small bowel loops is nondistended and appears unremarkable. There is diffuse ascites. Scratch that Lymphovascular structures: Abdominal aorta is normal caliber. There are small bilateral retroperitoneal shotty lymph nodes. Prominent collateral vessels are seen in the upper abdomen. Pelvis: The bladder is distended without radiopaque calculi or bladder wall thickening. There is slightly high density urine noted in the bladder measuring 26 Hounsfield units. There is diffuse pelvic ascites. IMPRESSION: ?No acute cardiopulmonary process seen in the chest. ?Cirrhosis with diffuse ascites and prominent collateral vessels likely varicose veins in the upper abdomen. 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 If needs a place will stay with sister. 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 Cognitive needs: No Hearing needs: No Vision needs: No Review of Systems Const All systems reviewed & are unremarkable except as noted in HPI and below Physical Exam Vital Signs: Last Vital Signs Pulse 99 05/20/24 12:22 BP 146/80 H 05/20/24 12:22 BMI result Body Mass Index 24.8 Const General: no acute distress Nutritional Appearance: average body habitus Orientation/consciousness: patient oriented x3 Limitations: no limitations HEENT Head: Yes normal to inspection Ears: hearing grossly normal bilaterally Mouth: Normal oral and palatal mucosa present Teeth and gingiva: poor dentition Eyes Sclerae: sclerae normal Pupils: Equal, round and reactive pupils present Neck Neck: Yes normal visual inspection Chest Chest palpation & inspection: normal inspection of the chest Resp Effort & Inspection: normal respiratory effort Auscultation: clear to auscultation bilaterally Cardio Palpation: normal PMI Rate: regular rate Rhythm: regular rhythm Heart sounds: S1 normal heart sound present, S2 normal heart sound present and no murmurs GI Inspection: Yes distended (due to ascites) Palpation (GI): Soft to palpation, nontender and No hepatosplenomegaly present Auscultation: normal bowel sounds Rectal Exam - Male: Yes deferred Skin General skin exam: no rashes or lesions noted and spider nevi Neuro General: patient oriented x3, gait normal and moves all extremities Cranial nerves: Yes Equal, round and reactive pupils present Psych Appearance: grossly normal Mental Status: mental status grossly normal Assessment & Plan Assessment & Plan (1) Low vitamin D level: Code(s): R79.89 - Other specified abnormal findings of blood chemistry Category: Medical (2) SBP (spontaneous bacterial peritonitis): Code(s): K65.2 - Spontaneous bacterial peritonitis Category: Medical (3) Elevated LFTs: Code(s): R79.89 - Other specified abnormal findings of blood chemistry Category: Medical (4) Esophageal and gastric varices: Code(s): I85.00 - Esophageal varices without bleeding; I86.4 - Gastric varices Category: Medical (5) Peptic ulcer disease: Code(s): K27.9 - Peptic ulcer, site unspecified, unspecified as acute or chronic, without hemorrhage or perforation Category: Medical (6) Chronic hepatitis C virus genotype 1b infection: Code(s): B18.2 - Chronic viral hepatitis C Category: Medical (7) Liver cirrhosis: Code(s): K74.60 - Unspecified cirrhosis of liver Category: Medical (8) Ascites: Code(s): R18.8 - Other ascites Category: Medical Plan 73 YM admitted to [facility] in October, for an elevated blood sugar and right lower extremity rash for 3 to 4 days.? Pt reported progressive abdominal distension for the past 2-3 yrs, early satiety and intermittent rectal bleeding (which he attributed to hemorrhoids) He gave a hx of wt loss of 20 lbs over the past 6 months (from 160 to 140 lbs). He denied ETOH abuse Abd CT scan showed Cirrhosis with diffuse ascites and prominent collateral vessels likely varicose veins in the upper abdomen. 11/18/22 Labs showed positive Hep C ab TIP, Anti dsDNA, AMA, ASMA, SPEP, celiac serologies were negative Iron studies were consistent with anemia of chronic disease. Hepatitis C genotype was 1b and cryoglobulins were negative MELD score was 9 REDUCING THE RISK OF LIVER PROGRESSION: patient was advised to completely avoid use of alcohol Pt referred to [facility] Hep[facility]ology for Hep C treatment and has not been seen at [facility] since he has been on the road. (Called [facility] and they stated they have reached out several times to the patient but never got an answer or call back) HCC SURVEILLANCE: the patient is at risk of developing hepatocellular carcinoma given the presence of cirrhosis and need 6 monthly imaging surveillance with either abdominal ultrasound (US) or multiphase cross-sectional imaging (CT or MRI). Last Abd CT in 10/2022 and US in 10/2023 had shown no focal liver lesions suspicious of HCC. He will be scheduled for follow-up liver ultrasound for ongoing surveillance. VACCINATIONS: Pt does not have serological evidence of prior exposure to or vaccination against hepatitis B or Hep A - GI RN to give 1st dose of Hep A and Hep B vaccine today Pt completed Hep A and B vaccination Patient should also remain up-to-date with all age-appropriate vaccinations including vaccination against pneumococcus. Since pt does not have a PCP, he was advised to establish care with a PCP.. SURVEILLANCE FOR GASTROESOPHAGEAL VARICES: Schedule EGD for FU of esophageal and gastric varices - scheduled on 05/24/24. QUESTION OF LIVER TRANSPLANTATION: As pt has a MELDNa score of 13, Pt has been referred to [facility] Hepatology clinic for Hep C treatment Pt referred to the Hepatology clinic at [facility] for evaluation for OLT prior to initiating Hep C treatment (likely with Epclusa + Ribavarin) since he is at risk for worsening of liver disease with Hepatitis C treatment. 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 New referral sent and pt advised to make sure he follows up so decision can be made regarding Hep C treatment versus OLT 05/10/24 Notes wt gain with increased abd distension - advised to increase Furosemide to 40 mg twice a day (from 20 mg twice daily) and add spironolactone 50 mg daily Schedule abd US and therapeutic paracentesis. Has not scheduled an appt at [facility] since he has been on the road. EGD scheduled on 05/24/24 for FU of varices GI FU scheduled on 06/10/24 Orders: Orders US abdomen limited 05/20/24 K74.60 - Unspecified cirrhosis of liver US paracentesis abd w/image 05/20/24 R18.8 - Other ascites Medications: New furosemide 40 mg PO BID 90 days 180 tabs 1RF spironolactone 50 mg PO QAM 30 days 30 tabs 3RF R18.8 - Other ascites Refilled furosemide 20 mg PO BID 90 days 180 tabs 1RF K74.60 - Unspecified cirrhosis of liver carvedilol 3.125 mg PO Q12H 30 days 60 tabs 3RF I85.00 - Esophageal varices without bleeding, I86.4 - Gastric varices Coding Level of Care Code Est Pt Level 4 (51761) Complex EM visit Add On G2211 Diagnoses Low vitamin D level R79.89 SBP (spontaneous bacterial peritonitis) K65.2 Elevated LFTs R79.89 Esophageal and gastric varices I85.00; I86.4 Peptic ulcer disease K27.9 Chronic hepatitis C virus genotype 1b infection B18.2 Liver cirrhosis K74.60 Ascites R18.8 Time Spent (min) 23
[2024-05-20 12:22] VITALS: BP 146/80; PULSE 99; BMI 24.8
--- OUTSIDE RECORDS SUMMARY | 2024-05-20 14:33 | XMS_ITS | Data Portability ---
Author Organization [place] [facility] Address [address] [place] [address] Assessment No assessment recorded. Plan of Treatment Reminders Order Date Submit Date Provider Last Modified By Organization Details Last Modified Time Details Appointments None record ed. Lab None record ed. Referral None record ed. Procedures None record ed. Surgeries None record ed. Imaging None record ed. Medication Orders None record ed. Patient TargetsNo targets recorded. Patient InstructionsNo instructions recorded. Reason for Referral None Reported. Medical Equipment None Reported. Vitals None Recorded Social History None recorded. Functional Status None recorded. Mental Status None recorded. Family History Nothing Reported. Medical History No medical history recorded. Past Encounters Encounter ID Performer Location Encounter Start Date Encounter Closed Date Diagnosis/Indication Diagnosis SNOMED-CT Code Diagnosis ICD10 Code Diagnosis Note [id number] SARA BONILLA NP [address] [place] [address] 10/29/2019 13:06:04 10/29/2019 13:18:03 [id number] Delgado Ponce MD [facility] [address] [place] [address] 10/20/2020 13:43:00 10/20/2020 14:08:39 [id number] Delgado Ponce MD [facility] [address] [place] [address] 10/19/2021 10:34:30 10/25/2021 09:02:48 Health Concerns Section Related Observation LastModified by Organization Detai ls LastModified Time None Recorded Concern Status LastModified by Organization Details LastModified Time None Recorded Advance Directives Directive None Recorded Payers Encounter Date Sequence Insurance Name Policy Number Policy Haque Covered Member ID Haque Member ID Guarantor Name 10/29/2019 1 *SELF PAY* [facility] 10/20/2020 1 *SELF PAY* [employer] [facility] Vick 10/19/2021 1 *SELF PAY* [employer] [facility] Vick
== END 2024-05-20 13:23 | disposition home or self-care (01) ==
PROVIDERS: PCP Family Medicine; Visit Provider Internal Medicine Gastroenterology
DX: R79.89 Other specified abnormal findings of blood chemistry (principal); K65.2 Spontaneous bacterial peritonitis; I85.00 Esophageal varices without bleeding; I86.4 Gastric varices; K27.9 Peptic ulcer, site unspecified, unspecified as acute or chronic, without hemorrhage or perforation; B18.2 Chronic viral hepatitis C; K74.60 Unspecified cirrhosis of liver; R18.8 Other ascites
CPT/HCPCS: 99214; G2211

== ENCOUNTER → 2024-05-20 12:12 | Outpatient (BNVA) | payer MEDICARE, SELFPAY | PROVIDERS: PCP Family Medicine; Visit Provider Internal Medicine Gastroenterology | DX: B18.2 Chronic viral hepatitis C (principal); K65.2 Spontaneous bacterial peritonitis; K27.9 Peptic ulcer, site unspecified, unspecified as acute or chronic, without hemorrhage or perforation; K74.60 Unspecified cirrhosis of liver; R79.89 Other specified abnormal findings of blood chemistry; R18.8 Other ascites; I85.00 Esophageal varices without bleeding; I86.4 Gastric varices | CPT/HCPCS: 99212 ==

== ENCOUNTER 2024-05-24 07:21 | Day surgery (SDC) | payer MEDICARE, SELFPAY ==
--- NOTE | 2024-05-21 09:56 | HO.ANESPROP2 ---
Documented by User: Oriana Ponce NP 05/21/24 09:58 HPI - Anesthesia Eval Consult details Narrative: 73yo M for Upper Endoscopy Cirrhosis with ascites and thrombocytopenia PMFSH Active Problems Active Problems: All Active Problems Ascites (Acute) Low vitamin D level (Acute) SBP (spontaneous bacterial peritonitis) (Acute) Laboratory exam ordered as part of routine general medical examination (Acute) Smoker (Acute) Elevated LFTs (Acute) Esophageal and gastric varices (Acute) Peptic ulcer disease (Acute) Chronic hepatitis C virus genotype 1b infection (Acute) Thrombocytopenia (Acute) Newly diagnosed diabetes (Acute) Cellulitis of right leg (Acute) Liver cirrhosis (Acute) Hepatitis C (Acute) Diabetes (Acute) Past Medical History Medical History (Updated 05/20/24 @ 12:54 by Malia Krueger MD) Hepatitis B Cellulitis Liver cirrhosis Diabetes Thrombocytopenia Hepatitis C Family History Family history of problems with anesthesia: No Surgical History Surgical History Hx of colonoscopy Hx of bilateral cataract extraction Hx of esophagogastroduodenoscopy History of abdominal paracentesis History of Problems with Anesthesia: No Social History Social History Household Members: None Housing: Other 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 If needs a place will stay with sister. 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 Cognitive needs: No Hearing needs: No Vision needs: No Meds Allergies Allergy/AdvReac Type Severity Reaction Status Date / Time No Known Allergies Allergy Verified 05/20/24 12:21 Home Medications ?Medication ?Instructions ?Recorded ?Confirmed ?Last Taken ?Type magnesium 02/28/23 05/20/24 02/27/23 History Exam Pertinent Lab Results Pertinent Lab Results: Laboratory Tests 08/14/23 01/02/24 10:19 10:44 WBC 6.4 Hgb 12.3 L Hct 35.7 L Plt Count 92 L Sodium 143 Potassium 4.8 Chloride 110 H Carbon Dioxide 28 BUN 11 Creatinine 0.81 Narrative Narrative: US abdomen limited 10/2023 IMPRESSION: 1. Coarse, heterogeneous hepatic echotexture with nodular hepatic margin compatible with given history of cirrhosis. Limited visualization. Moderate amount of ascites noted adjacent to the liver. 2. Gallbladder wall appears edematous with gallbladder wall thickening of 8 mm. No gallstones appreciated. 3. Right renal cysts with benign features. There is no specific indication for additional imaging. Assessment and Plan Assessment Anesthesia Assessment: Chart Reviewed Final Anesthetic Review Family History of Problems with Anesthesia: No History of Problems with Anesthesia: No Documented by User: Bar Mcmahon MD 05/24/24 09:28 [facility] Past Medical History Medical History (Updated 05/20/24 @ 12:54 by Malia Krueger MD) Hepatitis B Cellulitis Liver cirrhosis Diabetes Thrombocytopenia Hepatitis C Surgical History Surgical History Hx of colonoscopy Hx of bilateral cataract extraction Hx of esophagogastroduodenoscopy History of abdominal paracentesis Social History Social History Household Members: None Housing: Other 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 If needs a place will stay with sister. 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 Cognitive needs: No Hearing needs: No Vision needs: No Meds Allergies Allergy/AdvReac Type Severity Reaction Status Date / Time No Known Allergies Allergy Verified 05/20/24 12:21 Home Medications ?Medication ?Instructions ?Recorded ?Confirmed ?Last Taken ?Type magnesium 02/28/23 05/20/24 02/27/23 History Exam Airway Mallampati Class: II Neck ROM: Full Denture: Upper Assessment and Plan Assessment Anesthesia Assessment: Anesthesia Plan Discussed Final Anesthetic Review NPO: Yes ASA Class: III Final Preanesthetic Review: No Changes in Pt Med Stat, Meds/Allgs Chart Reviewed, Consent Obtained/Reviewed, Anes Risks/Benef Reviewed and DNR Form (If Appl.) Patient Risk: High Procedure Risk: Intermediate Anesthetic Plan Anesthetic Plan: TIVA Disposition: Standard PACU
--- OUTSIDE RECORDS SUMMARY | 2024-05-24 07:24 | XMS_ITS | Data Portability ---
Author Organization [place] [facility] Address [address] [place] [address] Assessment No assessment recorded. Plan of Treatment [...] SNOMED-CT Code Diagnosis ICD10 Code Diagnosis Note [id number] SARA BONILLA NP [address] [place] [address] 10/29/2019 13:06:04 10/29/2019 13:18:03 [id number] Delgado Ponce MD [facility] [address] [place] [address] 10/20/2020 13:43:00 10/20/2020 14:08:39 [id number] Delgado Ponce MD [facility] [address] [place] [address] 10/19/2021 10:34:30 10/25/2021 09:02:48 Health Concerns [...]
--- NOTE | 2024-05-24 08:31 | MHC.SHP ---
Pre-Procedural Eval Section A - 24 Hr Update-Section A only Date of Service: 05/24/24 The patient is an INPATIENT: No Changes since office visit: Yes Patient answered all questions; No Cold of Flu in the past 2 weeks, No New Medical Problems and No Changes in Medication The patient has been examined within 24 hours of the surgical procedure. The History & Physical has been completed within 30 days and I have reviewed it.: Yes Section B - Complete if H&P > 30 days Chief Complaint: FU of esophageal varices Allergies: Allergies Allergy/AdvReac Type Severity Reaction Status Date / Time No Known Allergies Allergy Verified 05/20/24 12:21 Plan Diagnosis/Plan: Unchanged I have reviewed the history and physical and performed a pertinent physical examination on my patient. No changes have occurred unless specified. Time Spent With Patient Time: Total time managing care of this patient today ____ minutes.
[2024-05-24 08:42] VITALS: BP 157/78; PULSE 82; RESP 16; TEMP 36.7; O2SAT 97; BMI 24.1
[2024-05-24 08:56] LABS: Hemoglobin 11.1 g/dl (14.0-18.0); Mean Corpuscular HGB Conc 33.6 g/dl (31.0-36.0); Mean Corpuscular Hemoglobin 35.8 pg (27.0-33.0); Mean Corpuscular Volume 106.5 fL (80.0-98.0); Red Cell Distribution Width 14.3 % (11.0-16.0); White Blood Count 6.8 X10*3/uL (4.8-10.8)
[2024-05-24] MEDS: Lactated Ringers 1,000 ML 100 ML IVCONT (08:56)
[2024-05-24 08:58] LABS: Glucose, Whole Blood 111 mg/dL (60-115)
[2024-05-24 08:58] LABS: Platelet Count 92 X10*3/uL (160-400)
[2024-05-24 09:00] LABS: INTERNATIONAL NORM RATIO 1.4 (0.9-1.1)
[2024-05-24] MEDS: Ampicillin Sodium 2 GM in 0.9 % Sodium Chloride 100 ML IV (09:08)
[2024-05-24 09:23] LABS: Anion Gap 9 (12-20); Blood Urea Nitrogen 10 mg/dL (9-16); Calcium 7.9 mg/dL (8.4-10.2); Carbon Dioxide 24 mmol/L (22-29); Chloride 113 mmol/L (96-108); Creatinine Clr Calc Pharmacy 86.3; Estimated Glomerular Filt Rate > 60; Glucose Random 111 mg/dL (60-115); Potassium 5.1 mmol/L (3.3-5.1); Sodium 141 mmol/L (135-145)
--- NOTE | 2024-05-24 09:28 | W.PM.OPN ---
Operative Note Operative Note Date of Service: 05/24/24 Narrative: FLEXIBLE TRANSORAL UPPER GASTROINTESTINAL ENDOSCOPY WITH BIOPSIES AND BAND LIGATION OF ESOPHAGEAL VARICES Pre-op diagnosis: Cirrhosis - FU of esophageal varices Post-op diagnosis: Esophageal varices, Gastric varix, portal gastropathy, duodenal erosions Endoscopist:? Malia Krueger MD Anesthesia:?MAC UPPER ENDOSCOPY Consent: Indications for the procedure and potential complications of bleeding, perforation, reaction to medications and missed diagnosis were discussed with the patient and informed consent was obtained. Instrument: Olympus GIF H 190 mid size upper endoscope Monitoring: Vital signs and clinical assessment, continuous EKG monitoring, Pulse oximetry, Carbon Dioxide monitoring and blood pressure monitoring were done throughout the procedure. Procedure: The patient was placed in the left lateral decubitis position and pre-procedure medications were administered and a bite block was placed. The endoscope was inserted into the mouth and advanced under direct vision to the third part of duodenum. A careful inspection was made as the upper endoscope was withdrawn including a retroflexed examination of the proximal stomach; Findings and interventions are described below. Findings: Larynx: Normal Esophagus: GE junction at 40 cms. Grade 2 to 3 four column non-bleeding varices from 32 to 40 cms with red laura signs. Band ligation of varices was performed and three bands were placed with complete flattening of varices. Stomach: Moderate portal hypertensive gastropathy. A 1.5 cms varix in the gastric fundus without high risk stigmata for bleeding. Biopsies were obtained from the antrum to check for Helicobacter pylori Grade 2 flap valve on retroflexed examination of the cardia. Duodenum: A few superficial erosions and 7-8 mm nonbleeding ulcers in the bulb and normal descending duodenum Intervention: Biopsies and band ligation of esophageal varices as noted above Impression and Post Procedure Diagnosis: Endoscopy Findings: ESOPHAGUS: Non-bleeding varices from 32 to 40 cms with red laura signs.- status post band ligation x 3 STOMACH: Moderate portal hypertensive gastropathy. A 1.5 cms varix in the gastric fundus without high risk stigmata for bleeding. DUODENUM: A few superficial erosions and 7-8 mm nonbleeding ulcers in the bulb Plan: Pt has a FU appointment on 06/10/[address] Krueger. Repeat EGD in 4 to 6 months for FU of esophageal varices. Above findings were reviewed with the patient and relevant handouts were given and the discharge area.
[2024-05-24 09:59] VITALS: BP 137/85; PULSE 90; RESP 17; TEMP 36.2; O2SAT 96
[2024-05-24 10:14] VITALS: BP 137/85; PULSE 85; RESP 16; O2SAT 95
[2024-05-24 10:28] VITALS: BP 158/92; PULSE 72; RESP 16; TEMP 36.2; O2SAT 96
[2024-05-24 11:09] LABS: Alanine Aminotransferase 41 U/L (0-40); Albumin Level 2.4 g/dL (3.5-5.0); Alkaline Phosphatase 110 U/L (39-117); Aspartate Amino Transferase 83 U/L (5-37); Bilirubin Direct 0.8 mg/dL (0.0-0.5); Bilirubin Total 2.3 mg/dL (0.0-1.0); Total Protein 6.7 g/dL (6.5-8.0)
[2024-05-26 19:38] LABS: HepC Viral Load 505000 IU/mL (NOT DETECTED)
== END 2024-05-24 11:08 | disposition home or self-care (01) ==
PROVIDERS: PCP Family Medicine; Visit Provider Internal Medicine Gastroenterology
PROC: 0DJ08ZZ Inspection of Upper Intestinal Tract, Via Natural or Artificial Opening Endoscopic (ICD-10-PCS; CPT 43235; principal; 2024-05-24 09:20)
DX: I85.00 Esophageal varices without bleeding (principal); I86.4 Gastric varices; K26.7 Chronic duodenal ulcer without hemorrhage or perforation; K76.6 Portal hypertension; K31.89 Other diseases of stomach and duodenum; K65.2 Spontaneous bacterial peritonitis; K74.60 Unspecified cirrhosis of liver; R18.8 Other ascites; B18.2 Chronic viral hepatitis C; B19.10 Unspecified viral hepatitis B without hepatic coma; E11.9 Type 2 diabetes mellitus without complications; R79.89 Other specified abnormal findings of blood chemistry; D69.6 Thrombocytopenia, unspecified; Z79.84 Long term (current) use of oral hypoglycemic drugs; Z79.899 Other long term (current) drug therapy; F17.210 Nicotine dependence, cigarettes, uncomplicated
CPT/HCPCS: 43244; 43239; 36415; 80048; 80076; 82947; 85027; 85610; 87522; 88305; 88313; 88342; J0290; J2003; J2704

== ENCOUNTER → 2024-05-24 07:21 | Outpatient (BNV) | payer MEDICARE, SELFPAY | PROVIDERS: PCP Family Medicine; Visit Provider Internal Medicine Gastroenterology | DX: I85.00 Esophageal varices without bleeding (principal); K31.89 Other diseases of stomach and duodenum; K26.9 Duodenal ulcer, unspecified as acute or chronic, without hemorrhage or perforation | CPT/HCPCS: 43239; 43244 ==

== ENCOUNTER 2024-06-01 07:58 | Day surgery (SDC) | payer MEDICARE, SELFPAY ==
[2024-06-01] VITALS (10 sets, daily range): BP systolic 141–168; BP diastolic 74–95; PULSE 76–94; RESP 12–18; TEMP 36.1–36.4; O2SAT 95–98; BMI 24.7
--- NOTE | ~2024-06-01 | US_ITS ---
Ultrasound paracentesis History: Ascites. Risks and benefits and possible complications were discussed with the patient and consent form was signed. A safe pocket of ascitic fluid was identified using ultrasound guidance, and the overlying skin was marked. The abdomen prepped and draped in sterile fashion. 1% lidocaine was used as a local anesthetic. Using ultrasound guidance, a 5 fr catheter was placed into the ascitic pocket. 7.3 liters of yellow fluid was removed passively. The catheter was then removed. A few floor representative images from before and after the examination were obtained. The procedure was performed by Kristopher Tatum PA-C and supervised by Dr. Gottlieb. US/US paracentesis abd w/image Impression: Ultrasound-guided paracentesis as described above. No immediate complications Electronically signed by: Mike Gottlieb MD 06/08/2024 04:51 PM [facility]CIAN[facility] BROWN
--- OUTSIDE RECORDS SUMMARY | 2024-06-01 08:01 | XMS_ITS | Data Portability ---
Author Organization [place] [facility] Address [address] [place] [address] Assessment No assessment recorded. Plan of Treatment [...] SNOMED-CT Code Diagnosis ICD10 Code Diagnosis Note [id number] SARA BONILLA NP [address] [place] [address] 10/29/2019 13:06:04 10/29/2019 13:18:03 [id number] Delgado Ponce MD [facility] [address] [place] [address] 10/20/2020 13:43:00 10/20/2020 14:08:39 [id number] Delgado Ponce MD [facility] [address] [place] [address] 10/19/2021 10:34:30 10/25/2021 09:02:48 Health Concerns [...]
[2024-06-01 09:16] LABS: Glucose, Whole Blood 134 mg/dL (60-115)
[2024-06-01] MEDS: Albumin Human 25 % 100 ML 200 ML IV ×2 (10:00→10:30)
[2024-06-01] MEDS: Lidocaine HCl 1 % MPF 5 ML VIAL SUBCUT (10:37)
[2024-06-01 11:27] LABS: MN% 84.8 %; PMN% 15.2 %; RBC Peritoneal Fluid 0.002 X10*6/uL; WBC Peritoneal Fluid 0.198 X10*3/uL
[2024-06-01 12:04] LABS: Lymphocyte Peritoneal Fl 64 %; Monocytes Peritoneal Fl 6 %; Neutrophils Peritoneal Fluid 15 %; Other Peritioneal Fl 15 %
[2024-06-01 12:05] LABS: BF Shift QC OK YES
[2024-06-03 08:46] LABS: Albumin Peritoneal Fluid 0.5
== END 2024-06-01 11:11 | disposition home or self-care (01) ==
PROVIDERS: Physician Assistant Surgical; PCP Family Medicine; Visit Provider Internal Medicine Gastroenterology
DX: R18.8 Other ascites (principal); R14.0 Abdominal distension (gaseous); K74.60 Unspecified cirrhosis of liver; B18.2 Chronic viral hepatitis C; K65.2 Spontaneous bacterial peritonitis; K27.9 Peptic ulcer, site unspecified, unspecified as acute or chronic, without hemorrhage or perforation; E11.9 Type 2 diabetes mellitus without complications; E55.9 Vitamin D deficiency, unspecified; D69.6 Thrombocytopenia, unspecified; L03.115 Cellulitis of right lower limb; Z79.899 Other long term (current) drug therapy; Z79.84 Long term (current) use of oral hypoglycemic drugs; Z80.0 Family history of malignant neoplasm of digestive organs; F17.210 Nicotine dependence, cigarettes, uncomplicated
CPT/HCPCS: 49083; 82042; 82947; 89051; J2003; P9047

== ENCOUNTER → 2024-06-01 09:45 | Outpatient (BNV) | payer MEDICARE, SELFPAY | PROVIDERS: PCP Family Medicine; Visit Provider Physician Assistant Surgical | DX: R18.8 Other ascites (principal) | CPT/HCPCS: 49083 ==

== ENCOUNTER 2024-06-07 10:24 | Outpatient (REF) | payer MEDICARE, SELFPAY ==
--- NOTE | ~2024-06-07 | US_ITS ---
CLINICAL HISTORY: K74.60 - Unspecified cirrhosis of liver Exam: 1. Ultrasound of the right upper quadrant of the abdomen. 2. Duplex ultrasound of the main portal vein. Comparison: None. Findings: Liver is diminutive in size measuring 13 cm in long axis. Coarse heterogeneous echotexture throughout the liver with extensive peripheral nodularity. No discrete mass lesion identified. There is no intrahepatic biliary ductal dilatation. Common bile duct is within normal limits. No stones are seen within the gallbladder. Gallbladder wall is thickened to 14 mm. Negative sonographic Castañeda's sign. Generalized increased echotexture throughout the pancreas without discrete mass or pancreatic ductal dilatation. Right kidney measures 10.7 cm in long axis. Simple cysts within the right kidney measure up to 4.9 cm in size. No hydronephrosis or solid mass lesion identified. Large volume ascites throughout the abdomen and pelvis. Duplex evaluation of the main portal vein was performed. This included real-time grayscale, color spectral Doppler analysis, and color Doppler flow imaging. Main portal vein is patent with hepatopetal flow. Recanalized paraumbilical vein was identified. Impression: 1. Cirrhotic liver with sequelae of portal hypertension including large volume ascites. 2. Prominent wall thickening of the gallbladder without stone disease. This is likely related to the patient's hepatic disease. However, clinical correlation advised to exclude the possibility of acalculous cholecystitis. 3. Patent hepatopetal flow within the main portal vein. This document has been electronically signed by: Victor Manuel Clark MD on 06/08/2024 07:12:14
--- OUTSIDE RECORDS SUMMARY | 2024-06-07 11:19 | XMS_ITS | Data Portability ---
Author Organization [place] [facility] Address [address] [place] [address] Assessment No assessment recorded. Plan of Treatment [...] SNOMED-CT Code Diagnosis ICD10 Code Diagnosis Note [id number] SARA BONILLA NP [address] [place] [address] 10/29/2019 13:06:04 10/29/2019 13:18:03 [id number] Delgado Ponce MD [facility] [address] [place] [address] 10/20/2020 13:43:00 10/20/2020 14:08:39 [id number] Delgado Ponce MD [facility] [address] [place] [address] 10/19/2021 10:34:30 10/25/2021 09:02:48 Health Concerns [...]
== END 2024-06-07 10:25 | disposition home or self-care (01) ==
LOC: HO.HMGCX 10:24
PROVIDERS: PCP Family Medicine; Visit Provider Internal Medicine Gastroenterology
DX: K74.60 Unspecified cirrhosis of liver (principal); K76.6 Portal hypertension; N32.9 Bladder disorder, unspecified
CPT/HCPCS: 76705

== ENCOUNTER → 2024-06-07 10:26 | Outpatient (BNV) | payer MEDICARE, SELFPAY | PROVIDERS: PCP Family Medicine; Visit Provider Radiology Diagnostic Radiology | DX: K74.60 Unspecified cirrhosis of liver (principal) | CPT/HCPCS: 76705 ==

== ENCOUNTER → 2024-06-10 10:00 | Outpatient (BNVA) | payer OTHER, SELFPAY | PROVIDERS: PCP Family Medicine; Visit Provider Family Medicine | DX: E11.9 Type 2 diabetes mellitus without complications (principal); I10 Essential (primary) hypertension | CPT/HCPCS: 83036 ==

== ENCOUNTER 2024-06-10 15:38 | Outpatient (AMB) | payer OTHER, SELFPAY ==
--- NOTE | 2024-06-10 15:58 | A.OFFPC_ITS ---
Vital Signs 06/10/24 16:08 Height 5 ft 11 in Weight 158 lb 2 oz BMI 22.1 BP 110/66 Blood Pressure Location Lt brachial Position Sitting Respiration 12 Pulse 63 Pulse Source Pulse Oximeter Temp 98.0 F Temp Source Oral Pulse Oximetry (%) 99 Oxygen Delivery Method Room Air Intake Visit Reasons: f/u Diabetes Intake Note: f/u DM Allergies No Known Allergies Allergy (Verified 06/10/24 16:06) Tobacco use date assessed: 10/27/23 Dental Screening Dental Screen Date: 05/01/23 HPI f/u Diabetes HPI Details 73 y/o male presents to f/u diabetes. A1c today 06/10/24 6.5%. He is on metformin 1000mg b.i.d. Blood pressure today 110/66, 63p. He is on carvedilol 3.125mg daily. HPI Comments History of Present Illness Details Documentation assistance for Bradley Stubbs MD, was provided by Hector Ruggiero,? Maintenance Custodian on 06/10/2024 at 4:38 PM EST. I, Dr. Stubbs, have read, observed, and verified documentation. 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 If needs a place will stay with sister. 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 Cognitive needs: No Hearing needs: No Vision needs: No Questionnaire Thrive Questionnaire Date Thrive assessed: 11/18/22 JOHN-7 AMB Questionnaire JOHN-7 Date JOHN - 7 assessed: 05/01/23 Source: Developed by Drs. John Guy, Dana Izquierdo, Cesario Live and colleagues, with an educational cristian from [employer]. Physical exam (Primary Care) Vital Signs: Last Vital Signs Temp 98.0 F 06/10/24 16:08 Pulse 63 06/10/24 16:08 Resp 12 06/10/24 16:08 BP 110/66 06/10/24 16:08 Pulse Ox 99 06/10/24 16:08 Oxygen Delivery Method Room Air 06/10/24 16:08 BMI result Body Mass Index 22.1 Tobacco/Smoking Status: Tobacco use Status Tobacco use date assessed 10/27/23 06/10/24 15:59 Patient Tobacco Use Status Current someday Tobacco 06/10/24 15:59 Tobacco use type Cigarette 06/10/24 15:59 e-Cigarette/Vaping Use Never Used 06/10/24 15:59 Thrive Assessment: Date of Thrive Assessment Date Thrive assessed 11/18/22 06/10/24 15:59 Coding Diagnoses Diabetes E11.9 Hypertension I10 Assessment & Plan Assessment & Plan (1) Diabetes: Code(s): E11.9 - Type 2 diabetes mellitus without complications Category: Medical (2) Hypertension: Code(s): I10 - Essential (primary) hypertension Category: Medical
[2024-06-10 16:08] VITALS: BP 110/66; PULSE 63; RESP 12; TEMP 36.7; O2SAT 99; BMI 22.1
== END 2024-06-10 16:56 | disposition home or self-care (01) ==
PROVIDERS: PCP Family Medicine; Visit Provider Family Medicine
DX: E11.9 Type 2 diabetes mellitus without complications (principal)

== ENCOUNTER 2024-06-29 10:15 | Outpatient (AMB) | payer MEDICARE, SELFPAY ==
--- NOTE | 2024-06-29 10:30 | MHC.OFFVIS ---
Vital Signs 06/29/24 10:31 Height 5 ft 11 in Weight 142 lb BMI 19.8 BP 117/67 Blood Pressure Location Lt brachial Position Sitting Pulse 63 Pulse Oximetry (%) 96 Oxygen Delivery Method Room Air Intake Visit Reasons: EGD result Intake Note: Patient follow up for EGD post op and US result. Patient cc: Meteorological Observer Required: No Accompanied by: Self / Same As Patient Allergies No Known Allergies Allergy (Verified 11/04/24 10:16) Medication List - Last Reconciled 06/29/24 by Malia Krueger MD blood sugar diagnostic (FreeStyle Lite Strips) Test four times a day or as directed. blood-glucose meter (FreeStyle Lite Meter kit) As Directed carvedilol 3.125 mg PO Q12H 30 days furosemide 20 mg PO BID 90 days furosemide 40 mg PO BID 90 days lancets (FreeStyle Lancets) Test four times a day or as directed. [magnesium ] metformin 1,000 mg PO BID 30 days omeprazole 20 mg PO .daily 60 days spironolactone 50 mg PO QAM 30 days HPI HPI EGD result: Details: GI clinic visit for this 74 YM for follow-up of chronic hepatitis C and cirrhosis complicated by ascites and SBP MELD score was 9 TODAY'S VISIT: EGD results reviewed with the patient. 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 PAST VISITS: Patient cc abdominal pain with bloating, between diarrhea and constipation. Wt gain of 28 lbs over the past 4 months Notes worsening abdominal distension over the past few months Did not schedule an appt at [facility] since he has been on the road working Karsten presents in the office as a follow up EGD and COLO. CC: He states that he is here for the results. He has a sore on his leg that he would like you to look at. He stopped januvia due to them. He wants to know what you suggest that he do. He has an overactive digestive system and would like to know what the cause is. Questioning if he has Crohns Colitis. Main concern is what as should eat to have a good BM. EGD and colon results were reviewed with the patient Stopped taking Januvia on 12/29/23. Noted a rash with an ulcer on his right leg - clearing up since he stopped taking the Januvia Takes metformin. Can have diarrhea depending on his diet. Has not been back to work the month of December (sister cooks his meals) Diarrhea has been better since he has been taking home cooked meals Has not been seen at [facility] since he has been on the road. New referral sent and pt advised to make sure he follows up so decision can be made regarding Hep C treatment versus OLT Denies ETOH abuse. EGD results reviewed with the patient. Noted some throat pain after the procedure which resolved after 1 day. Denies abdominal distension Patient cc: diarrhea on and off, abdominal bloating. Denies any other GI issues. Has been doing ok since discharged Had Hep B in the mid s - from drinking out of a very dirty glass . Unsure how he acquired Hep C - denies IVDA or blood transfusion or exposure to anyone with Hep C. Appetite is good and abd distension has improved. Denies diarrhea, constipation or black stools. Notes rectal bleeding which is very rare. Patient denies symptoms of heartburn, dysphagia, nausea, vomiting, change in appetite or weight. Denies recent change in bowel habits, constipation, diarrhea, black stools or rectal bleeding. Patient denies major cardiac or pulmonary problems, loud snoring or sleep apnea Denies taking NSAIDS or being on chronic anticoagulation. Pt admits to smoking 1 PPD x 30-40 yrs and quitted recently He denies ETOH abuse Family hx is positive for Esophageal cancer in his Dad. Patient denies major cardiac or pulmonary problems, loud snoring or sleep apnea Denies problems with anesthesia in the past. Denies being on chronic anticoagulation. Patient denies known family history of colon polyps, colon cancer or other GI malignancies. LABS IN [facility] : Reviewed IMAGING STUDIES: 10/[address] SCAN SHOWED: No acute cardiopulmonary process seen in the chest. Cirrhosis with diffuse ascites and prominent collateral vessels likely varicose veins in the upper abdomen. Right renal cysts. ENDOSCOPIC STUDIES: 02/28/23 EGD SHOWED: ESOPHAGUS: Grade 2 to 3 four column non-bleeding varices from 32 to 40 cms with red laura signs. Band ligation of varices was performed and five bands were placed with flattening of varices. STOMACH: Moderate portal hypertensive gastropathy. Antral biopsies were obtained to check for H Pylori. A 2.5 cms non bleeding gastric varix in the fundus and grade 2 flap valve on retroflexed examination of the cardia. DUODENUM: Two 5 to 8 mm superficial non bleeding ulcers in the bulb Plan: Above findings were reviewed with the patient and Esophageal Varices and Esophageal Banding handouts were given in the discharge area. Pt was advised to start Omeprazole 20 mg daily for PUD and prophylaxis for banding ulcers. Repeat EGD in 3-4 months for FU of esophageal varices BIOPSIES SHOWED: Stomach, antrum, biopsy: Gastric antral mucosa within normal limits; negative for Helicobacter pylori, intestinal metaplasia and dysplasia PAST GI HISTORY BY REVIEW OF MEDICAL RECORDS: 11/17/22 Pt was seen during hospitalization at [facility]: 72 YM seen at [facility] ED on 11/16/22 for an elevated blood sugar and right lower extremity rash for 3 to 4 days.?Patient denies any past medical history he does not take any medicine.Pt reports having progressive abdominal distension for the past 2-3 yrs. He also notes early satiety and intermittent rectal bleeding (attributes to hemorrhoids) Pt reports a remote hx of having Hep B which resolved spontaneously. He gives a hx of constipation alternating with diarrhea. 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 States he has been donating his money to the [email or web address] He gives a hx of wt loss of 20 lbs over the past 6 mths (from 160 to 140 lbs). Pt denies having a colonoscopy in the past. Plan 72 YM seen at [facility] ED on 11/16/22 for an elevated blood sugar and right lower extremity rash for 3 to 4 days.?Pt reports having progressive abdominal distension for the past 2-3 yrs.He also notes early satiety and intermittent rectal bleeding (attributes to hemorrhoids) Pt reports a remote hx of having ?Hep B which resolved spontaneously. He gives a hx of wt loss of 20 lbs over the past 6 mths (from 160 to 140 lbs). He denies ETOH abuse Abd CT scan showed?Cirrhosis with diffuse ascites and prominent collateral vessels likely varicose veins in the upper abdomen. MELD score is 9 Etiology of cirrhosis is unclear - possibly viral hepatitis, hemochromatosis, SWENSON, autoimmune hepatitis, celiac disease RECOMMENDATIONS: 1.? Check TIP, Anti dsDNA, AMA, ASMA, SPEP, celiac serologies - added to am labs 2.? US guided paracenteses and send ascitic fluid for cell count, albumin, protein and amylase 11/18/22 Labs showed positive Hep C abAdvise checking Hep C viral load, genotype and cryoglobulins to determine if pt has active Hep C and needs treatment. 11/16/22 ABD & PELVIC CT SCAN SHOWED:Liver, ducts and gallbladder: The liver is homogeneous in density,lobulated contour and normal size. There is diffuse ascites. No radiopaque gallstones or wall thickening seen. Spleen: Spleen is borderline normal measuring 12). There is a small accessory splenule inferior to the hilum GI tract: There is moderate scattered stool, diverticuli and gas seen throughout the colon without significant distention or diverticulitis. The small bowel loops is nondistended and appears unremarkable. There is diffuse ascites. Scratch that Lymphovascular structures: Abdominal aorta is normal caliber. There are small bilateral retroperitoneal shotty lymph nodes. Prominent collateral vessels are seen in the upper abdomen. Pelvis: The bladder is distended without radiopaque calculi or bladder wall thickening. There is slightly high density urine noted in the bladder measuring 26 Hounsfield units. There is diffuse pelvic ascites. IMPRESSION: ?No acute cardiopulmonary process seen in the chest. ?Cirrhosis with diffuse ascites and prominent collateral vessels likely varicose veins in the upper abdomen. 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 If needs a place will stay with sister. 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 Cognitive needs: No Hearing needs: No Vision needs: No Review of Systems Const All systems reviewed & are unremarkable except as noted in HPI and below Physical Exam Vital Signs: Last Vital Signs Pulse 63 06/29/24 10:31 BP 117/67 06/29/24 10:31 Pulse Ox 96 06/29/24 10:31 Oxygen Delivery Method Room Air 06/29/24 10:31 BMI result Body Mass Index 19.8 Const General: no acute distress Nutritional Appearance: average body habitus Orientation/consciousness: patient oriented x3 Limitations: no limitations HEENT Head: Yes normal to inspection Ears: hearing grossly normal bilaterally Mouth: Normal oral and palatal mucosa present Teeth and gingiva: poor dentition Eyes Sclerae: sclerae normal Pupils: Equal, round and reactive pupils present Neck Neck: Yes normal visual inspection Chest Chest palpation & inspection: normal inspection of the chest Resp Effort & Inspection: normal respiratory effort Auscultation: clear to auscultation bilaterally Cardio Palpation: normal PMI Rate: regular rate Rhythm: regular rhythm Heart sounds: S1 normal heart sound present, S2 normal heart sound present and no murmurs GI Inspection: Yes distended (due to ascites) Palpation (GI): Soft to palpation, nontender and No hepatosplenomegaly present Auscultation: normal bowel sounds Rectal Exam - Male: Yes deferred Skin General skin exam: no rashes or lesions noted and spider nevi Neuro General: patient oriented x3, gait normal and moves all extremities Cranial nerves: Yes Equal, round and reactive pupils present Extrem General: No pedal edema (1+ pitting edema) Psych Appearance: grossly normal Mental Status: mental status grossly normal Assessment & Plan Assessment & Plan (1) Chronic hepatitis C virus genotype 1b infection: Code(s): B18.2 - Chronic viral hepatitis C Category: Medical (2) Hepatitis C: Code(s): B19.20 - Unspecified viral hepatitis C without hepatic coma Category: Medical (3) Liver cirrhosis: Code(s): K74.60 - Unspecified cirrhosis of liver Category: Medical (4) Ascites: Code(s): R18.8 - Other ascites Category: Medical Plan 74 YM admitted to [facility] [place] in October, for an elevated blood sugar and right lower extremity rash for 3 to 4 days.? Pt reported progressive abdominal distension for the past 2-3 yrs, early satiety and intermittent rectal bleeding (which he attributed to hemorrhoids) He gave a hx of wt loss of 20 lbs over the past 6 months (from 160 to 140 lbs). He denied ETOH abuse Abd CT scan showed Cirrhosis with diffuse ascites and prominent collateral vessels likely varicose veins in the upper abdomen. 11/18/22 Labs showed positive Hep C ab TIP, Anti dsDNA, AMA, ASMA, SPEP, celiac serologies were negative Iron studies were consistent with anemia of chronic disease. Hepatitis C genotype was 1b and cryoglobulins were negative MELD score was 9 REDUCING THE RISK OF LIVER PROGRESSION: patient was advised to completely avoid use of alcohol Pt referred to [facility] for Hep C treatment and has not been seen at [facility] since he has been on the road. (Called [facility] and they stated they have reached out several times to the patient but never got an answer or call back) HCC SURVEILLANCE: the patient is at risk of developing hepatocellular carcinoma given the presence of cirrhosis and need 6 monthly imaging surveillance with either abdominal ultrasound (US) or multiphase cross-sectional imaging (CT or MRI). Last Abd CT in 10/2022 and US in 10/2023 had shown no focal liver lesions suspicious of HCC. He will be scheduled for follow-up liver ultrasound for ongoing surveillance. VACCINATIONS: Pt does not have serological evidence of prior exposure to or vaccination against hepatitis B or Hep A - GI RN to give 1st dose of Hep A and Hep B vaccine today Pt completed Hep A and B vaccination Patient should also remain up-to-date with all age-appropriate vaccinations including vaccination against pneumococcus. Since pt does not have a PCP, he was advised to establish care with a PCP.. SURVEILLANCE FOR GASTROESOPHAGEAL VARICES: Schedule EGD for FU of esophageal and gastric varices - scheduled on 05/24/24. QUESTION OF LIVER TRANSPLANTATION: As pt has a MELDNa score of 13, Pt has been referred to [facility] clinic for Hep C treatment Pt referred to the Hepatology clinic at [facility] for evaluation for OLT prior to initiating Hep C treatment (likely with Epclusa + Ribavarin) since he is at risk for worsening of liver disease with Hepatitis C treatment. 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 New referral sent and pt advised to make sure he follows up so decision can be made regarding Hep C treatment versus OLT 05/10/24 Notes wt gain with increased abd distension - advised to increase Furosemide to 40 mg twice a day (from 20 mg twice daily) and add spironolactone 50 mg daily Schedule abd US and therapeutic paracentesis. Has not scheduled an appt at [facility] since he has been on the road. 05/24/24 EGD SHOWED: ESOPHAGUS: Non-bleeding varices from 32 to 40 cms with red laura signs.- status post band ligation x 3 STOMACH: Moderate portal hypertensive gastropathy. A 1.5 cms varix in the gastric fundus without high risk stigmata for bleeding. DUODENUM: A few superficial erosions and 7-8 mm nonbleeding ulcers in the bulb Plan: Repeat EGD in 4 to 6 months for FU of esophageal varices. 06/29/24 Had a therapeutic paracentesis on 06/01 and 7.5 litres of fluid was removed Denies recurrent abd distension since New referral sent to [facility] since pt expressed willingness to be seen at [facility] to initiate hep C treatment FU in 4 months Orders: Orders Complete Blood Count no Diff 06/29/24 R18.8 - Other ascites Blood Urea Nitrogen 06/29/24 R18.8 - Other ascites Creatinine 06/29/24 R18.8 - Other ascites Basic Metabolic Panel 06/29/24 R18.8 - Other ascites Referrals Gastroenterology Referral K74.60 - Unspecified cirrhosis of liver, B18.2 - Chronic viral hepatitis C, R18.8 - Other ascites Medications: New cholecalciferol (vitamin D3) 25 mcg PO DAILY 90 caps 0RF 90 days E55.9 - Vitamin D deficiency, unspecified Changed From spironolactone 50 mg PO QAM 30 days 30 tabs 3RF R18.8 - Other ascites To spironolactone 50 mg PO QAM 90 tabs 1RF 90 days R18.8 - Other ascites Refilled furosemide 40 mg PO BID 180 tabs 1RF 90 days Discontinued furosemide Discontinued Reason: Ancillary Entered New Order 20 mg PO BID 90 days 180 tabs 1RF K74.60 - Unspecified cirrhosis of liver Coding Level of Care Code Est Pt Level 4 (94629) Complex EM visit Add On G2211 Diagnoses Chronic hepatitis C virus genotype 1b infection B18.2 Hepatitis C B19.20 Liver cirrhosis K74.60 Ascites R18.8
[2024-06-29 10:31] VITALS: BP 117/67; PULSE 63; O2SAT 96; BMI 19.8
--- OUTSIDE RECORDS SUMMARY | 2024-06-29 12:24 | XMS_ITS | Data Portability ---
Author Organization [place] [facility] Address [address] [place] [address] Assessment No assessment recorded. Plan of Treatment [...] SNOMED-CT Code Diagnosis ICD10 Code Diagnosis Note [id number] SARA BONILLA NP [address] [place] [address] 10/29/2019 13:06:04 10/29/2019 13:18:03 [id number] Delgado Ponce MD [facility] [address] [place] [address] 10/20/2020 13:43:00 10/20/2020 14:08:39 [id number] Delgado Ponce MD [facility] [address] [place] [address] 10/19/2021 10:34:30 10/25/2021 09:02:48 Health Concerns [...] rafaela Vick 10/20/2020 1 *SELF PAY* [facility] 10/19/2021 1 *SELF PAY* [facility]
== END 2024-06-29 11:57 | disposition home or self-care (01) ==
PROVIDERS: PCP Family Medicine; Visit Provider Internal Medicine Gastroenterology
DX: B18.2 Chronic viral hepatitis C (principal); B19.20 Unspecified viral hepatitis C without hepatic coma; K74.60 Unspecified cirrhosis of liver; R18.8 Other ascites
CPT/HCPCS: 99499

== ENCOUNTER → 2024-06-29 10:15 | Outpatient (BNVA) | payer MEDICARE, SELFPAY | PROVIDERS: PCP Family Medicine; Visit Provider Internal Medicine Gastroenterology ==

== ENCOUNTER 2024-11-04 10:10 | Outpatient (REF) | payer MEDICARE, SELFPAY ==
[2024-11-04 11:46] LABS: MANUAL DIFF FLAG NO
[2024-11-04 12:40] LABS: Hematocrit 33.8 % (42.0-52.0); Hemoglobin 11.3 g/dl (14.0-18.0); Imm Gran Abs Auto 0.01 X10*3/uL (0.00-0.03); Imm Gran Pct Auto 0.2 % (0.0-0.4); Lymphocytes Absolute Auto 1.9 X10*3/uL (1.2-4.9); Mean Corpuscular HGB Conc 33.4 g/dl (31.0-36.0); Mean Corpuscular Hemoglobin 35.2 pg (27.0-33.0); Mean Corpuscular Volume 105.3 fL (80.0-98.0); NRBC Abs Auto 0.000 X10*3/uL (0.0-0.012); NRBC Pct Auto 0.0 /100WBC (0.0-0.2); Platelet Count 89 X10*3/uL (160-400); Red Blood Count 3.21 X10*6/uL (4.60-5.80); White Blood Count 5.3 X10*3/uL (4.8-10.8)
[2024-11-04 12:42] LABS: INTERNATIONAL NORM RATIO 1.3 (0.9-1.1); Prothrombin Time 14.8 SEC (10.9-12.4)
[2024-11-04 13:00] LABS: Hemoglobin A1C 140.6765 umol/L; Total Hemoglobin (HGBA1C) 3327.0886 umol/L
[2024-11-04 13:04] LABS: Alanine Aminotransferase 51 U/L (0-40); Albumin Level 2.7 g/dL (3.5-5.0); Alkaline Phosphatase 186 U/L (39-117); Anion Gap 7 (12-20); Aspartate Amino Transferase 67 U/L (5-37); Blood Urea Nitrogen 9 mg/dL (9-16); Calcium 8.3 mg/dL (8.4-10.2); Carbon Dioxide 29 mmol/L (22-29); Chloride 110 mmol/L (96-108); Estimated Glomerular Filt Rate > 60; Potassium 4.0 mmol/L (3.3-5.1); Sodium 142 mmol/L (135-145); Total Protein 6.3 g/dL (6.5-8.0)
== END 2024-11-04 10:11 | disposition home or self-care (01) ==
LOC: HO.LAB 10:10
PROVIDERS: PCP Family Medicine; Visit Provider Internal Medicine Gastroenterology
DX: B18.2 Chronic viral hepatitis C (principal); K74.60 Unspecified cirrhosis of liver; R18.8 Other ascites; I85.00 Esophageal varices without bleeding; I86.4 Gastric varices
CPT/HCPCS: 36415; 80053; 82306; 83036; 85025; 85027; 85610; 99212

== ENCOUNTER 2024-11-04 10:10 | Outpatient (AMB) | payer MEDICARE, SELFPAY ==
--- NOTE | 2024-11-04 10:14 | A.OFFVIS_ITS ---
Vital Signs 11/04/24 10:16 Height 5 ft 11 in Weight 154 lb 5.177 oz BMI 21.5 BP 156/91 H Blood Pressure Location Lt brachial Position Sitting Pulse 81 Intake Visit Reasons: 4 mo liver cirrhosis Intake Note: Krasten presents in the office as a 4 month follow up for Cirrhosis. CC: He states that he is not taking his meds due to his work schedules. He states that he has the bloating in the abdomen. Head Of Cytogenetics Required: No Allergies No Known Allergies Allergy (Verified 11/04/24 10:16) Medication List - Last Reconciled 11/04/24 by Malia Krueger MD blood sugar diagnostic (FreeStyle Lite Strips) Test four times a day or as directed. blood-glucose meter (FreeStyle Lite Meter kit) As Directed carvedilol 3.125 mg PO Q12H 30 days cholecalciferol (vitamin D3) (Vitamin D3) 25 mcg PO DAILY 90 days furosemide 20 mg PO BID lancets (FreeStyle Lancets) Test four times a day or as directed. [magnesium ] metformin 1,000 mg PO BID 30 days omeprazole 20 mg PO .daily 60 days spironolactone 50 mg PO QAM 90 days HPI HPI 4 mo liver cirrhosis: Details: GI clinic visit for this 74 YM for follow-up of chronic hepatitis C and cirrhosis complicated by ascites and SBP MELD score was 9 TODAY'S VISIT: Karsten presents in the office as a 4 month follow up for Cirrhosis. CC: He states that he is not taking his meds due to his work schedules. He states that he has the bloating in the abdomen. Stopped taking his fluid pills due to hot weather and extensive traveling for work. Notes abdominal distension and lower extremity edema. Did not go to [facility] - does not want to be treated for Hep C. PAST VISIT: EGD results reviewed with the patient. Had a therapeutic paracentesis on 06/01 and 7.5 litres of fluid was removed Denies recurrent abd distension since Patient cc abdominal pain with bloating, between diarrhea and constipation. Wt gain of 28 lbs over the past 4 months Notes worsening abdominal distension over the past few months Did not schedule an appt at [facility] since he has been on the road working PAST VISITS: Karsten presents in the office as a follow up EGD and COLO. CC: He states that he is here for the results. He has a sore on his leg that he would like you to look at. He stopped januvia due to them. He wants to know what you suggest that he do. He has an overactive digestive system and would like to know what the cause is. Questioning if he has Crohns Colitis. Main concern is what as should eat to have a good BM. EGD and colon results were reviewed with the patient Stopped taking Januvia on 12/29/23. Noted a rash with an ulcer on his right leg - clearing up since he stopped taking the Januvia Takes metformin. Can have diarrhea depending on his diet. Has not been back to work the month of December (sister cooks his meals) Diarrhea has been better since he has been taking home cooked meals Has not been seen at [facility] since he has been on the road. New referral sent and pt advised to make sure he follows up so decision can be made regarding Hep C treatment versus OLT Denies ETOH abuse. EGD results reviewed with the patient. Noted some throat pain after the procedure which resolved after 1 day. Denies abdominal distension Patient cc: diarrhea on and off, abdominal bloating. Denies any other GI issues. Has been doing ok since discharged Had Hep B in the mid 90's - from drinking out of a very dirty glass . Unsure how he acquired Hep C - denies IVDA or blood transfusion or exposure to anyone with Hep C. Appetite is good and abd distension has improved. Denies diarrhea, constipation or black stools. Notes rectal bleeding which is very rare. Patient denies symptoms of heartburn, dysphagia, nausea, vomiting, change in appetite or weight. Denies recent change in bowel habits, constipation, diarrhea, black stools or rectal bleeding. Patient denies major cardiac or pulmonary problems, loud snoring or sleep apnea Denies taking NSAIDS or being on chronic anticoagulation. Pt admits to smoking 1 PPD x 30-40 yrs and quitted recently He denies ETOH abuse Family hx is positive for Esophageal cancer in his Dad. Patient denies major cardiac or pulmonary problems, loud snoring or sleep apnea Denies problems with anesthesia in the past. Denies being on chronic anticoagulation. Patient denies known family history of colon polyps, colon cancer or other GI malignancies. LABS IN Inherited Health : Reviewed IMAGING STUDIES: 10/[address] SCAN SHOWED: No acute cardiopulmonary process seen in the chest. Cirrhosis with diffuse ascites and prominent collateral vessels likely varicose veins in the upper abdomen. Right renal cysts. ENDOSCOPIC STUDIES: 02/28/23 EGD SHOWED: ESOPHAGUS: Grade 2 to 3 four column non-bleeding varices from 32 to 40 cms with red laura signs. Band ligation of varices was performed and five bands were placed with flattening of varices. STOMACH: Moderate portal hypertensive gastropathy. Antral biopsies were obtained to check for H Pylori. A 2.5 cms non bleeding gastric varix in the fundus and grade 2 flap valve on retroflexed examination of the cardia. DUODENUM: Two 5 to 8 mm superficial non bleeding ulcers in the bulb Plan: Above findings were reviewed with the patient and Esophageal Varices and Esophageal Banding handouts were given in the discharge area. Pt was advised to start Omeprazole 20 mg daily for PUD and prophylaxis for banding ulcers. Repeat EGD in 3-4 months for FU of esophageal varices BIOPSIES SHOWED: Stomach, antrum, biopsy: Gastric antral mucosa within normal limits; negative for Helicobacter pylori, intestinal metaplasia and dysplasia PAST GI HISTORY BY REVIEW OF MEDICAL RECORDS: 11/17/22 Pt was seen during hospitalization at [facility]: 72 YM seen at [facility] ED on 11/16/22 for an elevated blood sugar and right lower extremity rash for 3 to 4 days.?Patient denies any past medical history he does not take any medicine.Pt reports having progressive abdominal distension for the past 2-3 yrs. He also notes early satiety and intermittent rectal bleeding (attributes to hemorrhoids) Pt reports a remote hx of having Hep B which resolved spontaneously. He gives a hx of constipation alternating with diarrhea. 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 States he has been donating his money to the [employer] He gives a hx of wt loss of 20 lbs over the past 6 mths (from 160 to 140 lbs). Pt denies having a colonoscopy in the past. Plan 72 YM seen at [facility] ED on 11/16/22 for an elevated blood sugar and right lower extremity rash for 3 to 4 days.?Pt reports having progressive abdominal distension for the past 2-3 yrs.He also notes early satiety and intermittent rectal bleeding (attributes to hemorrhoids) Pt reports a remote hx of having ?Hep B which resolved spontaneously. He gives a hx of wt loss of 20 lbs over the past 6 mths (from 160 to 140 lbs). He denies ETOH abuse Abd CT scan showed?Cirrhosis with diffuse ascites and prominent collateral vessels likely varicose veins in the upper abdomen. MELD score is 9 Etiology of cirrhosis is unclear - possibly viral hepatitis, hemochromatosis, SWENSON, autoimmune hepatitis, celiac disease RECOMMENDATIONS: 1.? Check TIP, Anti dsDNA, AMA, ASMA, SPEP, celiac serologies - added to am labs 2.? US guided paracenteses and send ascitic fluid for cell count, albumin, protein and amylase 11/18/22 Labs showed positive Hep C abAdvise checking Hep C viral load, genotype and cryoglobulins to determine if pt has active Hep C and needs treatment. 11/16/22 ABD & PELVIC CT SCAN SHOWED:Liver, ducts and gallbladder: The liver is homogeneous in density,lobulated contour and normal size. There is diffuse ascites. No radiopaque gallstones or wall thickening seen. Spleen: Spleen is borderline normal measuring 12). There is a small accessory splenule inferior to the hilum GI tract: There is moderate scattered stool, diverticuli and gas seen throughout the colon without significant distention or diverticulitis. The small bowel loops is nondistended and appears unremarkable. There is diffuse ascites. Scratch that Lymphovascular structures: Abdominal aorta is normal caliber. There are small bilateral retroperitoneal shotty lymph nodes. Prominent collateral vessels are seen in the upper abdomen. Pelvis: The bladder is distended without radiopaque calculi or bladder wall thickening. There is slightly high density urine noted in the bladder measuring 26 Hounsfield units. There is diffuse pelvic ascites. IMPRESSION: ?No acute cardiopulmonary process seen in the chest. ?Cirrhosis with diffuse ascites and prominent collateral vessels likely varicose veins in the upper abdomen. ?Right renal cysts 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 If needs a place will stay with sister. 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 Cognitive needs: No Hearing needs: No Vision needs: No Review of Systems Const All systems reviewed & are unremarkable except as noted in HPI and below Physical Exam Vital Signs: Last Vital Signs Pulse 81 11/04/24 10:16 BP 156/91 H 11/04/24 10:16 BMI result Body Mass Index 21.5 Const General: no acute distress Nutritional Appearance: average body habitus Orientation/consciousness: patient oriented x3 Limitations: no limitations HEENT Head: Yes normal to inspection Ears: hearing grossly normal bilaterally Mouth: Normal oral and palatal mucosa present Teeth and gingiva: poor dentition Eyes Sclerae: sclerae normal Pupils: Equal, round and reactive pupils present Neck Neck: Yes normal visual inspection Chest Chest palpation & inspection: normal inspection of the chest Resp Effort & Inspection: normal respiratory effort Auscultation: clear to auscultation bilaterally Cardio Palpation: normal PMI Rate: regular rate Rhythm: regular rhythm Heart sounds: S1 normal heart sound present, S2 normal heart sound present and no murmurs GI Inspection: Yes distended (due to ascites) Palpation (GI): Soft to palpation, nontender and No hepatosplenomegaly present Auscultation: normal bowel sounds Rectal Exam - Male: Yes deferred Skin General skin exam: no rashes or lesions noted and spider nevi Neuro General: patient oriented x3, gait normal and moves all extremities Cranial nerves: Yes Equal, round and reactive pupils present Extrem General: Yes pedal edema (1+ pitting edema) Psych Appearance: grossly normal Mental Status: mental status grossly normal Assessment & Plan Assessment & Plan (1) Chronic hepatitis C virus genotype 1b infection: Code(s): B18.2 - Chronic viral hepatitis C Category: Medical (2) Liver cirrhosis: Code(s): K74.60 - Unspecified cirrhosis of liver Category: Medical (3) Esophageal and gastric varices: Code(s): I85.00 - Esophageal varices without bleeding; I86.4 - Gastric varices Category: Medical (4) Ascites: Code(s): R18.8 - Other ascites Category: Medical Plan 74 YM admitted to [facility] in October, for an elevated blood sugar and right lower extremity rash for 3 to 4 days.? Pt reported progressive abdominal distension for the past 2-3 yrs, early satiety and intermittent rectal bleeding (which he attributed to hemorrhoids) He gave a hx of wt loss of 20 lbs over the past 6 months (from 160 to 140 lbs). He denied ETOH abuse Abd CT scan showed Cirrhosis with diffuse ascites and prominent collateral vessels likely varicose veins in the upper abdomen. 11/18/22 Labs showed positive Hep C ab TIP, Anti dsDNA, AMA, ASMA, SPEP, celiac serologies were negative Iron studies were consistent with anemia of chronic disease. Hepatitis C genotype was 1b and cryoglobulins were negative MELD score was 9 REDUCING THE RISK OF LIVER PROGRESSION: patient was advised to completely avoid use of alcohol Pt referred to [facility] for Hep C treatment and has not been seen at [facility] since he has been on the road. (Called [facility] and they stated they have reached out several times to the patient but never got an answer or call back) HCC SURVEILLANCE: the patient is at risk of developing hepatocellular carcinoma given the presence of cirrhosis and need 6 monthly imaging surveillance with either abdominal ultrasound (US) or multiphase cross-sectional imaging (CT or MRI). Last Abd CT in 10/2022 and US in 05/2024 had shown no focal liver lesions suspicious of HCC. He will be scheduled for follow-up liver ultrasound for ongoing surveillance. VACCINATIONS: Pt does not have serological evidence of prior exposure to or vaccination against hepatitis B or Hep A - GI RN to give 1st dose of Hep A and Hep B vaccine today Pt completed Hep A and B vaccination Patient should also remain up-to-date with all age-appropriate vaccinations including vaccination against pneumococcus. Since pt does not have a PCP, he was advised to establish care with a PCP.. SURVEILLANCE FOR GASTROESOPHAGEAL VARICES: Schedule EGD for FU of esophageal and gastric varices - scheduled on 05/24/24. QUESTION OF LIVER TRANSPLANTATION: As pt has a MELDNa score of 13, Pt has been referred to [facility] clinic for Hep C treatment Pt referred to the Hepatology clinic at [facility] for evaluation for OLT prior to initiating Hep C treatment (likely with Epclusa + Ribavarin) since he is at risk for worsening of liver disease with Hepatitis C treatment. 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 since he has been on the road. New referral sent and pt advised to make sure he follows up so decision can be made regarding Hep C treatment versus OLT 05/10/24 Notes wt gain with increased abd distension - advised to increase Furosemide to 40 mg twice a day (from 20 mg twice daily) and add spironolactone 50 mg daily Schedule abd US and therapeutic paracentesis. Has not scheduled an appt at [facility] since he has been on the road. 05/24/24 EGD SHOWED: ESOPHAGUS: Non-bleeding varices from 32 to 40 cms with red laura signs.- status post band ligation x 3 STOMACH: Moderate portal hypertensive gastropathy. A 1.5 cms varix in the gastric fundus without high risk stigmata for bleeding. DUODENUM: A few superficial erosions and 7-8 mm nonbleeding ulcers in the bulb Plan: Repeat EGD in 4 to 6 months for FU of esophageal varices 11/04/24 Stopped taking his fluid pills due to hot weather and extensive traveling for work. Notes abdominal distension and lower extremity edema. Did not go to [facility] - does not want to be treated for Hep C I just want to continue working and when its time . Offered to schedule him for a therapeutic paracentesis - he prefers to resume taking diuretics for management of ascites. Advised to schedule an EGD for FU of varices and pt would like to hold off EGD for now. Plans to return to [facility] in December and blas schedule an abd US in Dec for HCC surveillance. FU in 6 months Orders: Orders US abdomen limited Today K74.60 - Unspecified cirrhosis of liver, R18.8 - Other ascites Complete Blood Count no Diff Today K74.60 - Unspecified cirrhosis of liver Comprehensive Met. Panel Today K74.60 - Unspecified cirrhosis of liver Prothrombin Time INR Today K74.60 - Unspecified cirrhosis of liver Medications: Refilled omeprazole 20 mg PO .daily 60 caps 3RF 60 days K27.9 - Peptic ulcer, site unspecified, unspecified as acute or chronic, without hemorrhage or perforation Coding Level of Care Code Est Pt Level 4 (28674) Complex EM visit Add On G2211 Diagnoses Chronic hepatitis C virus genotype 1b infection B18.2 Liver cirrhosis K74.60 Esophageal and gastric varices I85.00; I86.4 Ascites R18.8 Time Spent (min) 22
[2024-11-04 10:16] VITALS: BP 156/91; PULSE 81; BMI 21.5
--- OUTSIDE RECORDS SUMMARY | 2024-11-04 10:50 | XMS_ITS | Data Portability ---
Author Organization [place] [facility] Address [address] [place] [address] Assessment No assessment recorded. Plan of Treatment [...] SNOMED-CT Code Diagnosis ICD10 Code Diagnosis Note [id number] SARA BONILLA, YOUTH CAREER SPECIALIST [address] [place] [address] 10/29/2019 13:06:04 10/29/2019 13:18:03 [id number] Mirella Pepe NP [address] [place] [address] 10/20/2020 13:43:00 10/20/2020 14:08:39 [id number] Maria Esther dumont, YOUTH CAREER SPECIALIST [address] [place] [address] 10/19/2021 10:34:30 10/25/2021 09:02:48 Health Concerns Section Related Observation LastModified by Organization Detai ls LastModified Time None Recorded Concern Status LastModified by Organization Details LastModified Time None Recorded Advance Directives Directive None Recorded Payers Insurance Date Sequence Insurance Name Policy Number Policy Haque Covered Member ID Haque Member ID Guarantor Name 10/29/2019 1 *SELF PAY* rafaela Vincedorcas
== END 2024-11-04 11:22 | disposition home or self-care (01) ==
LOC: HO.HGI 10:11
PROVIDERS: PCP Family Medicine; Visit Provider Internal Medicine Gastroenterology
DX: B18.2 Chronic viral hepatitis C (principal); K74.60 Unspecified cirrhosis of liver; I85.00 Esophageal varices without bleeding; I86.4 Gastric varices; R18.8 Other ascites
CPT/HCPCS: 99214; G2211

== ENCOUNTER 2025-01-26 09:53 | Outpatient (REF) | payer MEDICARE, SELFPAY ==
--- NOTE | ~2025-01-26 | US_ITS ---
EXAMINATION: US ABDOMEN LIMITED CLINICAL INFORMATION: Cirrhosis.. COMPARISON: June 07, 2024. TECHNIQUE: Real-time ultrasound of the upper and lower quadrants of the abdomen and pelvis with grayscale technique and using a curvilinear transducer. FINDINGS: There is a moderate to large volume of free fluid throughout the abdomen and pelvis. US/US abdomen limited IMPRESSION: Ascites, moderate to large volume. Positive exam.. Electronically signed by: Amarjit Good MD 01/26/2025 10:27 AM EDT
== END 2025-01-26 09:54 | disposition home or self-care (01) ==
LOC: HO.HMGCX 09:53
PROVIDERS: PCP Family Medicine; Visit Provider Internal Medicine Gastroenterology
DX: K74.60 Unspecified cirrhosis of liver (principal); R18.8 Other ascites
CPT/HCPCS: 76705

== ENCOUNTER → 2025-01-26 10:02 | Outpatient (BNV) | payer MEDICARE, SELFPAY | PROVIDERS: PCP Family Medicine; Visit Provider Radiology Diagnostic Radiology | DX: K74.60 Unspecified cirrhosis of liver (principal); R18.8 Other ascites | CPT/HCPCS: 76705 ==